=== PATIENT | female | born 1960 ===

== ENCOUNTER 2016-08-23 00:25 | Emergency (ER) | payer MEDICARE, MEDICAID ==
[2016-08-23 00:40] VITALS: BP 134/69; PULSE 61; RESP 17; TEMP 98.5; O2SAT 98
[2016-08-23] MEDS ORDERED: Sodium Chloride 0.9% 1,000 ML IV STA (00:53)
--- NOTE | 2016-08-23 00:58 | ED PDOC ---
HPI: Abdomen Time Seen by Provider: 08/23/16 00:37 Chief Complaint (Nursing): Abdominal Pain Chief Complaint (Provider): abdominal pain History Per: Patient History/Exam Limitations: no limitations Onset/Duration Of Symptoms: Days (1) Current Symptoms Are (Timing): Still Present Location Of Pain/Discomfort: Epigastric Quality Of Discomfort: Burning, "Pain" Associated Symptoms: Nausea, Vomiting (x2) Additional History Per: Patient Additional Complaint(s): 56 y/o female here for eval of abdominal pain x 5 hours. Patient states she didn't feel well since eating a jalepeno pepper earlier today; associated vomiting x 2. Patient states she called her PMD and was told to take Pepto Bismol but she did not have any so she decided to come here. Denies fever, chest pain, shortness of breath, palpitations, changes in bowel movements, recent travel, sick contacts. Past Medical History Reviewed: Historical Data, Nursing Documentation, Vital Signs Vital Signs: Last Vital Signs Temp 98.5 F 08/23/16 00:37 Pulse 61 08/23/16 00:37 Resp 17 08/23/16 00:37 BP 134/69 08/23/16 00:37 Pulse Ox 98 08/23/16 03:36 - Medical History PMH: Anxiety, Arthritis, Bipolar Disorder, Depression, Diabetes, HTN, Hypercholesterolemia, Hyperthyroidism, Hypothyroidism, Schizophrenia Denies: Hepatitis, HIV, Chronic Kidney Disease, Seizures, Sexually Transmitted Disease - Surgical History Surgical History: Cholecystectomy, Hernia Repair (umbilical hernia repair) - Family History Family History: States: Unknown Family Hx - Immunization History Hx Tetanus Toxoid Vaccination: Yes Hx Influenza Vaccination: Yes Hx Pneumococcal Vaccination: Yes - Home Medications Home Medications: Ambulatory Orders Medication Instructions Recorded Benztropine [Cogentin] 1 mg PO BID #60 tab 04/21/16 Haloperidol [Haldol] 5 mg PO BID #60 tab 04/21/16 Levothyroxine [Synthroid] 88 mcg PO DAILY@0630 #30 tab 04/21/16 [place] Carbonate ER Tab [[place] 450 mg PO Q12 #60 tab 04/21/16 Carbonate] Losartan [Cozaar] 50 mg PO DAILY #30 tab 04/21/16 Omeprazole 20 mg PO DAILY #30 04/21/16 Pramipexole [Mirapex] 1 mg PO BID #60 tab 04/21/16 Pregabalin [Lyrica] 75 mg PO BID #30 cap 04/21/16 Rosuvastatin Calcium [Crestor] 10 mg PO DAILY #30 tab 04/21/16 metFORMIN [glucOPHAGE] 500 mg PO BIDWM #60 tab 04/21/16 traZODone [Desyrel] 50 mg PO HS PRN #30 tab 04/21/16 DiphenhydrAMINE [Benadryl] 25 mg PO Q6 #8 cap 06/25/16 Prednisone [Deltasone] 20 mg PO BID #4 tablet 06/25/16 Famotidine [Pepcid] 20 mg PO BID #20 tab 08/23/16 Nitrofurantoin Macrocrystals 100 mg PO BID #13 cap 08/23/16 [Macrobid] Ondansetron ODT [Zofran ODT] 4 mg PO Q8 PRN #10 odt 08/23/16 - Allergies Allergies/Adverse Reactions: Allergies Allergy/AdvReac Type Severity Reaction Status Date / Time tomato Allergy RASH Verified 10/06/15 12:52 - Laboratory Results Result Diagrams: 08/23/16 01:16 08/23/16 01:16 - ECG O2 Sat by Pulse Oximetry: 98 - Progress ED Course And Treament: labs, neneuriIV fluids, IV zofran, IV pepcid, CTuri EXAM: CT Abdomen and Pelvis With Intravenous Contrast CLINICAL HISTORY: 56 years old, female; Pain; Abdominal pain; Generalized; Prior surgery; Surgery date: 6+ months; Surgery type: Gall bladder removed; Additional info: Abd pain, vomiting, elevated lipase TECHNIQUE: Axial computed tomography images of the abdomen and pelvis with intravenous contrast. This CT exam was performed using one or more of the following dose reduction techniques : automated exposure control, adjustment of the mA and/or kV according to patient size, and/ or use of iterative reconstruction technique. Coronal and sagittal reformatted images were created and reviewed. CONTRAST: 90 mL of [id number] administered intravenously. COMPARISON: No relevant prior studies available. FINDINGS: Lower thorax: Minimal atelectasis/scarring. ABDOMEN: Liver: Unremarkable. No mass. Gallbladder and bile ducts: Cholecystectomy. No ductal dilation. Pancreas: No peripancreatic stranding. No peripancreatic collection. Spleen: No splenomegaly. Adrenals: No mass. Kidneys and ureters: Too small to characterize lesion within RIGHT kidney. No hydronephrosis. Stomach and bowel: No definite mural thickening. No obstruction. Appendix: Normal caliber. No inflammation. PELVIS: Bladder: Unremarkable. Reproductive: Unremarkable as visualized. ABDOMEN and PELVIS: Intraperitoneal space: No significant fluid collection. No free air Bones/joints: No acute fracture. Soft tissues: Unremarkable. Vasculature: Patent splenic artery and vein. Mild atherosclerotic disease. No aneurysm. Lymph nodes: Several subcentimeter short axis mesenteric lymph nodes, nonspecific. IMPRESSION: 1. No CT evidence of pancreatitis or complications related to pancreatitis. 2. Incidental/non-acute findings are described above. On re-eval, patient states pain resolved; tolerating PO Patient educatd on findings, discharged with rx Macrobid (dose given in ED), zofran, pepcid. Advised follow up PMD 2-3 days. Return to ED for worsening/concerning symptoms. Disposition - Clinical Impression Clinical Impression: Abdominal pain, UTI (urinary tract infection) - Patient ED Disposition Is Patient to be Admitted: No Counseled Patient/Family Regarding: Studies Performed, Diagnosis, Need For Followup, Rx Given - Disposition Disposition: Routine/Home Disposition Time: 04:00 Condition: IMPROVED Prescriptions: Famotidine [Pepcid] 20 mg PO BID #20 tab Nitrofurantoin Macrocrystals [Macrobid] 100 mg PO BID #13 cap Ondansetron ODT [Zofran ODT] 4 mg PO Q8 PRN #10 odt PRN Reason: Nausea/Vomiting Instructions: Abdominal Pain (ED), Urinary Tract Infection in Women (ED) Print Language: ARABIC
[2016-08-23 01:23] LABS: BASO # 0.1 K/uL (0.0-0.2); BASO % 0.7 % (0.0-2.0); EOS # 0.3 K/uL (0.0-0.7); EOS % 3.3 % (0.0-4.0); LYMPH # 2.3 K/uL (1.0-4.3); LYMPH % 29.1 % (20.0-40.0); MEAN CORPUSCULAR HEMOGLOBIN 31.4 pg (27.0-31.0); MEAN CORPUSCULAR HGB CONC 33.4 g/dL (33.0-37.0); MEAN PLATELET VOLUME 8.5 fl (7.2-11.7); MONO # 0.6 K/uL (0.0-0.8); MONO % 7.1 % (0.0-10.0); NEUT # 4.8 K/uL (1.8-7.0); NEUT % 59.8 % (50.0-75.0); NRBC % 0.1 % (0.0-0.0); RED CELL DISTRIBUTION WIDTH 13.3 % (11.5-14.5)
[2016-08-23 01:37] LABS: ALB/GLOB RATIO 1.5 (1.0-2.1); ALKALINE PHOSPHATASE 98 U/L (38-126); ALT/SGPT 43 U/L (9-52); AST/SGOT 28 U/L (14-36); BILIRUBIN,TOTAL 1.1 mg/dl (0.2-1.3); BLOOD UREA NITROGEN 11 mg/dl (7-17); CALCIUM 9.6 mg/dL (8.4-10.2); CARBON DIOXIDE 25 mmol/L (22-30); CHLORIDE 104 mmol/L (98-107); GFR AFRICAN-AMERICAN > 60; GLUCOSE,RANDOM 194 mg/dL (65-105); LIPASE 425 U/L (23-300); POTASSIUM 4.3 MMOL/L (3.6-5.0); SODIUM 140 mmol/l (132-148); TOTAL PROTEIN 6.8 G/DL (6.3-8.2)
[2016-08-23 01:58] LABS: RBC URINE 4 /hpf (0-3); URINE BILIRUBIN NEGATIVE (NEGATIVE); URINE BLOOD NEGATIVE (NEGATIVE); URINE COLOR YELLOW (YELLOW); URINE GLUCOSE (UA) NEG (Normal); URINE KETONE NEGATIVE (NEGATIVE); URINE LEUKOCYTE ESTERASE MOD Leu/uL (Negative); URINE PROTEIN NEGATIVE (NEGATIVE); WBC URINE 11 /hpf (0-5)
[2016-08-23] MEDS ORDERED: Iohexol 300 50 ML ONE (02:34)
[2016-08-23] MEDS ORDERED: Sodium Chloride 0.9% 50 ML IV ONE (02:35)
--- NOTE | 2016-08-23 03:31 | CT ---
EXAM: CT Abdomen and Pelvis With Intravenous Contrast CLINICAL HISTORY: 56 years old, female; Pain; Abdominal pain; Generalized; Prior surgery; Surgery date: 6+ months; Surgery type: Gall bladder removed; Additional info: Abd pain, vomiting, elevated lipase TECHNIQUE: Axial computed tomography images of the abdomen and pelvis with intravenous contrast. This CT exam was performed using one or more of the following dose reduction techniques: automated exposure control, adjustment of the mA and/or kV according to patient size, and/or use of iterative reconstruction technique. Coronal and sagittal reformatted images were created and reviewed. CONTRAST: 90 mL of [id number] administered intravenously. COMPARISON: No relevant prior studies available. FINDINGS: Lower thorax: Minimal atelectasis/scarring. ABDOMEN: Liver: Unremarkable. No mass. Gallbladder and bile ducts: Cholecystectomy. No ductal dilation. Pancreas: No peripancreatic stranding. No peripancreatic collection. Spleen: No splenomegaly. Adrenals: No mass. Kidneys and ureters: Too small to characterize lesion within RIGHT kidney. No hydronephrosis. Stomach and bowel: No definite mural thickening. No obstruction. Appendix: Normal caliber. No inflammation. PELVIS: Bladder: Unremarkable. Reproductive: Unremarkable as visualized. ABDOMEN and PELVIS: Intraperitoneal space: No significant fluid collection. No free air. Bones/joints: No acute fracture. Soft tissues: Unremarkable. Vasculature: Patent splenic artery and vein. Mild atherosclerotic disease. No aneurysm. Lymph nodes: Several subcentimeter short axis mesenteric lymph nodes, nonspecific. IMPRESSION: 1. No CT evidence of pancreatitis or complications related to pancreatitis. 2. Incidental/non-acute findings are described above.
== END 2016-08-23 04:08 | disposition home or self-care (01) ==
LOC: H.ER 00:25
DX: N39.0 Urinary tract infection, site not specified (principal); R10.9 Unspecified abdominal pain; R11.10 Vomiting, unspecified
CPT/HCPCS: 74177; 80053; 81003; 83690; 85025; 96361; 96374; 96375; 99284; J2405; J7040; Q9967

== ENCOUNTER 2016-10-16 02:42 | Inpatient (IN) | payer MEDICARE, MEDICAID ==
[2016-10-16 02:53] VITALS: O2SAT 98
[2016-10-16] MEDS ORDERED: Sodium Chloride 0.9% 1,000 ML IV STA (03:18)
--- NOTE | 2016-10-16 03:22 | ED PDOC ---
HPI: General Adult Time Seen by Provider: 10/16/16 03:04 Chief Complaint (Nursing): Abdominal Pain Chief Complaint (Provider): abdomen, leg, feet cramps History Per: Patient History/Exam Limitations: no limitations Onset/Duration Of Symptoms: Days, Waxing/Waning Current Symptoms Are (Timing): Still Present Additional History Per: Patient Additional Complaint(s): 56 y/o female presents for eval of intermittent abdominal, leg, and feet cramps x weeks. Patient states she is taking Lyrica for symptoms but they are not helping. Patient states she thinks these symptoms are "affecting my psyche". HPI limited, patient poor historian, going off on tangents but able to be redirected, laughing at self. States she is compliant with psych medications. Denies fever, nausea/vomiting, chest pain, shortness of breath, palpitations, recent travel, suicidal/homicidal ideations. Past Medical History Reviewed: Historical Data, Nursing Documentation, Vital Signs Vital Signs: Last Vital Signs Temp 98.2 F 10/16/16 02:50 Pulse 72 10/16/16 02:50 Resp 16 10/16/16 02:50 BP 154/102 H 10/16/16 02:50 Pulse Ox 98 10/16/16 05:57 - Medical History PMH: Anxiety, Arthritis, Bipolar Disorder, Depression, Diabetes, HTN, Hypercholesterolemia, Hyperthyroidism, Hypothyroidism, Schizophrenia Denies: Hepatitis, HIV, Chronic Kidney Disease, Seizures, Sexually Transmitted Disease - Surgical History Surgical History: Cholecystectomy, Hernia Repair (umbilical hernia repair) - Family History Family History: States: Unknown Family Hx - Social History Current smoker - smoking cessation education provided: No Alcohol: None Drugs: Denies - Immunization History Hx Tetanus Toxoid Vaccination: Yes Hx Influenza Vaccination: Yes Hx Pneumococcal Vaccination: Yes - Home Medications Home Medications: Ambulatory Orders Medication Instructions Recorded Benztropine [Cogentin] 1 mg PO BID #60 tab 04/21/16 Haloperidol [Haldol] 5 mg PO BID #60 tab 04/21/16 Levothyroxine [Synthroid] 88 mcg PO DAILY@0630 #30 tab 04/21/16 [place] Carbonate ER Tab [[place] 450 mg PO Q12 #60 tab 04/21/16 Carbonate] Losartan [Cozaar] 50 mg PO DAILY #30 tab 04/21/16 Omeprazole 20 mg PO DAILY #30 capsule. 04/21/16 Pramipexole [Mirapex] 1 mg PO BID #60 tab 04/21/16 Pregabalin [Lyrica] 75 mg PO BID #30 cap 04/21/16 Rosuvastatin Calcium [Crestor] 10 mg PO DAILY #30 tab 04/21/16 metFORMIN [glucOPHAGE] 500 mg PO BIDWM #60 tab 04/21/16 traZODone [Desyrel] 50 mg PO HS PRN #30 tab 04/21/16 DiphenhydrAMINE [Benadryl] 25 mg PO Q6 #8 cap 06/25/16 Prednisone [Deltasone] 20 mg PO BID #4 tablet 06/25/16 Famotidine [Pepcid] 20 mg PO BID #20 tab 08/23/16 Nitrofurantoin Macrocrystals 100 mg PO BID #13 cap 08/23/16 [Macrobid] Ondansetron ODT [Zofran ODT] 4 mg PO Q8 PRN #10 odt 08/23/16 - Allergies Allergies/Adverse Reactions: Allergies Allergy/AdvReac Type Severity Reaction Status Date / Time tomato Allergy RASH Verified 10/16/16 02:50 Review of Systems ROS Statement: Except As Marked, All Systems Reviewed And Found Negative Gastrointestinal: Positive for: Abdominal Pain Musculoskeletal: Positive for: Leg Pain Psych: Positive for: Psychosis Physical Exam - Reviewed Nursing Documentation Reviewed: Yes Vital Signs Reviewed: Yes - Physical Exam Appears: Positive for: Well, Non-toxic, No Acute Distress Head Exam: Positive for: ATRAUMATIC, NORMAL INSPECTION, NORMOCEPHALIC Skin: Positive for: Normal Color Eye Exam: Positive for: Normal appearance ENT: Positive for: Normal ENT Inspection Cardiovascular/Chest: Positive for: Regular Rate, Rhythm Respiratory: Positive for: Normal Breath Sounds Gastrointestinal/Abdominal: Positive for: Tenderness (epigastric) Back: Positive for: Normal Inspection Extremity: Positive for: Normal ROM. Negative for: Pedal Edema, Calf Tenderness , Swelling Neurologic/Psych: Positive for: Alert, Oriented, Mood/Affect (manic) - Laboratory Results Result Diagrams: 10/16/16 03:36 10/16/16 03:36 - ECG ECG: Positive for: Viewed By Me (reviewed by ED attending) ECG Rhythm: Positive for: Sinus Bradycardia O2 Sat by Pulse Oximetry: 98 Pulse Ox Interpretation: Normal - Radiology X-Ray: Viewed By Mo X-Ray Interpretation: No Acute Disease - Progress ED Course And Treament: labs, urine, IV fluids, IV pepcid, crisis eval Patient evaluated by labor relations worker; to be admitted as per Robert Sepulveda. Medical Decision Making Medical Decision Making: Case discussed with ED attending Dr. Hernandez, who agrees patient medically stable for psych admission Disposition - Clinical Impression Clinical Impression: Abdominal cramps, Leg cramps, Schizophrenia - Disposition Referrals: Delilah Chang MD [Primary Care Provider] - Disposition Time: 05:59 Condition: STABLE
[2016-10-16 03:39] LABS: BASO % 0.4 % (0.0-2.0); EOS # 0.3 K/uL (0.0-0.7); EOS % 2.7 % (0.0-4.0); LYMPH % 30.8 % (20.0-40.0); MEAN CELL VOLUME 94.6 fl (81.0-99.0); MEAN CORPUSCULAR HEMOGLOBIN 32.3 pg (27.0-31.0); MEAN CORPUSCULAR HGB CONC 34.1 g/dL (33.0-37.0); MEAN PLATELET VOLUME 8.2 fl (7.2-11.7); MONO # 0.5 K/uL (0.0-0.8); MONO % 5.3 % (0.0-10.0); NEUT % 60.8 % (50.0-75.0); NRBC % 0.1 % (0.0-0.0); RBC 4.02 Mil/uL (3.80-5.20); RED CELL DISTRIBUTION WIDTH 14.3 % (11.5-14.5); WHITE BLOOD COUNT 9.8 K/uL (4.8-10.8)
[2016-10-16 03:48] LABS: ALB/GLOB RATIO 1.5 (1.0-2.1); ALBUMIN 4.5 g/dL (3.5-5.0); ALT/SGPT 63 U/L (9-52); AST/SGOT 34 U/L (14-36); BLOOD UREA NITROGEN 14 mg/dl (7-17); GFR AFRICAN-AMERICAN > 60; GFR NON-AFRICAN AMERICAN > 60; LIPASE 336 U/L (23-300)
[2016-10-16 05:42] LABS: SQUAMOUS EPITHIAL < 1 /hpf (0-5); URINE BACTERIA RARE (<OCC); URINE BILIRUBIN NEGATIVE (NEGATIVE); URINE BLOOD NEGATIVE (NEGATIVE); URINE CLARITY CLEAR (Clear); URINE COLOR YELLOW (YELLOW); URINE GLUCOSE (UA) NEG (Normal); URINE LEUKOCYTE ESTERASE NEG Leu/uL (Negative); URINE NITRATE NEGATIVE (NEGATIVE); URINE PROTEIN NEGATIVE (NEGATIVE); URINE UROBILINOGEN 0.2-1.0 mg/dL (0.2-1.0)
[2016-10-16 05:56] LABS: BARBITURATES, UR NEGATIVE (NEGATIVE); BENZODIAZEPINES, UR NEGATIVE (NEGATIVE); OPIATES, UR NEGATIVE (NEGATIVE); PHENCYCLIDINE, UR NEGATIVE (NEGATIVE)
[2016-10-16] MEDS ORDERED: Magnesium Hydroxide Susp 30 ml UD PO PRN (08:59)
[2016-10-16] MEDS ORDERED: Alum-Mag Hydrox-Simethicone Susp (30 mL) PO PRN (08:59)
[2016-10-16] MEDS ORDERED: DiphenhydrAMINE 50 mg/ml Inj IM PRN (08:59)
--- NOTE | 2016-10-16 09:49 | CARD ---
APPROVED REPORT EKG Measurement Heart [id number] <Conclusion> Sinus bradycardia Moderate voltage criteria for LVH, may be normal variant T wave abnormality, consider anterior ischemia Abnormal ECG
--- NOTE | 2016-10-16 10:40 | RAD ---
HISTORY: admit COMPARISON: Comparison chest dated 04/19/2016. Comparison also made with prior the CT scan abdomen pelvis 08/23/2016 which imaged both lung bases. FINDINGS: LUNGS: Minimal linear atelectasis/ scarring left lung base PLEURA: No significant pleural effusion identified, no pneumothorax apparent. CARDIOVASCULAR: Normal. OSSEOUS STRUCTURES: No significant abnormalities. VISUALIZED UPPER ABDOMEN: Normal. OTHER FINDINGS: None. IMPRESSION: Minimal linear atelectasis/ scarring left lung base
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
[2016-10-16 20:01] VITALS: RESP 18
[2016-10-17] MEDS: Levothyroxine 88 MCG TAB PO SCH (06:27)
[2016-10-17 08:51] LABS: T4 12.1 ug/dl (5.5-11.0)
--- NOTE | 2016-10-17 11:10 | PCM.PYCHPN ---
Psychiatric Progress Note - Psychiatric Progress Note Patient seen today, length of contact: discussed with team Patient Chief Complaint: i feel more calm Problems Identified/Issues Discussed: pt states she is feeling better. endorses improved sleep. states she may have missed her medications when she was in the community. she is without aggression or agitation. Medication Change: No Medical Record Reviewed: Yes Mental Status Examination - Cognitive Function Orientation: Person, Place, Situation, Time Memory: Intact Attention: WNL Concentration: WNL Association: WNL Fund of Knowledge: [facility] Decription of patient's judgement and insights: fair - Mood Mood: Neutral - Affect Affect: Broad - Speech Speech: Appropriate - Formal Thought Process Formal Thought Process: Loosening of associations Psychotic Thoughts and Behaviors: improved - Suicidal Ideation Suicidal Ideation: No - Homicidal Ideation Homicidal Ideation: No Goal/Treatment Plan - Goal/Treatment Plan Need for Continued Stay: Remain at risks for inpatient hospitalization Progress Toward Problem(s) and Goals/Treatment Plan: schizoaffective disorder lithium level low- may have been non-adherent- will recheck in 3 days continue current medications disposition planning Estimated Date of D/C: 10/20/16
[2016-10-17 18:30] VITALS: TEMP 97.7
[2016-10-18] MEDS: Levothyroxine 88 MCG TAB PO SCH (06:08)
[2016-10-18 08:51] VITALS: BP 157/84; PULSE 58
--- NOTE | 2016-10-18 13:11 | PCM.PYCHDC ---
Mental Status Examination - Mental Status Examination Orientation: Person, Place, Situation, Time Memory: Intact Mood: Neutral Affect: Broad Speech: Appropriate Attention: WNL Concentration: WNL Association: WNL Fund of Knowledge: WNL Formal Thought Process: Delusions, Loosening of associations, Flight of ideas Description of patient's judgement and insight: fair Psychotic Thoughts and Behaviors: denies a/v hallucinations. pt with some loosening of associations Suicidal Ideation: No Current Homicidal Ideation?: No Plan: pt denies any suicidal or homicidal thoughts/plans of intent Discharge Summary - Discharge Note Reason for Hospitalization: lois, non-adherence with treatment Psychiatric History (includes Medical, Family, Personal Hx): history of schizoaffective disorder Laboratory Data: Abnormal Lab Results 10/17/16 10/17/16 08:15 08:15 Hemoglobin A1c 6.5 RPR Nonreactive t4 is elevated, dr casillas following Consultations:: List each consultation separately and include: 1. Reason for request. 2. Findings. 3. Follow-up Consultations: seen by dr. casillas Summary of Hospital Course include:: 1. Description of specific treatment plan utilized for patients during their course of treatmen. 2. Summarize the time- course for resolution of acute symptoms and/or regressed behaviors. 3. Describe issues identified and worked on during hospitalization. 4. Describe medication utilized. 5. Describe medical problems identified and treated. 6. Reassessment of suicide risk Summary of Hospital Course: pt reported no sleep for 72 hours. apparently adherent to meds, but no lithium level checked in ER. she is presenting as delusional, manic and with disorganized thoughts. pt is pacing the halls, stating she is feeling too energetic. she discusses how her delusions tell her that this proposal manager writer is a necktie stitcher, so she is worried to say too much. she is agreeable to start her usual medications. per chart pt has not been sleeping and pt's son was also concerned with her recent behavior. hospital course admitted to [facility] and oriented to the unit. placed on routine safety protocols. seen by her medical doctor. started back on her home medications which she tolerated. her symptoms improved. she was denying any suicidal or homicidal thoughts at the time of discharge. she was agreeing to return to her adult day program and other providers - Final Diagnosis (DSM 5) Condition upon Discharge: STABLE DSM 5: schizoaffective disorder Disposition: HOME/ ROUTINE Follow-up Treatment Plan: follow up with aftercare as directed take medications as prescribed do not use alcohol, tobacco or other illicit substances call 911 if any suicidal or homicidal thoughts Prescriptions/Medication Reconciliation: Atorvastatin [Lipitor] 20 mg PO DAILY #30 tab Benztropine [Cogentin] 1 mg PO BID #60 tab Haloperidol [Haldol] 5 mg PO BID #60 tab Levothyroxine [Synthroid] 88 mcg PO DAILY@0630 #30 tab [place] Carbonate [[place] Carbonate 300MG] 300 mg PO TID #45 cap Losartan [Cozaar] 50 mg PO DAILY #30 tab metFORMIN [glucOPHAGE] 500 mg PO BID #60 tab traZODone [Desyrel] 50 mg PO HS PRN #30 tab PRN Reason: Insomnia - Smoking Cessation Smoking Cessation Medication prescribed: No - Antipsychotic Medications Pt discharged on 2 or more routine antipsychotic medications: No
--- NOTE | 2016-10-30 12:08 | CON ---
THE PT LABS WERE REVIEWED. THEY WERE DATED 08/03/2016. HER BLOOD GLUCOSE 125. BUN 12. CREATININE 0.65. ALT 47, WHICH WAS SLIGHTLY ELEVATED ABOVE THE NORMAL RANGE OF 32 Iu/L. LDL 105 mg/dL. TRIGLYCERIDES 153 mg/dL. HCL 36 mg/dL. Hb A1c ON 08/03/16 WAS 6.5, WHICH WAS ON TARGET. TSH 1.80 uIU/mL. VITAMIN D 25 HYDROXY 14.9, WHICH WAS LOW. THE PT HAD NORMAL URINE MICROALBUMIN OF 18.9 ug/mL. CC: THE PT DOES COMPLAIN OF OCCASIONAL NUMBNESS AND TINGLING OF HER FEET. SHE HAS BEEN STARTED ON LYRICA 75 mg TWICE DAILY. PMHX: HYPOTHYROIDISM, PROTEINURIA, DIABETIC NEUROPATHY, GASTRITIS, OSTEOARTHRITIS, BIPOLAR DISORDER ALLERGIES: NO KNOWN DRUG ALLERGIES MEDICATIONS: LEVEMIR 10 UNITS SUBACUTE QAM, LOSARTAN 15 mg DAILY, LEVOXYL 88 MICROGRAMS DAILY. OMEPRAZOLE 20 MG DAILY HOURS BEFORE BREAKFAST, CRESTOR 10 MG DAILY, LYRICA 75 MG TWICE DAILY, MIRAPEX 1 MG TWICE DAILY OB HX:G1 F1 L1 SOCIAL HX: PT DOES NOT SMOKE CIGARETTES OR CONSUME ETOH. FAMILY HX: FATHER WITH HX OF DIABETES. MOTHER SECONDARY TO COLON CA. PT HAS 4 BROTHERS AND 1 SISTER WHO ARE HEALTHY. ROS: UNREMARKABLE EXCEPT MENTIONED ABOVE PEX: 56 YEAR OLD COOPERATIVE FEMALE VITAL SIGNS- BP 118/76, HR 72 BPM, TEMP: 98.6, RR: 16 RESP/MIN SKIN: WARM, DRY HEENT: ATRAUMATIC AND NORMOCEPHALIC, ANICTERIC SCLERA, PUPILS EQUAL ROUND AND REACTIVE TO LIGHT AND ACCOMMODATION, NECK SUPPLE, NO JVD, NO LYMPHADENOPATHY LUNGS: CLEAR TO AUSCULTATION HEART: RRR NORMAL S1S2, NO MURMUR ABD: POSITIVE BS, SOFT, NONTENDER EXTREMITIES: NO CYANOSIS, CLUBBING OR EDEMA IMPRESSIONS: DIABETES WITH NEUROPATHY HTN HYPERCHOLESTEROLEMIA ELEVATED LIVER FUNCTION STUDIES HYPERTHYROIDISM GASTRITIS BIPOLAR DISORDER CBC AND COMP METABOLIC PANEL WELL UA HAVE BEEN ORDERED. THE PT WILL CONTINUE ON METFORMIN ER 500 MG TWICE DAILY. THE PT WILL CONTINUE ON LEVOTHYROXINE 88 MICROGRAMS DAILY FOR MANAGEMENT OF HYPOTHYROIDISM. FINGER STICKS QAM PRIOR TO BREAKFAST HAS BEEN ORDERED. THE PT WILL BE ON A 1600 CALORIE ADA DIET. MTDD
== END 2016-10-18 14:08 | disposition home or self-care (01) | DRG 885 ==
LOC: H.ER 02:42 → H.ERHOLD 05:58 → H.PSYCH 08:52
PROVIDERS: ADMIT Psychiatry & Neurology Psychiatry; ATTEND Nurse Practitioner Psychiatric/Mental Health
PROC: GZ56ZZZ Individual Psychotherapy, Supportive (ICD-10-PCS; principal; 2016-10-16)
DX: F25.9 Schizoaffective disorder, unspecified (principal); E11.9 Type 2 diabetes mellitus without complications; I10 Essential (primary) hypertension; E03.9 Hypothyroidism, unspecified; Z91.018 Allergy to other foods; E78.00 Pure hypercholesterolemia, unspecified; Z91.19 Patient's noncompliance with other medical treatment and regimen

== ENCOUNTER 2016-10-22 11:20 | Emergency (ER) | payer MEDICARE, MEDICAID ==
[2016-10-22 11:26] VITALS: BMI 24.8
--- NOTE | 2016-10-22 12:13 | ED PDOC ---
HPI: Psych/Substance Abuse Time Seen by Provider: 10/22/16 11:31 Chief Complaint (Nursing): Psychiatric Evaluation Chief Complaint (Provider): Denies complaint - History of bipolar, acting manic History Per: Patient History/Exam Limitations: no limitations Onset/Duration Of Symptoms: Days Additional Complaint(s): Pt denies complaint. PT was avting manic according to EMS and neighbors and a neightor called 911. Pt acting bizarre in ER discussing anatomy of the body. Past Medical History Reviewed: Historical Data, Nursing Documentation, Vital Signs Vital Signs: Last Vital Signs Temp 98.6 F 10/22/16 11:23 Pulse 95 H 10/22/16 11:23 Resp 20 10/22/16 11:23 BP 165/91 H 10/22/16 11:23 Pulse Ox 96 10/22/16 11:23 - Medical History PMH: Bipolar Disorder, Diabetes, HTN - Surgical History Surgical History: No Surg Hx - Family History Family History: States: No Known Family Hx - Living Arrangements Living Arrangements: With Family (Son) - Social History Alcohol: None Drugs: Denies - Allergies Allergies/Adverse Reactions: Allergies Allergy/AdvReac Type Severity Reaction Status Date / Time No Known Allergies Allergy Verified 10/22/16 11:25 Review of Systems ROS Statement: Except As Marked, All Systems Reviewed And Found Negative Constitutional: Negative for: Fever, Chills Cardiovascular: Negative for: Chest Pain Respiratory: Negative for: Shortness of Breath Psych: Positive for: Other Physical Exam - Reviewed Nursing Documentation Reviewed: Yes Vital Signs Reviewed: Yes - Physical Exam Appears: Positive for: Well, Non-toxic, No Acute Distress Head Exam: Positive for: ATRAUMATIC, NORMAL INSPECTION, NORMOCEPHALIC Skin: Positive for: Normal Color, Warm, DRY Eye Exam: Positive for: Normal appearance ENT: Positive for: Normal ENT Inspection Neck: Positive for: Normal, Painless ROM Cardiovascular/Chest: Positive for: Regular Rate, Rhythm Respiratory: Positive for: CNT, Normal Breath Sounds Gastrointestinal/Abdominal: Positive for: Normal Exam, Bowel Sounds, Soft Back: Positive for: Normal Inspection Extremity: Positive for: Normal ROM Neurologic/Psych: Positive for: Alert, Oriented - Laboratory Results Result Diagrams: 10/22/16 11:50 10/22/16 11:50 - ECG O2 Sat by Pulse Oximetry: 96 Medical Decision Making Medical Decision Making: PT medically stable for admission to psychiatric unit. Disposition - Clinical Impression Clinical Impression: Bipolar 1 disorder - Patient ED Disposition Is Patient to be Admitted: Yes Counseled Patient/Family Regarding: Need For Followup - Disposition Disposition: Discharged to Psych Hospital Disposition Time: 20:19 Condition: STABLE
[2016-10-22 12:48] LABS: HEMOGLOBIN 14.3 g/dL (12.0-16.0); MEAN CELL VOLUME 94.6 fl (81.0-99.0); MEAN CORPUSCULAR HGB CONC 33.8 g/dL (33.0-37.0); RBC 4.48 Mil/uL (3.80-5.20); RED CELL DISTRIBUTION WIDTH 14.6 % (11.5-14.5); WHITE BLOOD COUNT 9.8 K/uL (4.8-10.8)
[2016-10-22 12:50] LABS: SQUAMOUS EPITHIAL < 1 /hpf (0-5); URINE BACTERIA RARE (<OCC); URINE BILIRUBIN NEGATIVE (NEGATIVE); URINE BLOOD NEGATIVE (NEGATIVE); URINE CALCIUM OXALATE CRYSTALS FEW /hpf (<OCC); URINE CLARITY SLIGHTY-CLOUDY (Clear); URINE COLOR YELLOW (YELLOW); URINE GLUCOSE (UA) NEG (Normal); URINE LEUKOCYTE ESTERASE LARGE Leu/uL (Negative); URINE NITRATE NEGATIVE (NEGATIVE); URINE PROTEIN 30 mg/dL (NEGATIVE)
[2016-10-22 12:57] LABS: ALB/GLOB RATIO 1.5 (1.0-2.1); ALBUMIN 5.1 g/dL (3.5-5.0); ALT/SGPT 66 U/L (9-52); AST/SGOT 46 U/L (14-36); BLOOD UREA NITROGEN 18 mg/dl (7-17); CALCIUM 10.3 mg/dL (8.4-10.2); GFR AFRICAN-AMERICAN > 60; GFR NON-AFRICAN AMERICAN > 60
[2016-10-22 13:06] LABS: BARBITURATES, UR NEGATIVE (NEGATIVE); BENZODIAZEPINES, UR NEGATIVE (NEGATIVE); OPIATES, UR NEGATIVE (NEGATIVE); PHENCYCLIDINE, UR NEGATIVE (NEGATIVE)
--- NOTE | 2016-10-22 14:57 | RAD ---
HISTORY: admission COMPARISON: No prior study available comparison FINDINGS: LUNGS: No active pulmonary disease. PLEURA: No significant pleural effusion identified, no pneumothorax apparent. CARDIOVASCULAR: Normal. OSSEOUS STRUCTURES: Mild multilevel degenerative spondylosis of the thoracic spine VISUALIZED UPPER ABDOMEN: Normal. OTHER FINDINGS: None. IMPRESSION: No acute infiltrates.
--- NOTE | 2016-10-22 18:20 | US ---
HISTORY: abnormal LFT COMPARISON: None. TECHNIQUE: Sonographic evaluation of the abdomen. Examination is limited due to patient's inability to breath hold. FINDINGS: LIVER: Measures approximately 15 cm. Liver demonstrates smooth contour however increased echotexture suggesting fatty infiltration. Other infiltrative hepatocellular disease process not excluded. No mass. No intrahepatic bile duct dilatation. GALLBLADDER: Gallbladder is not visualized on this study. Clinical correlation with history recommended. . COMMON BILE DUCT: Measures 5.8 mm mm. No stones. No dilatation. PANCREAS: Pancreas is not visualized due to body habitus and bowel gas. RIGHT KIDNEY: Measures 10.9 x 4.5 x 6.2cm. Normal echogenicity. No calculus, mass, or hydronephrosis. LEFT KIDNEY: Measures 10.7 x 4.7 x 4.3cm. Normal echogenicity. No calculus, mass, or hydronephrosis. SPLEEN: Spleen exhibits normal size measuring approximately 0.6 cm. No evidence of splenic mass collection or calcification. AORTA: No aneurysmal dilatation. IVC: Unremarkable. OTHER FINDINGS: None. IMPRESSION: The liver exhibits increased echotexture likely representing fatty infiltration however other infiltrative hepatic cellular disease process not excluded. Clinical correlation recommended. The gallbladder is not visualized. Correlation with surgical history recommended. Pancreas is also not visualized due to body habitus and bowel gas as well as inability for patient to breath hold
[2016-10-22 19:42] VITALS: BP 157/79; PULSE 57; RESP 18; TEMP 98.2
[2016-10-22 20:20] VITALS: O2SAT 96
--- NOTE | 2016-11-24 17:57 | CARD ---
APPROVED REPORT EKG Measurement Heart [id number] <Conclusion> Normal sinus rhythm Minimal voltage criteria for LVH, may be normal variant Cannot rule out Anterior infarct, age undetermined T wave abnormality, consider lateral ischemia Abnormal ECG
== END 2016-10-22 21:48 | disposition short-term general hospital (02) ==
LOC: EDBD 11:20 → H.ER 11:20 → MERGE 11:20 → H.ER 21:48
DX: F31.9 Bipolar disorder, unspecified (principal); Z00.8 Encounter for other general examination
CPT/HCPCS: 71010; 76700; 80053; 80178; 81003; 84484; 85027; 93005; 99282; G0480

== ENCOUNTER 2016-11-26 13:59 | Emergency (ER) | payer MEDICARE, MEDICAID ==
[2016-11-26 14:04] VITALS: BP 124/97; PULSE 72; RESP 18; TEMP 98; O2SAT 98
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
== END 2016-11-26 17:00 | disposition home or self-care (01) ==
LOC: H.ER 13:59
DX: F31.9 Bipolar disorder, unspecified (principal)

== ENCOUNTER 2016-11-28 20:03 | Inpatient (IN) | payer MEDICARE, MEDICAID ==
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
[2016-11-28 22:17] LABS: BASO % 0.4 % (0.0-2.0); EOS # 0.3 K/uL (0.0-0.7); EOS % 2.6 % (0.0-4.0); HEMATOCRIT 37.9 % (34.0-47.0); LYMPH # 2.3 K/uL (1.0-4.3); LYMPH % 22.6 % (20.0-40.0); MEAN CORPUSCULAR HEMOGLOBIN 32.4 pg (27.0-31.0); MEAN CORPUSCULAR HGB CONC 34.5 g/dL (33.0-37.0); MONO # 0.6 K/uL (0.0-0.8); MONO % 5.8 % (0.0-10.0); NEUT % 68.6 % (50.0-75.0); NRBC % 0.2 % (0.0-0.0); RED CELL DISTRIBUTION WIDTH 13.6 % (11.5-14.5); WHITE BLOOD COUNT 10.1 K/uL (4.8-10.8)
[2016-11-28 22:25] LABS: RBC URINE 1 /hpf (0-3); URINE BILIRUBIN NEGATIVE (NEGATIVE); URINE BLOOD NEGATIVE (NEGATIVE); URINE COLOR YELLOW (YELLOW); URINE GLUCOSE (UA) NEG (Normal); URINE KETONE NEGATIVE (NEGATIVE); URINE LEUKOCYTE ESTERASE SMALL Leu/uL (Negative); URINE PROTEIN NEGATIVE (NEGATIVE); URINE UROBILINOGEN 0.2-1.0 mg/dL (0.2-1.0); WBC URINE 6 /hpf (0-5)
[2016-11-28 22:27] LABS: ALB/GLOB RATIO 1.4 (1.0-2.1); ALCOHOL SERUM < 10 mg/dl (0-10); ALKALINE PHOSPHATASE 78 U/L (38-126); ALT/SGPT 69 U/L (9-52); AST/SGOT 48 U/L (14-36); BILIRUBIN,TOTAL 1.4 mg/dl (0.2-1.3); BLOOD UREA NITROGEN 10 mg/dl (7-17); CALCIUM 9.6 mg/dL (8.4-10.2); CARBON DIOXIDE 23 mmol/L (22-30); CHLORIDE 104 mmol/L (98-107); GFR AFRICAN-AMERICAN > 60; GLUCOSE,RANDOM 159 mg/dL (65-105); SODIUM 137 mmol/l (132-148); TOTAL PROTEIN 7.1 G/DL (6.3-8.2)
[2016-11-28] MEDS ORDERED: DiphenhydrAMINE 50 mg/ml Inj IM PRN (23:57)
--- NOTE | 2016-11-29 00:10 | PCM.BM ---
<Paddy Sewell - Last Filed: 11/29/16 00:08> Treatment Plan Problems - Problems identified on initial assessmt medication non adherance Date Initiated: 11/29/16 Time Initiated: 00:09 Assessment reference: NA Status: Active Treatment assets and liabiliti Patient Assests: cooperative, self-reliant, ADL independent, negotiates basic needs Patient Liabilities: poor support system, relationship conflicts, medical problems, imparied memory - Milieu Protocol Maintain good personal hygiene: daily Encourage regular showers, daily Remind patient to perform daily oral care, daily Assist patient to perform ADL's Maintain personal safety: every shift Educate patient to report safety concerns to staff, every shift Monitor environment for contraband/sharps Medication safety: Monitor for expected outcome, potential side effects: every shift, Assess barriers to learning: every shift, Assess readiness for medication education: every shift Family Contact Family involvement: Family/SO is involved Family contact: Patient agrees to contact Discharge/Continuing Care - Education Needs Education Needs: Patient Medication, Patient Coping Skills, Patient Community resources, Patient Activities of Daily Living, Patient Health Practices/Safety, Patient Personal Hygiene/Grooming - Discharge Discharge Criteria: Tolerates medication w/o severe side effects, Free of Suicidal thoughts, Free of agitation, Normal sleep pattern <Shelley Dawn - Last Filed: 11/29/16 10:14> Treatment assets and liabiliti Patient Assests: adapts well, cooperative, self-reliant, ADL independent, physically healthy, negotiates basic needs Patient Liabilities: poor support system, relationship conflicts, imparied memory Family Contact Family involvement: Family/SO is involved Family contact: Patient agrees to contact Family contact name: Kristopher Cooley(son) Family contacted how many times per week?: 1 Family contact comment: Patient identifies adult son, Kristopher, as primary social/ family support. Patient son has been involved in patients treatment in the past. Complaint Specialist to provide clinical updates regarding patients progress on 3NP and aftercare. - Outside Agency [facility] Care involvment: Following patient during stay Agency contact name: [facility]. ( Dr. Delaney) Agency contact number: [phone] - Goals for Treatment Patient goals for treatment: Patient to atten 3-4 groups/weekly to identify at least 2 contributing factors to symptoms of lois, develop appropriate coping skills and improve insight. Patient will be educated on importance of compliance with aftercare to improve functioning/ensure saftey in the community and reduce risks of future hospitalizations. Discharge/Continuing Care - Education Needs Education Needs: Family Medication, Family Aftercare Safety Plan, Patient Medication, Patient Coping Skills, Patient Community resources, Patient Aftercare Safety Plan - Discharge Discharge Criteria: Tolerates medication w/o severe side effects, Free of Suicidal thoughts, Free of agitation, Normal sleep pattern, Ability to care for self <Zaki Madden - Last Filed: 12/01/16 10:19>
[2016-11-29] MEDS: Levothyroxine 88 MCG TAB PO SCH (07:59)
[2016-11-29 08:40] LABS: T4 13.6 ug/dl (5.5-11.0)
[2016-11-29 08:53] LABS: THYROID STIMULATING HORMONE 3.33 mIU/ML (0.46-4.68)
--- NOTE | 2016-11-29 10:30 | RAD ---
HISTORY: clearance COMPARISON: 10/16/2016 FINDINGS: LUNGS: The lungs are clear. PLEURA: No significant pleural effusion identified, no pneumothorax apparent. CARDIOVASCULAR: The heart is normal in size. Persistent opacity in the right paratracheal region likely represents a prominent superior vena cava shadow. OSSEOUS STRUCTURES: No significant abnormalities. VISUALIZED UPPER ABDOMEN: Normal. OTHER FINDINGS: None. IMPRESSION: No active pulmonary disease.
--- NOTE | 2016-11-29 11:30 | CARD ---
APPROVED REPORT EKG Measurement Heart [id number] <Conclusion> Normal sinus rhythm Nonspecific T wave abnormality Abnormal ECG
--- NOTE | 2016-11-29 11:48 | PCM.PSYCH ---
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 pt is disorganized in terms of thoughts and appearance and is apparently not sleeping. no lithium level was obtained in ER, but it is suspected that the patient is not adherent to her medications. she is unable to give coherent reporting of events leading to the admission and thoughts become derailed. she focuses on her son leaving the home and she continues to try and convince this creative services writer that he is a wire photo operator news and not a doctor. Current Medications: Active Medications Generic Name Dose Route Start Last Admin Trade Name Freq PRN Reason Stop Dose Admin Acetaminophen 650 mg 11/28/16 23:57 Tylenol 325mg Tab PO Q4 PRN T>101.0;pain 1-7;headache Al Hydrox/Mg Hydrox/Simethicone 30 ml 11/28/16 23:57 Maalox Plus 30 Ml PO Q4 PRN Dyspepsia Benztropine Mesylate 1 mg 11/29/16 09:00 11/29/16 09:42 Cogentin PO 1 mg BID OMAR Administration Diphenhydramine HCl 50 mg 11/28/16 23:57 Benadryl IM Q6 PRN Extrapyramidal S/S Unable PO Diphenhydramine HCl 50 mg 11/28/16 23:57 Benadryl PO Q6 PRN Extrapyramidal Symptoms Diphenhydramine HCl 50 mg 11/29/16 00:01 Benadryl PO HS PRN Sleep Haloperidol 5 mg 11/28/16 23:57 Haldol PO Q4 PRN Agitation Haloperidol 5 mg 11/29/16 09:00 11/29/16 09:43 Haldol PO 5 mg BID OMAR Administration Haloperidol Lactate 5 mg 11/28/16 23:57 Haldol IM Q4 PRN Agitation, Unable to Take PO Levothyroxine Sodium 88 mcg 11/29/16 07:48 11/29/16 07:59 Synthroid PO 88 mcg DAILY@0630 OMAR Administration [place] Carbonate 300 mg 11/29/16 09:00 11/29/16 10:55 [place] Carbonate 300mg PO 300 mg TID OMAR Administration Lorazepam 2 mg 11/28/16 23:57 Ativan IM Q4 PRN Anxiety/Agitation,Unable PO Lorazepam 2 mg 11/28/16 23:57 11/29/16 01:34 Ativan PO 2 mg Q4 PRN Administration Anxiety/Agitation Trazodone HCl 50 mg 11/29/16 08:35 Desyrel PO HS PRN Insomnia lithium/haldol and trazodone Past Psychiatric History - Past Psychiatric History Previous Treatment History: Inpatient History of Abuse: denies History of ETOH/Drug Use: denies History of Family Illness: son with mental health issues Pertinent Medical Hx (Current Medical&Sleep Prob, Allergies): Allergies Allergy/AdvReac Type Severity Reaction Status Date / Time tomato Allergy RASH Verified 10/22/16 22:40 Atorvastatin [Lipitor] 20 mg PO DAILY #30 tab 10/18/16 Benztropine [Cogentin] 1 mg PO BID #60 tab 10/18/16 Haloperidol [Haldol] 5 mg PO BID #60 tab 10/18/16 Levothyroxine [Synthroid] 88 mcg PO DAILY@0630 #30 tab 10/18/16 [place] Carbonate [[place] Carbon[place] 300MG] 300 mg PO TID #45 cap 10/18/16 Losartan [Cozaar] 50 mg PO DAILY #30 tab 10/18/16 Pregabalin [Lyrica] 75 mg PO BID #0 cap 10/18/16 metFORMIN [glucOPHAGE] 500 mg PO BID #60 tab 10/18/16 traZODone [Desyrel] 50 mg PO HS PRN #30 tab 10/18/16 hypothryoidism, hypercholesterolemia, htn Review of Systems - Psychiatric Psychiatric: As Per HPI Mental Status Examination - Personal Presentation Personal Presentation: Looks stated age - Affect Affect: Broad - Motor Activity Motor Activity: Other (restless) - Reliability in Providing Information Reliability in Providing Information: Poor, due to alteration in thoughts, Poor , due to altered mood - Speech Speech: Disorganized, Tangential - Mood Mood: Anxious, Euphoric Additional comments: labile mood - Formal Thought Process Formal Thought Process: Delusions, Loosening of associations, Flight of ideas, Circumstantial, Perservation - Hallucinations/Delusions Delusions: Granduer - Obsessions/Compulsions Obsessions: No Compulsions: No - Cognitive Functions Orientation: Person, Place, Situation, Time Sensorium: Alert Attention/Concentration: Attentive Abstract Thinking: Vinson Estimate of Intelligence: Average Judgement: Intact, as evidence by: Insight regarding need for hospitalization Memory: Recent intact, as evidence by: Ability to recall events of the day, Remote intact, as evidenced by: Abilit to recall sig. life events - Risk Risk: Suicidal (denies any si currently.), Diminished functioning - Strength & Assets Inventory Strength & Assets Inventory: Life experience - Limitations Limitations: Living alone (conflicts with son) DSM 5 DX - DSM 5 DSM 5 Diagnosis: schizoaffective disorder, bipolar type - Recommended/Plan of Treatment Treatment Recommendations and Plan of Treatment: admit to 3np for safety and observation gather collateral information provide supportive therapy adjust medications- restart home meds, check lithium level and t/c starting haldol dec hospitalist consult disposition planning Projected ELOS: 7-10 day Prognosis: fair
--- NOTE | 2016-11-29 13:52 | CP.PCM.CON ---
History of Present Illness - History of Present Illness History of Present Illness: Reason for Consult: per hospital protocol HPI 56 year old female, PMH hyperlipidemia, hypothyroid, hypertension, diabetes mellitus non insulin dependent admitted for schizoaffective disorder, bipolar type. Patient is extremely manic, unable to obtain and history at this time ROS: per HPI, 12 systems reviewed and negative PMH: unable to obtain PSH: unable to obtain FH: unable to obtain SH: denies tobacco, ETOH, IVDU Meds: as below Allergies: NKDA Surrogate Decision Maker: unable to obtain Vitals: reviewed and currently stable Exam: GEN: WDWN, alert, cooperative HEENT: NCAT, PERRL, EOMI NECK: supple, no JVD, no lymphadenopathy CARDIAC: +S1S2 RRR LUNG: CTAB No WRR ABD: SOFT NT ND BSX4 NO MASSES NO HSM EXT: +pedal pulses, equal strength NEURO: AAOx3 SKIN warm, dry PSYCH normal mood, normal affect Labs: 11/28/16 22:00 11/28/16 22:00 Active Medications: 11/28/16 23:57 Acetaminophen [Tylenol 325mg tab] 650 mg PO Q4 PRN Aluminum Hydroxide/Magnesium [Maalox Plus 30 ml] 30 ml PO Q4 PRN DiphenhydrAMINE [Benadryl] 50 mg IM Q6 PRN DiphenhydrAMINE [Benadryl] 50 mg PO Q6 PRN Haloperidol Lactate [Haldol] 5 mg IM Q4 PRN Haloperidol [Haldol] 5 mg PO Q4 PRN LORazepam [Ativan] 2 mg IM Q4 PRN LORazepam [Ativan] 2 mg PO Q4 PRN 11/29/16 00:01 DiphenhydrAMINE [Benadryl] 50 mg PO HS PRN 11/29/16 07:48 Levothyroxine [Synthroid] 88 mcg PO DAILY@0630 11/29/16 08:35 traZODone [Desyrel] 50 mg PO HS PRN 11/29/16 09:00 Benztropine [Cogentin] 1 mg PO BID Haloperidol [Haldol] 5 mg PO BID [place]ah Carbonate [T[place]amah Carbonate 300MG] 300 mg PO TID 11/29/16 17:00 Pregabalin [Lyrica] 75 mg PO BID metFORMIN [glucOPHAGE] 500 mg PO BID 11/30/16 06:30 Levothyroxine [Synthroid] 88 mcg PO DAILY@0630 11/30/16 09:00 Atorvastatin [Lipitor] 20 mg PO DAILY Losartan [Cozaar] 50 mg PO DAILY Assessment and Plan: 56 year old female, PMH hyperlipidemia, hypothyroid, hypertension, diabetes mellitus non insulin dependent admitted for schizoaffective disorder, bipolar type. Patient is extremely manic, unable to obtain and history at this time HYPERTENSION continue cozaar HYPOTHYROID continue synthroid HYPERLIPIDEMIA continue lipitor DIABETES MELLITUS continue metformin, accuchecks SCHIZOAFFECTIVE DISORDER management per psych Past Patient History - Infectious Disease Hx of Infectious Diseases: None - Past Social History Smoking Status: Never Smoked - CARDIAC Hx Hypercholesterolemia: Yes Hx Hypertension: Yes - PULMONARY Hx Tuberculosis: No - NEUROLOGICAL Hx Seizures: No - HEENT Hx HEENT Problems: No - RENAL Hx Chronic Kidney Disease: No - ENDOCRINE/METABOLIC Hx Hyperthyroidism: Yes Hx Hypothyroidism: (presently active) - HEMATOLOGICAL/ONCOLOGICAL Hx Human Immunodeficiency Virus (HIV): No - INTEGUMENTARY Hx Dermatological Problems: No - MUSCULOSKELETAL/RHEUMATOLOGICAL Hx Arthritis: Yes - GASTROINTESTINAL Hx Gastrointestinal Disorders: Yes Hx Gastroesophageal Reflux: Yes - GENITOURINARY/GYNECOLOGICAL Hx Sexually Transmitted Disorders: No - PSYCHIATRIC Hx Substance Use: No - SURGICAL HISTORY Hx Cholecystectomy: Yes - ANESTHESIA Hx Anesthesia: Yes Hx Anesthesia Reactions: No Hx Malignant Hyperthermia: No Meds Allergies/Adverse Reactions: Allergies Allergy/AdvReac Type Severity Reaction Status Date / Time tomato Allergy RASH Verified 10/22/16 22:40 - Medications Medications: Current Medications Acetaminophen (Tylenol 325mg Tab) 650 mg PO Q4 PRN PRN Reason: T>101.0;pain 1-7;headache Al Hydrox/Mg Hydrox/Simethicone (Maalox Plus 30 Ml) 30 ml PO Q4 PRN PRN Reason: Dyspepsia Benztropine Mesylate (Cogentin) 1 mg PO BID [facility] Last Admin: 11/29/16 09:42 Dose: 1 mg Diphenhydramine HCl (Benadryl) 50 mg IM Q6 PRN PRN Reason: Extrapyramidal S/S Unable PO Diphenhydramine HCl (Benadryl) 50 mg PO Q6 PRN PRN Reason: Extrapyramidal Symptoms Diphenhydramine HCl (Benadryl) 50 mg PO HS PRN PRN Reason: Sleep Haloperidol (Haldol) 5 mg PO Q4 PRN PRN Reason: Agitation Haloperidol (Haldol) 5 mg PO BID [facility] Last Admin: 11/29/16 09:43 Dose: 5 mg Haloperidol Lactate (Haldol) 5 mg IM Q4 PRN PRN Reason: Agitation, Unable to Take PO Levothyroxine Sodium (Synthroid) 88 mcg PO DAILY@0630 [facility] Last Admin: 11/29/16 07:59 Dose: 88 mcg Tekamah Carbonate (Tekamah Carbonate 300mg) 300 mg PO TID [facility] Last Admin: 11/29/16 10:55 Dose: 300 mg Lorazepam (Ativan) 2 mg IM Q4 PRN PRN Reason: Anxiety/Agitation,Unable PO Lorazepam (Ativan) 2 mg PO Q4 PRN PRN Reason: Anxiety/Agitation Last Admin: 11/29/16 01:34 Dose: 2 mg Trazodone HCl (Desyrel) 50 mg PO HS PRN PRN Reason: Insomnia Results - Vital Signs Recent Vital Signs: Last Vital Signs Temp 97.7 F 11/29/16 09:00 Pulse 67 11/29/16 09:00 Resp 18 11/29/16 09:00 BP 133/93 H 11/29/16 09:00 Pulse Ox 100 11/28/16 23:00 - Labs Result Diagrams: 11/28/16 22:00 11/28/16 22:00 Labs: Laboratory Results - last 24 hr 11/29/16 11/29/16 07:30 07:30 Hemoglobin A1c 6.8 H Triglycerides 126 Cholesterol 116 LDL Cholesterol Direct 60 HDL Cholesterol 35 Thyroxine (T4) 13.6 H Total T3 1.03 L TSH 3rd Generation 3.33
[2016-11-30] MEDS: Levothyroxine 88 MCG TAB PO SCH (06:09)
[2016-11-30] MEDS ORDERED: Levothyroxine 88 MCG TAB PO SCH (06:30)
--- NOTE | 2016-11-30 09:39 | PCM.PYCHPN ---
Psychiatric Progress Note - Psychiatric Progress Note Patient seen today, length of contact: discussed with team Patient Chief Complaint: no depakote please Problems Identified/Issues Discussed: pt with rapid speech. is intrusive. poor sleep. grandiose. disorganized thoughts. she is agreeable to continue treatment here. disrupts groups. Medication Change: Yes Medical Record Reviewed: Yes Mental Status Examination - Cognitive Function Orientation: Person, Place, Situation, Time Memory: Intact Attention: Poor Concentration: Poor Association: Loose Fund of Knowledge: WNL Decription of patient's judgement and insights: superficial insight - Mood Mood: Anxious, Euphoric - Affect Affect: Broad - Speech Speech: Loud, Pressured - Formal Thought Process Formal Thought Process: Delusions, Loosening of associations, Flight of ideas, Circumstantial, Perservation - Suicidal Ideation Suicidal Ideation: No - Homicidal Ideation Homicidal Ideation: No Goal/Treatment Plan - Goal/Treatment Plan Need for Continued Stay: Remain at risks for inpatient hospitalization, Severe functional impairment Progress Toward Problem(s) and Goals/Treatment Plan: schizoaffective disorder, bipolar type manic continue lithium increase haldol standing ativan all to address lois/psychosis encourage participation in groups disposition planning Estimated Date of D/C: 12/08/16
[2016-12-01] MEDS: Levothyroxine 88 MCG TAB PO SCH (06:02)
--- NOTE | 2016-12-01 10:02 | PCM.PYCHPN ---
Psychiatric Progress Note - Psychiatric Progress Note Patient seen today, length of contact: discussed with team Patient Chief Complaint: yelling in tunisian/turkish at this senior writer Problems Identified/Issues Discussed: pt fighting sleep, loud, intrusive, irritable. threatening staff last night. did take medications with prompting, including depakote today. DSM 5 Symptoms Update: flight of ideas, disorganized thoughts, irritable/threatening Medication Change: Yes Medical Record Reviewed: Yes Mental Status Examination - Cognitive Function Orientation: Person, Place, Situation, Time Memory: Intact Attention: Poor Concentration: Poor Association: Loose Fund of Knowledge: WNL Decription of patient's judgement and insights: superficial insight - Mood Mood: Anxious, Euphoric - Affect Affect: Broad - Speech Speech: Loud, Pressured - Formal Thought Process Formal Thought Process: Delusions, Loosening of associations, Flight of ideas, Circumstantial, Perservation Psychotic Thoughts and Behaviors: grossly disorganized thoughts/behaviors. - Suicidal Ideation Suicidal Ideation: No - Homicidal Ideation Homicidal Ideation: No Goal/Treatment Plan - Goal/Treatment Plan Need for Continued Stay: Remain at risks for inpatient hospitalization, Severe functional impairment Progress Toward Problem(s) and Goals/Treatment Plan: schizoaffective disorder, bipolar type manic continue lithium continue haldol start depakote standing ativan all to address lois/psychosis encourage participation in groups disposition planning- may need to screen for involuntary hospitalization Estimated Date of D/C: 12/08/16
[2016-12-01] MEDS: Divalproex 500 mg DR(BID formulation) PO SCH ×2 (13:08→17:13)
[2016-12-02] MEDS: Levothyroxine 88 MCG TAB PO SCH (06:28)
[2016-12-02] MEDS: Divalproex 500 mg DR(BID formulation) PO SCH ×2 (09:08→09:12)
--- NOTE | 2016-12-02 09:56 | PCM.PYCHPN ---
Psychiatric Progress Note - Psychiatric Progress Note Patient seen today, length of contact: discussed with team Patient Chief Complaint: pt has remained very paranoid with manic mood and continues to refuse depakote because she is on lithium and pt has been screened and accepted at [facility] .pt is not sleeping and becoming more agitated . Medication Change: Yes Medical Record Reviewed: Yes Mental Status Examination - Cognitive Function Orientation: Person, Place, Situation, Time Memory: Intact Attention: Poor Concentration: Poor Association: Loose Fund of Knowledge: WNL - Mood Mood: Anxious, Euphoric - Affect Affect: Broad - Speech Speech: Loud, Pressured - Formal Thought Process Formal Thought Process: Delusions, Loosening of associations, Flight of ideas, Circumstantial, Perservation - Suicidal Ideation Suicidal Ideation: No - Homicidal Ideation Homicidal Ideation: No Goal/Treatment Plan - Goal/Treatment Plan Need for Continued Stay: Remain at risks for inpatient hospitalization, Severe functional impairment Progress Toward Problem(s) and Goals/Treatment Plan: will contninue to titrate lithium which she is taking and encourage compliance .will increase trazodone. will transfer pt to [facility] when bed is available Estimated Date of D/C: 12/08/16
[2016-12-03] MEDS: Levothyroxine 88 MCG TAB PO SCH (06:17)
[2016-12-03] MEDS: Divalproex 500 mg DR(BID formulation) PO SCH ×2 (09:12→17:44)
--- NOTE | 2016-12-03 11:56 | PCM.PYCHPN ---
Psychiatric Progress Note - Psychiatric Progress Note Patient seen today, length of contact: discussed with team Patient Chief Complaint: pt has remained very paranoid with manic mood and continues to refuse depakote because she is on lithium and pt has been screened and accepted at [facility] .pt is not sleeping and becoming more agitated . Medication Change: Yes Medical Record Reviewed: Yes Mental Status Examination - Cognitive Function Orientation: Person, Place, Situation, Time Memory: Intact Attention: Poor Concentration: Poor Association: Loose Fund of Knowledge: WNL - Mood Mood: Anxious, Euphoric - Affect Affect: Broad - Speech Speech: Loud, Pressured - Formal Thought Process Formal Thought Process: Delusions, Loosening of associations, Flight of ideas, Circumstantial, Perservation - Suicidal Ideation Suicidal Ideation: No - Homicidal Ideation Homicidal Ideation: No Goal/Treatment Plan - Goal/Treatment Plan Need for Continued Stay: Remain at risks for inpatient hospitalization, Severe functional impairment Progress Toward Problem(s) and Goals/Treatment Plan: will contninue to titrate lithium which she is taking and encourage compliance .will increase trazodone. will transfer pt to [facility] when bed is available Estimated Date of D/C: 12/08/16
[2016-12-04] MEDS: Levothyroxine 88 MCG TAB PO SCH (07:17)
[2016-12-04] MEDS: Divalproex 500 mg DR(BID formulation) PO SCH ×2 (09:09→18:21)
--- NOTE | 2016-12-04 09:25 | PCM.PYCHPN ---
Psychiatric Progress Note - Psychiatric Progress Note Patient seen today, length of contact: discussed with team Patient Chief Complaint: pt counting in azeri Problems Identified/Issues Discussed: pt continues to pace and disrupt the unit with loud speech and intrusive behaviors. she is refusing depakote. she has been screened and is accepted at [facility] [place]. Medication Change: Yes Medical Record Reviewed: Yes Mental Status Examination - Cognitive Function Orientation: Person, Place, Situation, Time Memory: Intact Attention: Poor Concentration: Poor Association: Loose Fund of Knowledge: WNL Decription of patient's judgement and insights: poor - Mood Mood: Anxious, Euphoric - Affect Affect: Broad - Speech Speech: Loud, Pressured - Formal Thought Process Formal Thought Process: Delusions, Loosening of associations, Flight of ideas, Circumstantial, Perservation - Suicidal Ideation Suicidal Ideation: No - Homicidal Ideation Homicidal Ideation: No Goal/Treatment Plan - Goal/Treatment Plan Need for Continued Stay: Remain at risks for inpatient hospitalization, Severe functional impairment Progress Toward Problem(s) and Goals/Treatment Plan: schizoaffective disorder, bipolar type manic continue lithium- check lithium level continue haldol [facility] to address lois/psychosis encourage participation in groups disposition planning- awaiting transfer to [facility] Estimated Date of D/C: 12/08/16
[2016-12-05] MEDS: Levothyroxine 88 MCG TAB PO SCH (06:16)
[2016-12-05] MEDS: Divalproex 500 mg DR(BID formulation) PO SCH ×2 (08:45→16:38)
--- NOTE | 2016-12-05 11:23 | PCM.PYCHPN ---
Psychiatric Progress Note - Psychiatric Progress Note Patient seen today, length of contact: discussed with team Patient Chief Complaint: no c/o today Problems Identified/Issues Discussed: pt less intrusive and more redirectable today. continues to have flight of ideas and is elated. refusing to take depakote. no c/o side effects. Medication Change: No ( ) Medical Record Reviewed: Yes Mental Status Examination - Cognitive Function Orientation: Person, Place, Situation, Time Memory: Intact Attention: Poor Concentration: Poor Association: Loose Fund of Knowledge: WNL Decription of patient's judgement and insights: poor - Mood Mood: Anxious, Euphoric - Affect Affect: Broad - Speech Speech: Loud, Pressured - Formal Thought Process Formal Thought Process: Delusions, Loosening of associations, Flight of ideas, Circumstantial, Perservation - Suicidal Ideation Suicidal Ideation: No - Homicidal Ideation Homicidal Ideation: No Goal/Treatment Plan - Goal/Treatment Plan Need for Continued Stay: Remain at risks for inpatient hospitalization, Severe functional impairment Progress Toward Problem(s) and Goals/Treatment Plan: schizoaffective disorder, bipolar type manic continue lithium- level is 0.6 - will increase dose continue haldol start depakote continue standing ativan all to address lois/psychosis encourage participation in groups disposition planning- awaiting transfer to [facility] [place] Estimated Date of D/C: 12/08/16
[2016-12-06] MEDS: Levothyroxine 88 MCG TAB PO SCH (06:26)
[2016-12-06] MEDS: Divalproex 500 mg DR(BID formulation) PO SCH ×2 (09:05→17:02)
--- NOTE | 2016-12-06 09:55 | PCM.PYCHPN ---
Psychiatric Progress Note - Psychiatric Progress Note Patient seen today, length of contact: discussed with team Patient Chief Complaint: pt refusing meds Problems Identified/Issues Discussed: pt refusing increase in meds, refusing depakote. she follows this lyric writer around the unit speaking rapidly in icelandic and laughing and talking to self. pt with improved sleep. Medication Change: No ( ) Medical Record Reviewed: Yes Mental Status Examination - Cognitive Function Orientation: Person, Place, Situation, Time Memory: Intact Attention: Poor Concentration: Poor Association: Loose Fund of Knowledge: WNL Decription of patient's judgement and insights: poor - Mood Mood: Anxious, Euphoric - Affect Affect: Broad - Speech Speech: Loud, Pressured - Formal Thought Process Formal Thought Process: Delusions, Loosening of associations, Flight of ideas, Circumstantial, Perservation - Suicidal Ideation Suicidal Ideation: No - Homicidal Ideation Homicidal Ideation: No Goal/Treatment Plan - Goal/Treatment Plan Need for Continued Stay: Remain at risks for inpatient hospitalization, Severe functional impairment Progress Toward Problem(s) and Goals/Treatment Plan: schizoaffective disorder, bipolar type manic will make lithium 300mg bid and 600mg hs continue haldol continue to try and have pt take depakote continue standing ativan - although pt is refusing all to address lois/psychosis encourage participation in groups disposition planning- awaiting transfer to [facility] [place] Estimated Date of D/C: 12/08/16
[2016-12-06] MEDS: Alum-Mag Hydrox-Simethicone Susp (30 mL) PO PRN (23:24)
[2016-12-07] MEDS: Levothyroxine 88 MCG TAB PO SCH (08:14)
[2016-12-07] MEDS: Divalproex 500 mg DR(BID formulation) PO SCH (09:02)
--- NOTE | 2016-12-07 09:56 | PCM.PYCHPN ---
Psychiatric Progress Note - Psychiatric Progress Note Patient seen today, length of contact: discussed with team Patient Chief Complaint: i need to check my bus pass Problems Identified/Issues Discussed: pt took increase in lithium last night. she is continuing to refuse depakote. she is intrusive, loud and with disorganized thoughts. she is awaiting transfer to [facility] [place] [place]. Medication Change: Yes (dc depakote) Medical Record Reviewed: Yes Mental Status Examination - Cognitive Function Orientation: Person, Place, Situation, Time Memory: Intact Attention: Poor Concentration: Poor Association: Loose Fund of Knowledge: WNL Decription of patient's judgement and insights: poor - Mood Mood: Anxious, Euphoric - Affect Affect: Broad - Speech Speech: Loud, Pressured - Formal Thought Process Formal Thought Process: Delusions, Loosening of associations, Flight of ideas, Circumstantial, Perservation - Suicidal Ideation Suicidal Ideation: No - Homicidal Ideation Homicidal Ideation: No Goal/Treatment Plan - Goal/Treatment Plan Need for Continued Stay: Remain at risks for inpatient hospitalization, Severe functional impairment Progress Toward Problem(s) and Goals/Treatment Plan: schizoaffective disorder, bipolar type manic continue lithium 300mg bid and 600mg hs continue haldol dc depakote as pt is refusing continue standing ativan encourage participation in groups disposition planning- awaiting transfer to [facility] [place] Estimated Date of D/C: 12/08/16
[2016-12-08] MEDS: Alum-Mag Hydrox-Simethicone Susp (30 mL) PO PRN (02:20)
[2016-12-08 06:26] VITALS: O2SAT 100
[2016-12-08] MEDS: Levothyroxine 88 MCG TAB PO SCH (06:38)
[2016-12-08 08:27] VITALS: BP 156/81; PULSE 62; RESP 18; TEMP 98.5
--- NOTE | 2016-12-08 10:25 | PCM.BM ---
Treatment Plan Problems - Problems identified on initial assessmt medication non adherance Date Initiated: 11/29/16 Time Initiated: 00:09 Assessment reference: NA Status: Active Treatment assets and liabiliti Patient Assests: adapts well, cooperative, self-reliant, ADL independent, physically healthy, negotiates basic needs Patient Liabilities: poor support system, relationship conflicts, imparied memory - Milieu Protocol Maintain good personal hygiene: daily Encourage regular showers, daily Remind patient to perform daily oral care, daily Assist patient to perform ADL's Maintain personal safety: every shift Educate patient to report safety concerns to staff, every shift Monitor environment for contraband/sharps Medication safety: Monitor for expected outcome, potential side effects: every shift, Assess barriers to learning: every shift, Assess readiness for medication education: every shift Milieu Narrative: schizoaffective disorder, bipolar type manic continue lithium 300mg bid and 600mg hs continue haldol dc depakote as pt is refusing continue standing ativan encourage participation in groups disposition planning- [place] [facility] [place] Contact Family involvement: Family/SO is involved Family contact: Patient agrees to contact Family contact name: Kristopher Cooley(son) Family contacted how many times per week?: 1 Family contact comment: Patient identifies adult son, Kristopher, as primary social/ family support. Patient son has been involved in patients treatment in the past. Manufacturing Laborer to provide clinical updates regarding patients progress on 3NP and aftercare. - Outside Agency [facility] Care involvment: Following patient during stay Agency contact name: [facility]. ( Dr. Delaney) Agency contact number: [phone] - Goals for Treatment Patient goals for treatment: Patient to atten 3-4 groups/weekly to identify at least 2 contributing factors to symptoms of lois, develop appropriate coping skills and improve insight. Patient will be educated on importance of compliance with aftercare to improve functioning/ensure saftey in the community and reduce risks of future hospitalizations. Discharge/Continuing Care - Education Needs Education Needs: Family Medication, Family Aftercare Safety Plan, Patient Medication, Patient Coping Skills, Patient Community resources, Patient Activities of Daily Living, Patient Health Practices/Safety, Patient Personal Hygiene/Grooming, Patient Aftercare Safety Plan - Discharge Discharge Criteria: Tolerates medication w/o severe side effects, Free of Suicidal thoughts, Free of agitation, Normal sleep pattern, Ability to care for self - Treatment Team Participation Patient/Family/SO Statement: schizoaffective disorder, bipolar type manic continue lithium 300mg bid and 600mg hs continue haldol dc depakote as pt is refusing continue standing ativan encourage participation in groups disposition planning- [place] [facility] [place] Treatment Plan Review Patient participation: Yes Family/SO/Caregiver participation: Yes Additional Comments: Pt awaiting bed to be transferred to [facility] [place] for involuntary eval. - Problem medication non adherance Date Initiated: 12/08/16 Time Initiated: 10:25 Progress toward outcomes: unchanged
--- NOTE | 2016-12-08 10:55 | PCM.PYCHPN ---
Psychiatric Progress Note - Psychiatric Progress Note Patient seen today, length of contact: in treatment team Patient Chief Complaint: you aren't treating my "pancreatit" Problems Identified/Issues Discussed: pt with no c/o gi distress. she is bizarre and disorganized and is refusing to take any higher dose of lithium. she refuses depakote. she won't allow medication changes. she is pacing and intrusive at times. Medication Change: Yes (return lithium to low dose as she will only take it that way) Medical Record Reviewed: Yes Mental Status Examination - Cognitive Function Orientation: Person, Place, Situation, Time Memory: Intact Attention: Poor Concentration: Poor Association: Loose Fund of Knowledge: WNL Decription of patient's judgement and insights: poor - Mood Mood: Anxious, Euphoric - Affect Affect: Broad - Speech Speech: Loud, Pressured - Formal Thought Process Formal Thought Process: Delusions, Loosening of associations, Flight of ideas, Circumstantial, Perservation - Suicidal Ideation Suicidal Ideation: No - Homicidal Ideation Homicidal Ideation: No Goal/Treatment Plan - Goal/Treatment Plan Need for Continued Stay: Remain at risks for inpatient hospitalization, Severe functional impairment Progress Toward Problem(s) and Goals/Treatment Plan: schizoaffective disorder, bipolar type manic return lithium to 300mg tid continue haldol continue standing ativan encourage participation in groups disposition planning- awaiting transfer to [facility] [place] Estimated Date of D/C: 12/08/16
--- NOTE | 2016-12-08 11:56 | PCM.PYCHDC ---
Mental Status Examination - Mental Status Examination Orientation: Person, Place, Situation, Time Memory: Intact Mood: Anxious Affect: Other (labile) Speech: Loud, Pressured Attention: Poor Concentration: Poor Association: Loose Fund of Knowledge: WNL Formal Thought Process: Delusions, Paranoia, Loosening of associations Description of patient's judgement and insight: poor Psychotic Thoughts and Behaviors: grossly disorganized thoughts/behaviors. Suicidal Ideation: No Current Homicidal Ideation?: No Discharge Summary - Discharge Note Reason for Hospitalization: disruptive/intrusive behaviors, non-adherence with treatment Psychiatric History (includes Medical, Family, Personal Hx): multiple previous hospitalizations Laboratory Data: Abnormal Lab Results 12/06/16 12/07/16 12/07/16 21:20 12:11 17:06 POC Glucose (mg/dL) 195 H 180 H 176 H 12/07/16 12/08/16 12/08/16 20:57 06:42 11:21 POC Glucose (mg/dL) 160 H 136 H 183 H Consultations:: List each consultation separately and include: 1. Reason for request. 2. Findings. 3. Follow-up Consultations: seen by the hospitalist Summary of Hospital Course include:: 1. Description of specific treatment plan utilized for patients during their course of treatmen. 2. Summarize the time- course for resolution of acute symptoms and/or regressed behaviors. 3. Describe issues identified and worked on during hospitalization. 4. Describe medication utilized. 5. Describe medical problems identified and treated. 6. Reassessment of suicide risk Summary of Hospital Course: 56 yo female with history of schizoaffective disorder, has been hospitalized in october with lois and disorganized thoughts and again has bee presenting to the ER in manic state and having conflicts with her son who apparently now is moving out. pt is disorganized in terms of thoughts and appearance and is apparently not sleeping. no lithium level was obtained in ER, but it is suspected that the patient is not adherent to her medications. she is unable to give coherent reporting of events leading to the admission and thoughts become derailed. she focuses on her son leaving the home and she continues to try and convince this process description writer that he is a leaflet or newspaper deliverer and not a doctor. pt was admitted to [facility] and oriented to the unit. was restarted on home meds. lithium level was 0.6 and her dose was increased as she was presenting as manic. she refused increased dose. she refused to take another mood stabilizer. she was loud/intrusive and demanding to leave the hospital. she was screened and accepted at [facility] and transfered when a bed was available. - Final Diagnosis (DSM 5) Condition upon Discharge: STABLE DSM 5: schizoaffective disorder, bipolar type Disposition: DISCH TO PSYCH HOSP PLAN READ Follow-up Treatment Plan: follow up with treatment at [facility] [place] - Smoking Cessation Smoking Cessation Medication prescribed: No - Antipsychotic Medications Pt discharged on 2 or more routine antipsychotic medications: No
== END 2016-12-08 12:32 | DRG 885 ==
LOC: H.ER 20:03 → H.ERHOLD 22:53 → H.PSYCH 23:17
PROVIDERS: ADMIT Psychiatry & Neurology Psychiatry; ATTEND Psychiatry & Neurology Psychiatry
PROC: GZHZZZZ Group Psychotherapy (ICD-10-PCS; principal; 2016-11-28)
PROC: GZ56ZZZ Individual Psychotherapy, Supportive (ICD-10-PCS; 2016-11-28)
DX: F25.0 Schizoaffective disorder, bipolar type (principal); E11.9 Type 2 diabetes mellitus without complications; I10 Essential (primary) hypertension; N39.0 Urinary tract infection, site not specified; E03.9 Hypothyroidism, unspecified; E78.00 Pure hypercholesterolemia, unspecified; E78.5 Hyperlipidemia, unspecified; Z91.14 Patient's other noncompliance with medication regimen; Z91.19 Patient's noncompliance with other medical treatment and regimen; Z91.018 Allergy to other foods

== ENCOUNTER 2017-01-03 03:09 | Emergency (ER) | payer MEDICARE, MEDICAID ==
--- NOTE | 2017-01-03 03:27 | ED PDOC ---
HPI: Psych/Substance Abuse Time Seen by Provider: 01/03/17 03:12 Chief Complaint (Nursing): Psychiatric Evaluation Chief Complaint (Provider): Psychiatric Evaluation ED Caveat: Acuity of Condition History/Exam Limitations: clinical condition Additional Complaint(s): Patient is a 56 y/o Tajik female brought to the ED by EMS, and has a history of schizoaffective disorder. According to EMS personnel, patient called 911 with vague complaints and upon arrival to the ED does not provide specific complaint. She appears preoccupied and does not respond to questions appropriately. Patient denies homicidal and suicidal ideation, as well as hallucinations. PCP: ANANYA Past Medical History Vital Signs: Last Vital Signs Temp 98.5 F 01/03/17 03:15 Pulse 52 L 01/03/17 03:15 Resp 16 01/03/17 03:15 BP 172/96 H 01/03/17 03:15 Pulse Ox 99 01/03/17 03:15 - Medical History PMH: Anxiety, Arthritis, Bipolar Disorder, Depression, HTN, Hypercholesterolemia , Hyperthyroidism, Schizophrenia Denies: Diabetes, Hepatitis, HIV, Chronic Kidney Disease, Seizures, Sexually Transmitted Disease Comment Only: Hypothyroidism (presently active) Other PMH: Schizoaffective Disorder - Surgical History Surgical History: Cholecystectomy, Hernia Repair (umbilical hernia repair) - Family History Family History: States: Unknown Family Hx - Immunization History Hx Tetanus Toxoid Vaccination: Yes Hx Influenza Vaccination: Yes Hx Pneumococcal Vaccination: Yes - Home Medications Home Medications: Ambulatory Orders Medication Instructions Recorded Atorvastatin [Lipitor] 20 mg PO DAILY #30 tab 10/18/16 Benztropine [Cogentin] 1 mg PO BID #60 tab 10/18/16 Haloperidol [Haldol] 5 mg PO BID #60 tab 10/18/16 Levothyroxine [Synthroid] 88 mcg PO DAILY@0630 #30 tab 10/18/16 [place] Carbonate [[place] 300 mg PO TID #45 cap 10/18/16 Carbonate 300MG] Losartan [Cozaar] 50 mg PO DAILY #30 tab 10/18/16 Pregabalin [Lyrica] 75 mg PO BID #0 cap 10/18/16 metFORMIN [glucOPHAGE] 500 mg PO BID #60 tab 10/18/16 traZODone [Desyrel] 50 mg PO HS PRN #30 tab 10/18/16 - Allergies Allergies/Adverse Reactions: Allergies Allergy/AdvReac Type Severity Reaction Status Date / Time tomato Allergy RASH Verified 01/03/17 03:15 Review of Systems Review Of Systems: ROS cannot be obtained secondary to pt's inabilty to answer questions. Physical Exam - Reviewed Nursing Documentation Reviewed: Yes Vital Signs Reviewed: Yes - Physical Exam Appears: Positive for: No Acute Distress Head Exam: Positive for: ATRAUMATIC, NORMOCEPHALIC Skin: Positive for: Normal Color, Warm, Dry Eye Exam: Positive for: Normal appearance. Negative for: Scleral icterus ENT: Positive for: Normal ENT Inspection Neck: Positive for: Normal Cardiovascular/Chest: Positive for: Regular Rate, Rhythm. Negative for: Murmur Respiratory: Positive for: Normal Breath Sounds. Negative for: Accessory Muscle Use Gastrointestinal/Abdominal: Positive for: Normal Exam, Soft. Negative for: Tenderness Neurologic/Psych: Positive for: Alert, Mood/Affect (inappropriate affect) Comments: Patient observed to respond to internal stimuli Patient appears internally preoccupied. - ECG O2 Sat by Pulse Oximetry: 99 (RA) Medical Decision Making Medical Decision Making: Time: 03:20 Initial Impression: 56 y/o female brought in for crisis evaluation, in setting of known schizoaffective disorder Initial Plan: --Crisis Eval 03:44 Patient was evaluated by crisis and found to be at baseline mental and functional status. Patient deemed stable for discharge home. Diagnosis: Schizoaffective disorder Scribe Attestation: Documented by Tahmina Patel, acting as a scribe for Jeronimo Manning MD Provider Scribe Attestation: All medical record entries made by the Scribe were at my direction and personally dictated by me. I have reviewed the chart and agree that the record accurately reflects my personal performance of the history, physical exam, medical decision making, and the department course for this patient. I have also personally directed, reviewed, and agree with the discharge instructions and disposition. Disposition - Clinical Impression Clinical Impression: Schizoaffective disorder - Patient ED Disposition Is Patient to be Admitted: No - Disposition Disposition: Routine/Home Disposition Time: 03:44 Condition: STABLE Instructions: Schizoaffective Disorder (ED) Forms: [facility] (Pashto)
[2017-01-03 03:56] VITALS: RESP 16; TEMP 98.5; O2SAT 99
[2017-01-03 04:00] VITALS: BP 157/83; PULSE 62
== END 2017-01-03 03:57 | disposition home or self-care (01) ==
LOC: H.ER 03:09
DX: F25.1 Schizoaffective disorder, depressive type (principal); E03.9 Hypothyroidism, unspecified; E05.90 Thyrotoxicosis, unspecified without thyrotoxic crisis or storm; E78.00 Pure hypercholesterolemia, unspecified; F31.9 Bipolar disorder, unspecified; F41.9 Anxiety disorder, unspecified; I10 Essential (primary) hypertension; Z79.84 Long term (current) use of oral hypoglycemic drugs

== ENCOUNTER 2017-01-15 23:04 | Emergency (ER) | payer MEDICARE, MEDICAID ==
[2017-01-15 23:16] VITALS: BP 127/79; PULSE 60; RESP 18; TEMP 97; O2SAT 100
--- NOTE | 2017-01-16 00:35 | ED PDOC ---
Lower Extremity Pain/Injury Time Seen by Provider: 01/15/17 23:37 Chief Complaint (Nursing): Lower Extremity Problem/Injury Chief Complaint (Provider): leg cramps History Per: Patient History/Exam Limitations: no limitations Onset/Duration Of Symptoms: Days (1 year), Waxing/Waning Additional History Per: Patient Additional Complaint(s): 56 y/o female presents for eval of intermittent bilateral leg pain/cramps x 1 year. Patient states symptoms start in feet and travel up legs. States she has been prescribed lyrica and mirapex by PMD for symptoms, has appointment in 2 days for physical therapy but presents tonight because she feels bad bothering her son with her pain when it comes. Denies chest pain, shortness of breath, palpitations, leg swelling, recent travel. Past Medical History Reviewed: Historical Data, Nursing Documentation, Vital Signs Vital Signs: Last Vital Signs Temp 97 F L 01/15/17 23:05 Pulse 60 01/15/17 23:05 Resp 18 01/15/17 23:05 BP 127/79 01/15/17 23:05 Pulse Ox 100 01/15/17 23:05 - Medical History PMH: Anxiety, Arthritis, Bipolar Disorder, Depression, HTN, Hypercholesterolemia , Hyperthyroidism, Schizophrenia Denies: Diabetes, Hepatitis, HIV, Chronic Kidney Disease, Seizures, Sexually Transmitted Disease Comment Only: Hypothyroidism (presently active) - Surgical History Surgical History: Cholecystectomy, Hernia Repair (umbilical hernia repair) - Family History Family History: States: Unknown Family Hx - Immunization History Hx Tetanus Toxoid Vaccination: Yes Hx Influenza Vaccination: Yes Hx Pneumococcal Vaccination: Yes - Home Medications Home Medications: Ambulatory Orders Medication Instructions Recorded Atorvastatin [Lipitor] 20 mg PO DAILY #30 tab 10/18/16 Benztropine [Cogentin] 1 mg PO BID #60 tab 10/18/16 Haloperidol [Haldol] 5 mg PO BID #60 tab 10/18/16 Levothyroxine [Synthroid] 88 mcg PO DAILY@0630 #30 tab 10/18/16 [place] Carbonate [[place] 300 mg PO TID #45 cap 10/18/16 Carbonate 300MG] Losartan [Cozaar] 50 mg PO DAILY #30 tab 10/18/16 Pregabalin [Lyrica] 75 mg PO BID #0 cap 10/18/16 metFORMIN [glucOPHAGE] 500 mg PO BID #60 tab 10/18/16 traZODone [Desyrel] 50 mg PO HS PRN #30 tab 10/18/16 - Allergies Allergies/Adverse Reactions: Allergies Allergy/AdvReac Type Severity Reaction Status Date / Time tomato Allergy RASH Verified 01/03/17 03:15 Review of Systems ROS Statement: Except As Marked, All Systems Reviewed And Found Negative Musculoskeletal: Positive for: Leg Pain Physical Exam - Reviewed Nursing Documentation Reviewed: Yes Vital Signs Reviewed: Yes - Physical Exam Appears: Positive for: Well, Non-toxic, No Acute Distress (sleeping) Head Exam: Positive for: ATRAUMATIC, NORMAL INSPECTION, NORMOCEPHALIC Skin: Positive for: Normal Color Cardiovascular/Chest: Positive for: Regular Rate, Rhythm Respiratory: Positive for: Normal Breath Sounds Gastrointestinal/Abdominal: Positive for: Normal Exam Back: Positive for: Normal Inspection Extremity: Positive for: Normal ROM. Negative for: Calf Tenderness Neurologic/Psych: Positive for: Alert, Oriented - Laboratory Results Result Diagrams: 01/16/17 01:00 01/16/17 01:00 - ECG O2 Sat by Pulse Oximetry: 100 - Progress ED Course And Treament: labs, accucheck, tylenol PO Patient educated on findings, discharged with instructions to continue current medications and follow up at physical therapy as scheduled on Sun. Return to ED for worsening/concerning symptoms. Disposition - Clinical Impression Clinical Impression: Leg cramps - Patient ED Disposition Is Patient to be Admitted: No Counseled Patient/Family Regarding: Studies Performed, Diagnosis, Need For Followup - Disposition Referrals: Delilah Chang MD [Primary Care Provider] - Disposition: Routine/Home Disposition Time: 02:03 Condition: IMPROVED Instructions: Leg Cramps (ED) Print Language: SLOVENIAN
[2017-01-16 01:08] LABS: BASO % 0.5 % (0.0-2.0); EOS # 0.3 K/uL (0.0-0.7); EOS % 3.4 % (0.0-4.0); HEMATOCRIT 40.6 % (34.0-47.0); LYMPH # 2.2 K/uL (1.0-4.3); LYMPH % 24.6 % (20.0-40.0); MEAN CELL VOLUME 93.2 fl (81.0-99.0); MEAN CORPUSCULAR HEMOGLOBIN 30.6 pg (27.0-31.0); MEAN CORPUSCULAR HGB CONC 32.8 g/dL (33.0-37.0); MEAN PLATELET VOLUME 8.4 fl (7.2-11.7); MONO # 0.5 K/uL (0.0-0.8); MONO % 5.3 % (0.0-10.0); NEUT # 5.9 K/uL (1.8-7.0); NEUT % 66.2 % (50.0-75.0); RED CELL DISTRIBUTION WIDTH 13.3 % (11.5-14.5)
[2017-01-16 01:14] LABS: BLOOD UREA NITROGEN 11 mg/dl (7-17); CALCIUM 9.8 mg/dL (8.4-10.2); CARBON DIOXIDE 25 mmol/L (22-30); CHLORIDE 102 mmol/L (98-107); GFR AFRICAN-AMERICAN > 60; GLUCOSE,RANDOM 202 mg/dL (65-105); POTASSIUM 4.1 MMOL/L (3.6-5.0); SODIUM 140 mmol/l (132-148)
== END 2017-01-16 02:10 | disposition home or self-care (01) ==
LOC: H.ER 23:04
DX: R25.2 Cramp and spasm (principal)

== ENCOUNTER 2017-01-19 20:02 | Emergency (ER) | payer MEDICARE, MEDICAID ==
[2017-01-19 20:15] VITALS: RESP 18; TEMP 98; O2SAT 98
[2017-01-19 22:09] VITALS: PULSE 65
[2017-01-19 23:34] VITALS: BP 140/87
== END 2017-01-20 00:26 | disposition home or self-care (01) ==
LOC: H.ER 20:02
DX: R51 Headache (principal); I10 Essential (primary) hypertension; Z76.0 Encounter for issue of repeat prescription

== ENCOUNTER 2017-03-05 20:26 | Emergency (ER) | payer MEDICARE, MEDICAID ==
[2017-03-05 20:38] VITALS: BP 143/90; PULSE 78; RESP 17; TEMP 97.6; O2SAT 97
--- NOTE | 2017-03-05 21:59 | ED PDOC ---
HPI: Psych/Substance Abuse Time Seen by Provider: 03/05/17 21:58 Chief Complaint (Nursing): Psychiatric Evaluation Chief Complaint (Provider): insomnia x 4 days History Per: Patient (56 y/o schizophrenic here for inability to sleep x 4 days. States she is due for IM haldol tomorrow at [facility] but feels she cannot wait for medication. Denies any SI/HI . States she is compliant with her medications.) Past Medical History Reviewed: Historical Data, Nursing Documentation, Vital Signs Vital Signs: Last Vital Signs Temp 97.6 F 03/05/17 20:34 Pulse 78 03/05/17 20:34 Resp 17 03/05/17 20:34 BP 143/90 03/05/17 20:34 Pulse Ox 97 03/05/17 20:34 - Medical History PMH: Anxiety, Arthritis, Bipolar Disorder, Depression, HTN, Hypercholesterolemia , Hyperthyroidism, Hypothyroidism, Schizophrenia Denies: Chronic Kidney Disease - Surgical History Surgical History: Cholecystectomy, Hernia Repair (umbilical hernia repair) - Family History Family History: States: No Known Family Hx - Immunization History Hx Tetanus Toxoid Vaccination: Yes Hx Influenza Vaccination: Yes Hx Pneumococcal Vaccination: Yes - Home Medications Home Medications: Ambulatory Orders Medication Instructions Recorded Atorvastatin [Lipitor] 20 mg PO DAILY #30 tab 10/18/16 Benztropine [Cogentin] 1 mg PO BID #60 tab 10/18/16 Haloperidol [Haldol] 5 mg PO BID #60 tab 10/18/16 Levothyroxine [Synthroid] 88 mcg PO DAILY@0630 #30 tab 10/18/16 [place] Carbonate [[place] 300 mg PO TID #45 cap 10/18/16 Carbonate 300MG] Losartan [Cozaar] 50 mg PO DAILY #30 tab 10/18/16 Pregabalin [Lyrica] 75 mg PO BID #0 cap 10/18/16 metFORMIN [glucOPHAGE] 500 mg PO BID #60 tab 10/18/16 traZODone [Desyrel] 50 mg PO HS PRN #30 tab 10/18/16 Losartan [Cozaar] 50 mg PO DAILY #30 tab 01/19/17 Ibuprofen [Motrin] 600 mg PO Q6 PRN #15 tab 02/17/17 Cephalexin [Keflex] 500 mg PO QID #20 capsule 03/05/17 - Allergies Allergies/Adverse Reactions: Allergies Allergy/AdvReac Type Severity Reaction Status Date / Time tomato Allergy RASH Verified 03/05/17 20:38 Review of Systems ROS Statement: Except As Marked, All Systems Reviewed And Found Negative Physical Exam - Reviewed Nursing Documentation Reviewed: Yes Vital Signs Reviewed: Yes - Physical Exam Appears: Positive for: Well, Non-toxic, No Acute Distress Head Exam: Positive for: ATRAUMATIC, NORMAL INSPECTION, NORMOCEPHALIC Skin: Positive for: Normal Color, Warm, DRY Eye Exam: Positive for: EOMI, Normal appearance, PERRL ENT: Positive for: Normal ENT Inspection Neck: Positive for: Normal, Painless ROM Cardiovascular/Chest: Positive for: Regular Rate, Rhythm Respiratory: Positive for: CNT, Normal Breath Sounds Gastrointestinal/Abdominal: Positive for: Normal Exam, Bowel Sounds, Soft Back: Positive for: Normal Inspection Extremity: Positive for: Normal ROM Neurologic/Psych: Positive for: Alert, Oriented - Laboratory Results Result Diagrams: 03/05/17 22:11 03/05/17 22:11 - ECG O2 Sat by Pulse Oximetry: 97 - Progress ED Course And Treament: d/w Crisis. Known to them as non compliant schizophrenic. ativan 0.5 mg x [address] Sanchez Dx schizophrenia, uti Keflex 500 mg x 1 dose. Disposition - Clinical Impression Clinical Impression: UTI (urinary tract infection), Schizophrenia - Patient ED Disposition Is Patient to be Admitted: No - Disposition Disposition: Routine/Home Disposition Time: 23:28 Condition: FAIR Prescriptions: Cephalexin [Keflex] 500 mg PO QID #20 capsule Instructions: Schizophrenia (ED), Urinary Tract Infection in Women (DC) Forms: [employer] (Kyrgyz)
[2017-03-05 22:16] LABS: BASO % 0.3 % (0.0-2.0); EOS # 0.3 K/uL (0.0-0.7); EOS % 2.4 % (0.0-4.0); HEMATOCRIT 41.2 % (34.0-47.0); LYMPH # 2.8 K/uL (1.0-4.3); LYMPH % 26.4 % (20.0-40.0); MEAN CELL VOLUME 90.6 fl (81.0-99.0); MEAN CORPUSCULAR HEMOGLOBIN 29.6 pg (27.0-31.0); MEAN CORPUSCULAR HGB CONC 32.6 g/dL (33.0-37.0); MEAN PLATELET VOLUME 7.8 fl (7.2-11.7); MONO # 0.5 K/uL (0.0-0.8); MONO % 4.6 % (0.0-10.0); NEUT # 7.1 K/uL (1.8-7.0); NEUT % 66.3 % (50.0-75.0); NRBC % 0.1 % (0.0-0.0); RED CELL DISTRIBUTION WIDTH 13.4 % (11.5-14.5); WHITE BLOOD COUNT 10.7 K/uL (4.8-10.8)
[2017-03-05 22:37] LABS: ALCOHOL SERUM < 10 mg/dl (0-10); BLOOD UREA NITROGEN 14 mg/dl (7-17); CALCIUM 9.6 mg/dL (8.4-10.2); CARBON DIOXIDE 22 mmol/L (22-30); CHLORIDE 104 mmol/L (98-107); GFR AFRICAN-AMERICAN > 60; GLUCOSE,RANDOM 202 mg/dL (65-105); POTASSIUM 4.1 MMOL/L (3.6-5.0); SODIUM 138 mmol/l (132-148)
[2017-03-05 22:57] LABS: RBC URINE 12 /hpf (0-3); URINE BACTERIA RARE (<OCC); URINE BILIRUBIN NEGATIVE (NEGATIVE); URINE BLOOD SMALL (NEGATIVE); URINE COLOR YELLOW (YELLOW); URINE GLUCOSE (UA) NEG (Normal); URINE KETONE NEGATIVE (NEGATIVE); URINE LEUKOCYTE ESTERASE LARGE Leu/uL (Negative); URINE PROTEIN NEGATIVE (NEGATIVE); URINE UROBILINOGEN 0.2-1.0 mg/dL (0.2-1.0); WBC URINE 47 /hpf (0-5)
[2017-03-05 23:09] LABS: THYROID STIMULATING HORMONE 3.28 mIU/ML (0.46-4.68)
== END 2017-03-06 00:26 | disposition home or self-care (01) ==
LOC: H.ER 20:26
DX: G47.00 Insomnia, unspecified (principal); F20.9 Schizophrenia, unspecified; N39.0 Urinary tract infection, site not specified; E03.9 Hypothyroidism, unspecified; E05.90 Thyrotoxicosis, unspecified without thyrotoxic crisis or storm; E78.00 Pure hypercholesterolemia, unspecified; F31.9 Bipolar disorder, unspecified; F41.9 Anxiety disorder, unspecified; I10 Essential (primary) hypertension; Z79.84 Long term (current) use of oral hypoglycemic drugs
CPT/HCPCS: 80048; 81003; 82948; 84443; 85025; 87086; 99283; G0480

== ENCOUNTER 2017-03-18 18:55 | Emergency (ER) | payer MEDICAID, MEDICARE ==
[2017-03-18 19:01] VITALS: BP 135/74; PULSE 74; RESP 16; TEMP 98.1; O2SAT 99
--- NOTE | 2017-03-18 19:32 | ED PDOC ---
HPI: Psych/Substance Abuse Time Seen by Provider: 03/18/17 19:32 Chief Complaint (Nursing): Psychiatric Evaluation Chief Complaint (Provider): crisis eval Additional Complaint(s): 56-year-old female presents for crisis evaluation. Patient was discharged today from crisis inpatient psychiatric unit and she states she cannot go home because she is unable to sleep when she goes home. Patient states that she feels short of breath every time she tries to fall asleep. She is acutely anxious and paranoid upon arrival. Past Medical History Reviewed: Historical Data, Nursing Documentation, Vital Signs Vital Signs: Last Vital Signs Temp 98.1 F 03/18/17 18:59 Pulse 74 03/18/17 18:59 Resp 16 03/18/17 18:59 BP 135/74 03/18/17 18:59 Pulse Ox 99 03/18/17 18:59 - Medical History PMH: Anxiety, Arthritis, Bipolar Disorder, Depression, Diabetes, HTN, Hypercholesterolemia, Hypothyroidism, Schizophrenia - Surgical History Surgical History: Cholecystectomy, Hernia Repair (umbilical hernia repair) - Family History Family History: States: No Known Family Hx - Living Arrangements Living Arrangements: With Family - Social History Current smoker - smoking cessation education provided: No Alcohol: None Drugs: Denies - Home Medications Home Medications: Ambulatory Orders Medication Instructions Recorded Haloperidol [Haldol] 5 mg PO BID #60 tab 10/18/16 Levothyroxine [Synthroid] 88 mcg PO DAILY@0630 #30 tab 10/18/16 [place] Carbonate [[place] 300 mg PO TID #45 cap 10/18/16 Carbonate 300MG] traZODone [Desyrel] 50 mg PO HS PRN #30 tab 10/18/16 Losartan [Cozaar] 50 mg PO DAILY #30 tab 01/19/17 Benztropine [Cogentin] 1 mg PO BID #60 tab 03/18/17 Haloperidol [Haldol] 10 mg PO BID #60 tab 03/18/17 Levothyroxine [Synthroid] 88 mcg PO DAILY@0630 #30 tab 03/18/17 [place] Carbonate [[place] 300 mg PO DAILY #30 cap 03/18/17 Carbonate 300MG] [place] Carbonate [[place] 600 mg PO QPM #30 cap 03/18/17 Carbonate 300MG] hydrOXYzine HCl [Atarax] 25 mg PO TID #90 tab 03/18/17 metFORMIN [glucOPHAGE] 500 mg PO BID #60 tab 03/18/17 traZODone [Desyrel] 100 mg PO HS PRN #30 tab 03/18/17 - Allergies Allergies/Adverse Reactions: Allergies Allergy/AdvReac Type Severity Reaction Status Date / Time tomato Allergy RASH Verified 03/18/17 18:57 Review of Systems ROS Statement: Except As Marked, All Systems Reviewed And Found Negative Cardiovascular: Negative for: Chest Pain Psych: Positive for: Anxiety Physical Exam - Reviewed Nursing Documentation Reviewed: Yes Vital Signs Reviewed: Yes - Physical Exam Appears: Positive for: Well, Non-toxic, No Acute Distress Skin: Negative for: Rash Eye Exam: Positive for: Normal appearance Cardiovascular/Chest: Positive for: Regular Rate, Rhythm Respiratory: Positive for: Normal Breath Sounds. Negative for: Accessory Muscle Use, Wheezing, Respiratory Distress Neurologic/Psych: Positive for: Alert, Other (anxious, does not answers questions appropriately) - ECG O2 Sat by Pulse Oximetry: 99 Pulse Ox Interpretation: Normal Medical Decision Making Medical Decision Makin56 year old EDP Plan: Labs CXR EKG Crisis consult Disposition - Clinical Impression Clinical Impression: Anxiety - Patient ED Disposition Is Patient to be Admitted: Transfer of Care - Disposition Disposition: Transfer of Care Disposition Time: 20:00 Condition: FAIR Forms: [employer] (Ukrainian) Patient Signed Over To: Zana Nicole Handoff Comments: Signed out pending diagnostic testing results, crisis eval and final disposition
[2017-03-18 21:26] LABS: BASO % 0.2 % (0.0-2.0); EOS # 0.4 K/uL (0.0-0.7); EOS % 3.3 % (0.0-4.0); HEMATOCRIT 36.3 % (34.0-47.0); LYMPH # 2.7 K/uL (1.0-4.3); LYMPH % 24.5 % (20.0-40.0); MEAN CELL VOLUME 91.2 fl (81.0-99.0); MEAN CORPUSCULAR HEMOGLOBIN 30.2 pg (27.0-31.0); MEAN CORPUSCULAR HGB CONC 33.1 g/dL (33.0-37.0); MEAN PLATELET VOLUME 7.3 fl (7.2-11.7); MONO # 0.6 K/uL (0.0-0.8); MONO % 5.5 % (0.0-10.0); NEUT # 7.3 K/uL (1.8-7.0); NEUT % 66.5 % (50.0-75.0); NRBC % 0.1 % (0.0-0.0); RED CELL DISTRIBUTION WIDTH 13.9 % (11.5-14.5)
--- NOTE | 2017-03-18 21:26 | ED PDOC ---
- ECG O2 Sat by Pulse Oximetry: 99 - Progress ED Course And Treament: seen by crisis. diagnosis schizoaffective disorder discussed with Dr. Lewis. Disposition - Clinical Impression Clinical Impression: Anxiety, Schizo affective schizophrenia - POA Present On Arrival: None - Disposition Disposition: Routine/Home Disposition Time: 21:26 Condition: FAIR Instructions: Schizoaffective Disorder (ED) Forms: [employer] (Indonesian)
[2017-03-18 21:36] LABS: ALB/GLOB RATIO 1.2 (1.0-2.1); ALCOHOL SERUM < 10 mg/dl (0-10); ALKALINE PHOSPHATASE 112 U/L (38-126); ALT/SGPT 42 U/L (9-52); AST/SGOT 39 U/L (14-36); BILIRUBIN,TOTAL 0.5 mg/dl (0.2-1.3); BLOOD UREA NITROGEN 15 mg/dl (7-17); CALCIUM 9.3 mg/dL (8.4-10.2); CARBON DIOXIDE 24 mmol/L (22-30); CHLORIDE 103 mmol/L (98-107); GFR AFRICAN-AMERICAN > 60; GLUCOSE,RANDOM 210 mg/dL (65-105); SODIUM 139 mmol/l (132-148); TOTAL PROTEIN 7.5 G/DL (6.3-8.2)
[2017-03-18 22:08] LABS: RBC URINE 1 /hpf (0-3); URINE BACTERIA RARE (<OCC); URINE BILIRUBIN NEGATIVE (NEGATIVE); URINE BLOOD NEGATIVE (NEGATIVE); URINE COLOR YELLOW (YELLOW); URINE GLUCOSE (UA) NEG (Normal); URINE KETONE NEGATIVE (NEGATIVE); URINE LEUKOCYTE ESTERASE MOD Leu/uL (Negative); URINE PROTEIN NEGATIVE (NEGATIVE); URINE UROBILINOGEN 0.2-1.0 mg/dL (0.2-1.0); WBC URINE 7 /hpf (0-5)
--- NOTE | 2017-03-19 11:52 | RAD ---
HISTORY: Shortness of breath. Portable study 20:17. COMPARISON: 11/28/2016. FINDINGS: LUNGS: No active pulmonary disease. PLEURA: No significant pleural effusion identified, no pneumothorax apparent. CARDIOVASCULAR: No radiographic findings to suggest acute or significant cardiovascular disease. OSSEOUS STRUCTURES: No significant abnormalities. VISUALIZED UPPER ABDOMEN: Normal. OTHER FINDINGS: None. IMPRESSION: No active disease. No significant interval change compared to the prior examination(s).
--- NOTE | 2017-03-19 13:47 | CARD ---
APPROVED REPORT EKG Measurement Heart [id number] <Conclusion> Normal sinus rhythm Normal ECG
== END 2017-03-18 21:50 | disposition home or self-care (01) ==
LOC: H.ER 18:55
DX: F25.9 Schizoaffective disorder, unspecified (principal); F41.9 Anxiety disorder, unspecified; F31.9 Bipolar disorder, unspecified; E03.9 Hypothyroidism, unspecified; E11.9 Type 2 diabetes mellitus without complications; E78.00 Pure hypercholesterolemia, unspecified; I10 Essential (primary) hypertension; Z79.84 Long term (current) use of oral hypoglycemic drugs
CPT/HCPCS: 71010; 80053; 81003; 85025; 93005; 99282; G0480

== ENCOUNTER 2017-04-10 21:18 | Emergency (ER) | payer MEDICAID, MEDICARE ==
[2017-04-10 21:35] VITALS: BP 136/83; PULSE 58; RESP 18; TEMP 97.9; O2SAT 99
--- NOTE | 2017-04-10 21:46 | ED PDOC ---
HPI: Back Time Seen by Provider: 04/10/17 21:36 Chief Complaint (Nursing): Back Pain Chief Complaint (Provider): Back Pain History Per: Patient History/Exam Limitations: no limitations Current Symptoms Are (Timing): Still Present Additional Complaint(s): 56 y/o female with a past medical history of thyroid disease and diabetes who presents to the emergency department with a complaint of a lower back pain and right hand pain status post fall while working prior to arrival. States she was working in [employer] when she did not see a damaged product on the floor when she slipped and fell on the floor. Denies head injury or loss of consciousness. PMD: Dr. Delilah Chang MD Past Medical History Reviewed: Historical Data, Nursing Documentation, Vital Signs Vital Signs: Last Vital Signs Temp 97.9 F 04/10/17 21:32 Pulse 58 L 04/10/17 21:32 Resp 18 04/10/17 21:32 BP 136/83 04/10/17 21:32 Pulse Ox 99 04/10/17 21:32 - Medical History PMH: Anxiety, Arthritis, Bipolar Disorder, Depression, Diabetes, HTN, Hypercholesterolemia, Hyperthyroidism, Hypothyroidism, Schizophrenia Denies: Hepatitis, HIV, Chronic Kidney Disease, Seizures, Sexually Transmitted Disease - Surgical History Surgical History: Cholecystectomy, Hernia Repair (umbilical hernia repair) - Family History Family History: States: Unknown Family Hx - Immunization History Hx Tetanus Toxoid Vaccination: Yes Hx Influenza Vaccination: Yes Hx Pneumococcal Vaccination: Yes - Home Medications Home Medications: Ambulatory Orders Medication Instructions Recorded Haloperidol [Haldol] 5 mg PO BID #60 tab 10/18/16 Levothyroxine [Synthroid] 88 mcg PO DAILY@0630 #30 tab 10/18/16 [place] Carbonate [[place] 300 mg PO TID #45 cap 10/18/16 Carbonate 300MG] traZODone [Desyrel] 50 mg PO HS PRN #30 tab 10/18/16 Losartan [Cozaar] 50 mg PO DAILY #30 tab 01/19/17 Benztropine [Cogentin] 1 mg PO BID #60 tab 03/18/17 Haloperidol [Haldol] 10 mg PO BID #60 tab 03/18/17 Levothyroxine [Synthroid] 88 mcg PO DAILY@0630 #30 tab 03/18/17 [place] Carbonate [[place] 300 mg PO DAILY #30 cap 03/18/17 Carbonate 300MG] [place] Carbonate [[place] 600 mg PO QPM #30 cap 03/18/17 Carbonate 300MG] hydrOXYzine HCl [Atarax] 25 mg PO TID #90 tab 03/18/17 metFORMIN [glucOPHAGE] 500 mg PO BID #60 tab 03/18/17 traZODone [Desyrel] 100 mg PO HS PRN #30 tab 03/18/17 - Allergies Allergies/Adverse Reactions: Allergies Allergy/AdvReac Type Severity Reaction Status Date / Time tomato Allergy RASH Verified 03/18/17 18:57 Review of Systems ROS Statement: Except As Marked, All Systems Reviewed And Found Negative (As per HPI, otherwise negative) Constitutional: Negative for: Other (head injury or loss of consciousness ) Musculoskeletal: Positive for: Back Pain (Lower region), Hand Pain (Right) Physical Exam - Reviewed Nursing Documentation Reviewed: Yes Vital Signs Reviewed: Yes - Physical Exam Appears: Positive for: Non-toxic, No Acute Distress Head Exam: Positive for: ATRAUMATIC, NORMAL INSPECTION, NORMOCEPHALIC Skin: Positive for: Normal Color, Warm, Dry Back: Positive for: Other (Sacral tenderness). Negative for: Normal Inspection Extremity: Positive for: Normal ROM, Tenderness (Tenderness to the right webbed space between the 1st and 2nd digits ) - ECG O2 Sat by Pulse Oximetry: 99 (RA) Pulse Ox Interpretation: Normal Medical Decision Making Medical Decision Making: Time: 2139 Initial impression: Lower back pain status post fall Initial plan: --Tylenol 650 mg PO --Right hand x-ray --Sacrum x-ray XRs NAD as read by TRACY Scribe Attestation: Documented by Manju Joseph, acting as a scribe for Janell Magana PA-C Provider Scribe Attestation: All medical record entries made by the Scribe were at my direction and personally dictated by me. I have reviewed the chart and agree that the record accurately reflects my personal performance of the history, physical exam, medical decision making, and the department course for this patient. I have also personally directed, reviewed, and agree with the discharge instructions and disposition. Disposition - Clinical Impression Clinical Impression: Sacral contusion - Patient ED Disposition Is Patient to be Admitted: No - Disposition Disposition: Routine/Home Disposition Time: 22:59 Condition: STABLE Instructions: Contusion in Adults (ED) Forms: [facility] (Northern Irish)
--- NOTE | 2017-04-11 08:29 | RAD ---
PROCEDURE: Right Hand Radiographs. HISTORY: pain s/p fall COMPARISON: None. FINDINGS: BONES: Fifth distal interphalangeal joint flexion deformity with osseous hypertrophy noted. No acute fracture line is noted. However trabecular microfracture here not excluded-prior trauma here not excluded. At minimum advanced osteoarthrosis here present. JOINTS: Fifth DIP joint osseous hypertrophy SOFT TISSUES: Normal. OTHER FINDINGS: None. IMPRESSION: Fifth distal interphalangeal joint flexion deformity with osseous hypertrophy. Advanced osteoarthrosis here suggested. Prior remote trauma with resultant deformity not excluded. . Acute on chronic pathology not excluded. No gross cortical fracture lines appreciated. Trabecular microfractures not excluded
--- NOTE | 2017-04-11 08:41 | RAD ---
PROCEDURE: Radiographs of the Sacrum and Coccyx HISTORY: pain s/p fall COMPARISON: None available. TECHNIQUE: Frontal and lateral views of the sacrum and coccyx FINDINGS: BONES: Evaluation of the inferior sacrum limited due to the overlying bowel gas and relative osteopenia per frontal view no fracture appreciated on lateral view here. The angulation at the sacrococcygeal junction is within normal limits. Mild-moderate osseous hypertrophy changes at and bordering the pubic symphyseal joint noted. Inferior to the ischial tuberosity osseous hypertrophy changes also suggested. SACROILIAC JOINTS: Minimal iliac sided left inferior sacroiliac sclerosis. OTHER FINDINGS: Bilateral hemipelvic phleboliths right side greater than left. Distended bladder suggested IMPRESSION: No acute fractures appreciated. Osseous hypertrophic changes inferior pelvic ring as above
== END 2017-04-10 22:56 | disposition home or self-care (01) ==
LOC: H.ER 21:18
DX: S30.0XXA Contusion of lower back and pelvis, initial encounter (principal); M79.641 Pain in right hand; W19.XXXA Unspecified fall, initial encounter; Y99.0 Civilian activity done for income or pay; E03.9 Hypothyroidism, unspecified; E05.90 Thyrotoxicosis, unspecified without thyrotoxic crisis or storm; E11.9 Type 2 diabetes mellitus without complications; E78.00 Pure hypercholesterolemia, unspecified; F20.9 Schizophrenia, unspecified; F31.9 Bipolar disorder, unspecified; F41.9 Anxiety disorder, unspecified; I10 Essential (primary) hypertension; Z79.84 Long term (current) use of oral hypoglycemic drugs

== ENCOUNTER 2017-04-11 17:21 | Emergency (ER) | payer MEDICAID, MEDICARE ==
--- NOTE | 2017-04-11 17:40 | ED PDOC ---
HPI: Psych/Substance Abuse Time Seen by Provider: 04/11/17 17:36 Chief Complaint (Nursing): Psychiatric Evaluation Chief Complaint (Provider): Anxious History Per: Patient History/Exam Limitations: no limitations Suicide/Self Injury Attempted (Context): None Modifying Factor(s): None Severity: None Associated Symptoms: Anxiety Additional Complaint(s): 56 year old female who has a past medical history of bipolar disorder, anxiety and schizophrenia presents to the ED to be evaluated. The patient states that she has an appointment with her doctor tomorrow to get an injection but does not want to wait until then. She reports that she presently feels anxious and would like to be given her medication now. Patient offers no other medical complaints. 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,NO Past Medical History Reviewed: Historical Data, Nursing Documentation, Vital Signs - Medical History PMH: Anxiety, Arthritis, Bipolar Disorder, Depression, Diabetes, HTN, Hypercholesterolemia, Hyperthyroidism, Hypothyroidism, Schizophrenia Denies: Hepatitis, HIV, Chronic Kidney Disease, Seizures, Sexually Transmitted Disease - Surgical History Surgical History: Cholecystectomy, Hernia Repair (umbilical hernia repair) - Family History Family History: States: Unknown Family Hx - Social History Current smoker - smoking cessation education provided: No Ex-Smoker (has not smoked in the last 12 months): No Alcohol: None Drugs: Denies - Immunization History Hx Tetanus Toxoid Vaccination: Yes Hx Influenza Vaccination: Yes Hx Pneumococcal Vaccination: Yes - Home Medications Home Medications: Ambulatory Orders Medication Instructions Recorded Haloperidol [Haldol] 5 mg PO BID #60 tab 10/18/16 Levothyroxine [Synthroid] 88 mcg PO DAILY@0630 #30 tab 10/18/16 [place] Carbonate [[place] 300 mg PO TID #45 cap 10/18/16 Carbonate 300MG] traZODone [Desyrel] 50 mg PO HS PRN #30 tab 10/18/16 Losartan [Cozaar] 50 mg PO DAILY #30 tab 01/19/17 Benztropine [Cogentin] 1 mg PO BID #60 tab 03/18/17 Haloperidol [Haldol] 10 mg PO BID #60 tab 03/18/17 Levothyroxine [Synthroid] 88 mcg PO DAILY@0630 #30 tab 03/18/17 [place] Carbonate [[place] 300 mg PO DAILY #30 cap 03/18/17 Carbonate 300MG] [place] Carbonate [[place] 600 mg PO QPM #30 cap 03/18/17 Carbonate 300MG] hydrOXYzine HCl [Atarax] 25 mg PO TID #90 tab 03/18/17 metFORMIN [glucOPHAGE] 500 mg PO BID #60 tab 03/18/17 traZODone [Desyrel] 100 mg PO HS PRN #30 tab 03/18/17 - Allergies Allergies/Adverse Reactions: Allergies Allergy/AdvReac Type Severity Reaction Status Date / Time tomato Allergy RASH Verified 04/11/17 17:25 Review of Systems Constitutional: Negative for: Fever, Chills Gastrointestinal: Negative for: Abdominal Pain Physical Exam - Reviewed Nursing Documentation Reviewed: Yes Vital Signs Reviewed: Yes - Physical Exam Appears: Positive for: Non-toxic, No Acute Distress Head Exam: Positive for: ATRAUMATIC, NORMAL INSPECTION, NORMOCEPHALIC Skin: Positive for: Normal Color, Warm, Dry. Negative for: Rash Eye Exam: Positive for: Normal appearance, EOMI, PERRL. Negative for: Nystagmus ENT: Positive for: Normal ENT Inspection. Negative for: Nasal Congestion, Tonsillar Exudate Neck: Positive for: Normal, Painless ROM, Supple Cardiovascular/Chest: Positive for: Regular Rate, Rhythm. Negative for: Tachycardia Respiratory: Positive for: Normal Breath Sounds. Negative for: Wheezing, Respiratory Distress Gastrointestinal/Abdominal: Positive for: Normal Exam, Bowel Sounds, Soft. Negative for: Guarding Back: Positive for: Normal Inspection. Negative for: L CVA Tenderness, R CVA Tenderness Extremity: Positive for: Normal ROM. Negative for: Tenderness, Deformity, Swelling Neurologic/Psych: Positive for: Alert, Oriented - Progress ED Course And Treament: seen by crisis d/c home as per Dr. Morrison. diagnosis schizoaffective disorder Patient to f/u outpatient tomorrow for medication Medical Decision Making Medical Decision Makin Initial Impression 56 y/o female presenting for medication Initial Plan: * Accucheck * Reevaluation Documented by Viky Khalil acting as a scribe for Zana Nicole PA-C. All medical record entries made by the Scribe were at my direction and personally dictated by me. I have reviewed the chart and agree that the record accurately reflects my personal performance of the history, physical exam, medical decision making, and the department course for this patient. I have also personally directed, reviewed, and agree with the discharge instructions and disposition. Disposition - Clinical Impression Clinical Impression: Schizoaffective disorder - Patient ED Disposition Is Patient to be Admitted: No - Disposition Disposition: Routine/Home Disposition Time: 21:00 Condition: FAIR Instructions: Schizoaffective Disorder (ED) Forms: [employer] (Hebrew)
== END 2017-04-11 21:30 | disposition home or self-care (01) ==
LOC: H.ER 17:21
DX: F25.9 Schizoaffective disorder, unspecified (principal); E11.9 Type 2 diabetes mellitus without complications; Z79.84 Long term (current) use of oral hypoglycemic drugs

== ENCOUNTER 2017-04-22 17:46 | Emergency (ER) | payer MEDICAID, MEDICARE ==
[2017-04-22 17:57] VITALS: PULSE 75; RESP 16; TEMP 98.8; O2SAT 98
--- NOTE | 2017-04-22 18:20 | ED PDOC ---
HPI: Psych/Substance Abuse Chief Complaint (Nursing): Psychiatric Evaluation Chief Complaint (Provider): Psychiatric Evaluation History Per: Patient Current Symptoms Are (Timing): Still Present Additional Complaint(s): 56 y/o female with past medical history of schizophrenia presents to the ED for psychiatric evaluation. Patient states that she hasn't slept properly since 4 nights but has been compliant with medications. Denies suicidal ideation or any further medical complaints. PMD: Delilah Chang MD Past Medical History Reviewed: Historical Data, Nursing Documentation, Vital Signs Vital Signs: Last Vital Signs Temp 98.8 F 04/22/17 17:50 Pulse 75 04/22/17 17:50 Resp 16 04/22/17 17:50 BP Pulse Ox 98 04/22/17 17:50 - Medical History PMH: Anxiety, Arthritis, Bipolar Disorder, Depression, Diabetes, HTN, Hypercholesterolemia, Hyperthyroidism, Hypothyroidism, Schizophrenia Denies: Hepatitis, HIV, Chronic Kidney Disease, Seizures, Sexually Transmitted Disease - Surgical History Surgical History: Cholecystectomy, Hernia Repair (umbilical hernia repair) - Family History Family History: States: Unknown Family Hx - Social History Current smoker - smoking cessation education provided: No Alcohol: None Drugs: Denies - Immunization History Hx Tetanus Toxoid Vaccination: Yes Hx Influenza Vaccination: Yes Hx Pneumococcal Vaccination: Yes - Home Medications Home Medications: Ambulatory Orders Medication Instructions Recorded Haloperidol [Haldol] 5 mg PO BID #60 tab 10/18/16 Levothyroxine [Synthroid] 88 mcg PO DAILY@0630 #30 tab 10/18/16 [place] Carbonate [[place] 300 mg PO TID #45 cap 10/18/16 Carbonate 300MG] traZODone [Desyrel] 50 mg PO HS PRN #30 tab 10/18/16 Losartan [Cozaar] 50 mg PO DAILY #30 tab 01/19/17 Benztropine [Cogentin] 1 mg PO BID #60 tab 03/18/17 Haloperidol [Haldol] 10 mg PO BID #60 tab 03/18/17 Levothyroxine [Synthroid] 88 mcg PO DAILY@0630 #30 tab 03/18/17 [place] Carbonate [[place] 300 mg PO DAILY #30 cap 03/18/17 Carbonate 300MG] [place] Carbonate [[place] 600 mg PO QPM #30 cap 03/18/17 Carbonate 300MG] hydrOXYzine HCl [Atarax] 25 mg PO TID #90 tab 03/18/17 metFORMIN [glucOPHAGE] 500 mg PO BID #60 tab 03/18/17 traZODone [Desyrel] 100 mg PO HS PRN #30 tab 03/18/17 - Allergies Allergies/Adverse Reactions: Allergies Allergy/AdvReac Type Severity Reaction Status Date / Time tomato Allergy RASH Verified 04/22/17 17:50 Review of Systems ROS Statement: Except As Marked, All Systems Reviewed And Found Negative (As per HPI, otherwise negative) Psych: Positive for: Other (Psychiatric evaluation). Negative for: Suicidal ideation Physical Exam - Reviewed Nursing Documentation Reviewed: Yes Vital Signs Reviewed: Yes - Physical Exam Appears: Positive for: Well, Non-toxic Head Exam: Positive for: ATRAUMATIC, NORMAL INSPECTION, NORMOCEPHALIC Skin: Positive for: Normal Color, Warm, Dry Eye Exam: Positive for: Normal appearance ENT: Positive for: Normal ENT Inspection Neck: Positive for: Normal, Supple Cardiovascular/Chest: Positive for: Regular Rate, Rhythm. Negative for: Murmur Respiratory: Positive for: Normal Breath Sounds. Negative for: Accessory Muscle Use, Respiratory Distress Gastrointestinal/Abdominal: Positive for: Normal Exam Back: Positive for: Normal Inspection Extremity: Positive for: Normal ROM. Negative for: Deformity Neurologic/Psych: Positive for: Alert, Oriented (tangantially oriented ( Patient is responding in japanese to Upper Sorbian questions)) - ECG O2 Sat by Pulse Oximetry: 98 (RA) Pulse Ox Interpretation: Normal - Progress ED Course And Treament: SEEN BY CRISIS CLEARED FOR D/C HOME BY DR. SCHWARZ. DIAGNOSIS SCHIZOPHRENIA Medical Decision Making Medical Decision Making: Time: 18:23 Crisis spoke to the patient and found out patient has not picked up medications because of snow. Scribe Attestation: Documented by Sydnie Nicole acting as a scribe for PA. ISABELLA Acosta Scribe Attestation: All medical record entries made by the Scribe were at my direction and personally dictated by me. I have reviewed the chart and agree that the record accurately reflects my personal performance of the history, physical exam, medical decision making, and the department course for this patient. I have also personally directed, reviewed, and agree with the discharge instructions and disposition. Disposition - Clinical Impression Clinical Impression: Schizophrenia - Patient ED Disposition Is Patient to be Admitted: No - Disposition Disposition: Routine/Home Disposition Time: 18:31 Condition: FAIR Instructions: Schizophrenia (ED) Forms: [facility] (Upper Sorbian) Print Language: MALAYSIAN
== END 2017-04-22 18:46 | disposition home or self-care (01) ==
LOC: H.ER 17:46
DX: F20.9 Schizophrenia, unspecified (principal); E03.9 Hypothyroidism, unspecified; E05.90 Thyrotoxicosis, unspecified without thyrotoxic crisis or storm; E11.9 Type 2 diabetes mellitus without complications; E78.00 Pure hypercholesterolemia, unspecified; F31.9 Bipolar disorder, unspecified; F41.9 Anxiety disorder, unspecified; I10 Essential (primary) hypertension; Z79.84 Long term (current) use of oral hypoglycemic drugs

== ENCOUNTER 2017-04-23 11:09 | Emergency (ER) | payer MEDICARE ==
[2017-04-23 11:24] VITALS: RESP 18; TEMP 97
[2017-04-23 12:30] VITALS: BP 167/69; O2SAT 99
--- NOTE | 2017-04-23 12:47 | ED PDOC ---
HPI: General Adult Time Seen by Provider: 04/23/17 11:29 Chief Complaint (Nursing): Psychiatric Evaluation History Per: Patient, EMS Additional Complaint(s): As per EMS bystanders saw pt. was crying and they brought pt. to ED as she was sad as she is going to be evicted from her home. 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 Pt. offers no complaints in ED. Requesting "blistex lip balm" and food. Denies chest pain, SOB, palpitations, fever, SI/HI, hallucinations. Past Medical History Reviewed: Historical Data, Nursing Documentation, Vital Signs Vital Signs: Last Vital Signs Temp 97 F L 04/23/17 11:20 Pulse 76 04/23/17 12:49 Resp 18 04/23/17 12:30 BP 167/69 H 04/23/17 12:30 Pulse Ox 99 04/23/17 12:49 - Medical History PMH: Anxiety, Arthritis, Bipolar Disorder, Depression, Diabetes, HTN, Hypercholesterolemia, Hyperthyroidism, Hypothyroidism, Schizophrenia Denies: Hepatitis, HIV, Chronic Kidney Disease, Seizures, Sexually Transmitted Disease - Surgical History Surgical History: Cholecystectomy, Hernia Repair (umbilical hernia repair) - Family History Family History: States: No Known Family Hx - Immunization History Hx Tetanus Toxoid Vaccination: Yes Hx Influenza Vaccination: Yes Hx Pneumococcal Vaccination: Yes - Home Medications Home Medications: Ambulatory Orders Medication Instructions Recorded Haloperidol [Haldol] 5 mg PO BID #60 tab 10/18/16 Levothyroxine [Synthroid] 88 mcg PO DAILY@0630 #30 tab 10/18/16 [place] Carbonate [[place] 300 mg PO TID #45 cap 10/18/16 Carbonate 300MG] traZODone [Desyrel] 50 mg PO HS PRN #30 tab 10/18/16 Losartan [Cozaar] 50 mg PO DAILY #30 tab 01/19/17 Benztropine [Cogentin] 1 mg PO BID #60 tab 03/18/17 Haloperidol [Haldol] 10 mg PO BID #60 tab 03/18/17 Levothyroxine [Synthroid] 88 mcg PO DAILY@0630 #30 tab 03/18/17 [place] Carbonate [[place] 300 mg PO DAILY #30 cap 03/18/17 Carbonate 300MG] [place] Carbonate [[place] 600 mg PO QPM #30 cap 03/18/17 Carbonate 300MG] hydrOXYzine HCl [Atarax] 25 mg PO TID #90 tab 03/18/17 metFORMIN [glucOPHAGE] 500 mg PO BID #60 tab 03/18/17 traZODone [Desyrel] 100 mg PO HS PRN #30 tab 03/18/17 - Allergies Allergies/Adverse Reactions: Allergies Allergy/AdvReac Type Severity Reaction Status Date / Time tomato Allergy RASH Verified 04/23/17 11:14 Review of Systems ROS Statement: Except As Marked, All Systems Reviewed And Found Negative Physical Exam - Reviewed Nursing Documentation Reviewed: Yes Vital Signs Reviewed: Yes - Physical Exam Appears: Positive for: Well, Non-toxic, No Acute Distress Head Exam: Positive for: ATRAUMATIC, NORMAL INSPECTION, NORMOCEPHALIC Skin: Positive for: Normal Color, Warm. Negative for: Rash Eye Exam: Positive for: EOMI, Normal appearance, PERRL ENT: Positive for: Normal ENT Inspection Neck: Positive for: Normal, Painless ROM Cardiovascular/Chest: Positive for: Regular Rate, Rhythm Respiratory: Positive for: CNT, Normal Breath Sounds Gastrointestinal/Abdominal: Positive for: Normal Exam, Bowel Sounds, Soft. Negative for: Tenderness Back: Positive for: Normal Inspection Extremity: Positive for: Normal ROM Neurologic/Psych: Positive for: Alert, Oriented, Mood/Affect (calm, cooperative) . Negative for: Aphasia, Facial Droop - ECG ECG: Positive for: Interpreted By Me ECG Rhythm: Positive for: Sinus Rhythm. Negative for: ST/T Changes Rate: 76 O2 Sat by Pulse Oximetry: 99 - Progress ED Course And Treament: Repeat BP: 167/69 Disposition - Clinical Impression Clinical Impression: Anxiety - Patient ED Disposition Is Patient to be Admitted: No - Disposition Disposition: Routine/Home Disposition Time: 12:30 Condition: STABLE Instructions: Anxiety (ED) Forms: [facility] (Occitan) Print Language: MARSHALLESE
[2017-04-23 12:49] VITALS: PULSE 76
[2017-04-23 19:44] LABS: BASO # 0.1 K/uL (0.0-0.2); BASO % 1.3 % (0.0-2.0); EOS # 0.1 K/uL (0.0-0.7); EOS % 1.7 % (0.0-4.0); HEMOGLOBIN 14.3 g/dL (12.0-16.0); MEAN CELL VOLUME 94.9 fl (81.0-99.0); MEAN CORPUSCULAR HGB CONC 32.7 g/dL (33.0-37.0); MEAN PLATELET VOLUME 7.3 fl (7.2-11.7); MONO # 0.5 K/uL (0.0-0.8); MONO % 9.3 % (0.0-10.0); NEUT # 2.3 K/uL (1.8-7.0); NEUT % 46.7 % (50.0-75.0); NRBC % 0.3 % (0.0-0.0); RBC 4.6 Mil/uL (3.80-5.20); RED CELL DISTRIBUTION WIDTH 14.1 % (11.5-14.5); WHITE BLOOD COUNT 4.9 K/uL (4.8-10.8)
[2017-04-23 20:10] LABS: ALB/GLOB RATIO 1.2 (1.0-2.1); ALBUMIN 4.4 g/dL (3.5-5.0); ALT/SGPT 86 U/L (9-52); AST/SGOT 136 U/L (14-36); BLOOD UREA NITROGEN 11 mg/dl (7-17); CALCIUM 9.2 mg/dL (8.4-10.2); GFR AFRICAN-AMERICAN > 60; GFR NON-AFRICAN AMERICAN > 60
--- NOTE | 2017-04-24 08:32 | CARD ---
APPROVED REPORT EKG Measurement Heart [id number] NM [id number] <Conclusion> Normal sinus rhythm Minimal voltage criteria for LVH, may be normal variant Borderline ECG
== END 2017-04-23 13:43 | disposition home or self-care (01) ==
LOC: H.ER 11:09
DX: F41.9 Anxiety disorder, unspecified (principal); E11.9 Type 2 diabetes mellitus without complications; Z86.59 Personal history of other mental and behavioral disorders; I10 Essential (primary) hypertension; E05.90 Thyrotoxicosis, unspecified without thyrotoxic crisis or storm; Z79.84 Long term (current) use of oral hypoglycemic drugs; E78.00 Pure hypercholesterolemia, unspecified
CPT/HCPCS: 80053; 84484; 85025; 93005; 99282; G0480

== ENCOUNTER 2017-06-12 00:29 | Emergency (ER) | payer MEDICAID, MEDICARE ==
[2017-06-12 00:57] VITALS: BP 171/94; PULSE 76; RESP 17; TEMP 98.7; O2SAT 100
--- NOTE | 2017-06-12 07:50 | ED PDOC ---
HPI: General Adult Time Seen by Provider: 06/12/17 00:59 Chief Complaint (Nursing): Psychiatric Evaluation History Per: Patient History/Exam Limitations: no limitations Onset/Duration Of Symptoms: Mins Additional Complaint(s): well known to ER, pt c/o of L knee pain after falling while taking out garbage. ems noticed her to have bizarre behavior, but upon arrival to ed, patient is at baseline. states she tripped while trying to lift up garbage. no head injury. no si/hi. Past Medical History Reviewed: Historical Data, Nursing Documentation, Vital Signs Vital Signs: Last Vital Signs Temp 98.7 F 06/12/17 00:54 Pulse 76 06/12/17 00:54 Resp 17 06/12/17 00:54 BP 171/94 H 06/12/17 00:54 Pulse Ox 100 06/12/17 00:54 - Medical History PMH: Anxiety, Arthritis, Bipolar Disorder, Depression, Diabetes, HTN, Hypercholesterolemia, Hyperthyroidism, Hypothyroidism, Schizophrenia Denies: Hepatitis, HIV, Chronic Kidney Disease, Seizures, Sexually Transmitted Disease - Surgical History Surgical History: Cholecystectomy, Hernia Repair (umbilical hernia repair) - Family History Family History: States: Unknown Family Hx - Immunization History Hx Tetanus Toxoid Vaccination: Yes Hx Influenza Vaccination: Yes Hx Pneumococcal Vaccination: Yes - Home Medications Home Medications: Ambulatory Orders Medication Instructions Recorded Haloperidol [Haldol] 5 mg PO BID #60 tab 10/18/16 Levothyroxine [Synthroid] 88 mcg PO DAILY@0630 #30 tab 10/18/16 [place] Carbonate [[place] 300 mg PO TID #45 cap 10/18/16 Carbonate 300MG] traZODone [Desyrel] 50 mg PO HS PRN #30 tab 10/18/16 Losartan [Cozaar] 50 mg PO DAILY #30 tab 01/19/17 Benztropine [Cogentin] 1 mg PO BID #60 tab 03/18/17 Haloperidol [Haldol] 10 mg PO BID #60 tab 03/18/17 Levothyroxine [Synthroid] 88 mcg PO DAILY@0630 #30 tab 03/18/17 [place] Carbonate [[place] 300 mg PO DAILY #30 cap 03/18/17 Carbonate 300MG] [place] Carbonate [[place] 600 mg PO QPM #30 cap 03/18/17 Carbonate 300MG] hydrOXYzine HCl [Atarax] 25 mg PO TID #90 tab 03/18/17 metFORMIN [glucOPHAGE] 500 mg PO BID #60 tab 03/18/17 traZODone [Desyrel] 100 mg PO HS PRN #30 tab 03/18/17 - Allergies Allergies/Adverse Reactions: Allergies Allergy/AdvReac Type Severity Reaction Status Date / Time tomato Allergy RASH Verified 06/12/17 00:57 Review of Systems ROS Statement: Except As Marked, All Systems Reviewed And Found Negative Musculoskeletal: Positive for: Other (Knee pain) Physical Exam - Reviewed Nursing Documentation Reviewed: Yes Vital Signs Reviewed: Yes - Physical Exam Appears: Positive for: Well, Non-toxic, No Acute Distress Head Exam: Positive for: ATRAUMATIC, NORMAL INSPECTION, NORMOCEPHALIC Skin: Positive for: Normal Color, Warm, DRY Eye Exam: Positive for: EOMI, Normal appearance, PERRL ENT: Positive for: Normal ENT Inspection Neck: Positive for: Normal, Painless ROM Cardiovascular/Chest: Positive for: Regular Rate, Rhythm Respiratory: Positive for: CNT, Normal Breath Sounds Gastrointestinal/Abdominal: Positive for: Normal Exam, Bowel Sounds, Soft Back: Positive for: Normal Inspection Extremity: Positive for: Normal ROM, Tenderness (mild tenderness to anterior L knee, abrasions, FROM, distal NV intact, 2+ Distal pulses), Capillary Refill. Negative for: Calf Tenderness, Deformity, Swelling Neurologic/Psych: Positive for: Alert, Oriented - ECG O2 Sat by Pulse Oximetry: 100 Medical Decision Making Medical Decision Making: Pt. w/ contusion Xray neg Advised to f/u as outpatient Return precautions discussed Disposition - Clinical Impression Clinical Impression: Knee contusion - Disposition Referrals: Delilah Chang MD [Staff Provider] - Disposition: Routine/Home Disposition Time: 02:00 Condition: STABLE Instructions: Contusion (DC) Forms: [employer] (Wallisian) Print Language: AZERI
--- NOTE | 2017-06-12 09:31 | RAD ---
PROCEDURE: Left Knee Radiographs. HISTORY: Pain. COMPARISON: Knee radiographs dated 10/01/2015. FINDINGS: BONES: No acute fracture. JOINTS: Unremarkable. JOINT EFFUSION: None. OTHER FINDINGS: None. IMPRESSION: No demonstrated fracture or dislocation.
== END 2017-06-12 03:30 | disposition home or self-care (01) ==
LOC: H.ER 00:29
DX: S80.02XA Contusion of left knee, initial encounter (principal); Z00.8 Encounter for other general examination; Z86.59 Personal history of other mental and behavioral disorders; E11.9 Type 2 diabetes mellitus without complications; I10 Essential (primary) hypertension; Z79.84 Long term (current) use of oral hypoglycemic drugs; E03.9 Hypothyroidism, unspecified

== ENCOUNTER 2017-06-14 01:01 | Emergency (ER) | payer MEDICARE, MEDICAID ==
--- NOTE | 2017-06-14 01:58 | ED PDOC ---
Lower Extremity Pain/Injury Time Seen by Provider: 06/14/17 01:25 Chief Complaint (Nursing): Lower Extremity Problem/Injury Chief Complaint (Provider): toe pain History Per: Patient History/Exam Limitations: no limitations Onset/Duration Of Symptoms: Days (3) Current Symptoms Are (Timing): Still Present Additional Complaint(s): 57 y/o female presents for evaluation of bilateral great toe pain x 3 days. Patient states she tripped while taking out the garbage. Pain worse with movement. Denies fever, numbness/weakness of extremities, limitation of movement. Past Medical History Reviewed: Historical Data, Nursing Documentation, Vital Signs Vital Signs: Last Vital Signs Temp 98 F 06/14/17 01:23 Pulse 59 L 06/14/17 01:23 Resp 18 06/14/17 01:23 BP 177/84 H 06/14/17 01:23 Pulse Ox 99 06/14/17 01:23 - Medical History PMH: Anxiety, Arthritis, Bipolar Disorder, Depression, Diabetes, HTN, Hypercholesterolemia, Hyperthyroidism, Hypothyroidism, Schizophrenia Denies: Hepatitis, HIV, Chronic Kidney Disease, Seizures, Sexually Transmitted Disease - Surgical History Surgical History: Cholecystectomy, Hernia Repair (umbilical hernia repair) - Family History Family History: States: Unknown Family Hx - Immunization History Hx Tetanus Toxoid Vaccination: Yes Hx Influenza Vaccination: Yes Hx Pneumococcal Vaccination: Yes - Home Medications Home Medications: Ambulatory Orders Medication Instructions Recorded Haloperidol [Haldol] 5 mg PO BID #60 tab 10/18/16 Levothyroxine [Synthroid] 88 mcg PO DAILY@0630 #30 tab 10/18/16 [place] Carbonate [[place] 300 mg PO TID #45 cap 10/18/16 Carbonate 300MG] traZODone [Desyrel] 50 mg PO HS PRN #30 tab 10/18/16 Losartan [Cozaar] 50 mg PO DAILY #30 tab 01/19/17 Benztropine [Cogentin] 1 mg PO BID #60 tab 03/18/17 Haloperidol [Haldol] 10 mg PO BID #60 tab 03/18/17 Levothyroxine [Synthroid] 88 mcg PO DAILY@0630 #30 tab 03/18/17 [place] Carbonate [[place] 300 mg PO DAILY #30 cap 03/18/17 Carbonate 300MG] [place] Carbonate [[place] 600 mg PO QPM #30 cap 03/18/17 Carbonate 300MG] hydrOXYzine HCl [Atarax] 25 mg PO TID #90 tab 03/18/17 metFORMIN [glucOPHAGE] 500 mg PO BID #60 tab 03/18/17 traZODone [Desyrel] 100 mg PO HS PRN #30 tab 03/18/17 - Allergies Allergies/Adverse Reactions: Allergies Allergy/AdvReac Type Severity Reaction Status Date / Time tomato Allergy RASH Verified 06/12/17 00:57 Review of Systems ROS Statement: Except As Marked, All Systems Reviewed And Found Negative Musculoskeletal: Positive for: Foot Pain (bilateral great toe) Physical Exam - Reviewed Nursing Documentation Reviewed: Yes Vital Signs Reviewed: Yes - Physical Exam Appears: Positive for: Well, Non-toxic, No Acute Distress Pulses-Dorsalis Pedis (L): 2+ Pulses-Dorsalis Pedis (R): 2+ Pulses-Post. Tibialis (L): 2+ Pulses-Post. Tibialis (R): 2+ Extremity: Positive for: Normal ROM, Swelling (swelling/ecchymosis left great toe with tender to palpate; nail intact. Right great toe tender to palpate DIP ; no swelling, ecchymosis. FROM. Distal NV, motor intact) Neurologic/Psych: Positive for: Alert, Oriented. Negative for: Motor/Sensory Deficits - ECG O2 Sat by Pulse Oximetry: 99 - Other Rad bilateral foot xray X-Ray: Viewed By Mt X-Ray Interpretation: no acute findings - Progress ED Course And Treament: xray, tylenol Patient educated on findings, discharged with instructions to follow up podiatry. Advised RICE. Tylenol PRN pain. Return precautions given. Disposition - Clinical Impression Clinical Impression: Toe contusion - Patient ED Disposition Is Patient to be Admitted: No Counseled Patient/Family Regarding: Diagnosis, Need For Followup - Disposition Referrals: Delilah Chang MD [Primary Care Provider] - Podiatry Clinic [Outside] Disposition: Routine/Home Disposition Time: 02:47 Condition: STABLE Instructions: Toe Injury (DC), Contusion (DC) Print Language: SETSWANA
[2017-06-14 03:06] VITALS: BP 129/74; RESP 16; TEMP 98.2
[2017-06-14 03:09] VITALS: O2SAT 99
[2017-06-14 05:13] VITALS: PULSE 67
--- NOTE | 2017-06-14 11:45 | RAD ---
PROCEDURE: Bilateral Feet Radiographs. HISTORY: fall, bilateral great toe pain COMPARISON: None. FINDINGS: Diffuse osteopenia suggests osteoporosis. No acute displaced fracture identified. No destructive bone lesion appreciate. Bilateral hallux valgus deformities are identified. Joint space narrowing with cortical sclerosis is appreciate throughout the interphalangeal joints diffusely as well as the 1st metatarsophalangeal joints bilaterally. Lesser similar changes are seen throughout the remainder of the forefeet, midfeet and the hind feet joint spaces. OTHER FINDINGS: None. IMPRESSION: Bilateral hallux valgus deformities. Degenerative osteoarthritis bilaterally, relatively diffuse. No acute fracture, subluxation or dislocation. Diffuse osteopenia suggests osteoporosis.
== END 2017-06-14 05:14 | disposition home or self-care (01) ==
LOC: H.ER 01:01
DX: S90.112A Contusion of left great toe without damage to nail, initial encounter (principal); S90.111A Contusion of right great toe without damage to nail, initial encounter; W22.8XXA Striking against or struck by other objects, initial encounter; Y92.89 Other specified places as the place of occurrence of the external cause; E11.9 Type 2 diabetes mellitus without complications; Z79.84 Long term (current) use of oral hypoglycemic drugs

== ENCOUNTER 2017-06-19 16:39 | Emergency (ER) | payer MEDICARE, MEDICAID ==
[2017-06-19 16:44] VITALS: BP 140/80; PULSE 73; RESP 19; TEMP 98.4; O2SAT 98
--- NOTE | 2017-06-19 17:01 | ED PDOC ---
Lower Extremity Pain/Injury Time Seen by Provider: 06/19/17 16:48 Chief Complaint (Nursing): Lower Extremity Problem/Injury Chief Complaint (Provider): Left knee abrasion History Per: Patient History/Exam Limitations: no limitations Onset/Duration Of Symptoms: Days (3) Additional Complaint(s): 57 y/o female presents to ER for evaluation of left knee abrasion, sustained after she fell 4 days ago. Patient is able to ambulate without pain. She has no other complaints. Tetanus is up to date. Past Medical History Reviewed: Historical Data, Nursing Documentation, Vital Signs Vital Signs: Last Vital Signs Temp 98.4 F 06/19/17 16:42 Pulse 73 06/19/17 16:42 Resp 19 06/19/17 16:42 BP 140/80 06/19/17 16:42 Pulse Ox 98 06/19/17 16:42 - Medical History PMH: Anxiety, Arthritis, Bipolar Disorder, Depression, Diabetes, HTN, Hypercholesterolemia, Hypothyroidism, Schizophrenia - Surgical History Surgical History: Cholecystectomy, Hernia Repair (umbilical hernia repair) - Family History Family History: States: No Known Family Hx - Living Arrangements Living Arrangements: With Family - Social History Current smoker - smoking cessation education provided: No Alcohol: None Drugs: Denies - Immunization History Hx Tetanus Toxoid Vaccination: Yes - Home Medications Home Medications: Ambulatory Orders Medication Instructions Recorded Haloperidol [Haldol] 5 mg PO BID #60 tab 10/18/16 Levothyroxine [Synthroid] 88 mcg PO DAILY@0630 #30 tab 10/18/16 [place] Carbonate [[place] 300 mg PO TID #45 cap 10/18/16 Carbonate 300MG] traZODone [Desyrel] 50 mg PO HS PRN #30 tab 10/18/16 Losartan [Cozaar] 50 mg PO DAILY #30 tab 01/19/17 Benztropine [Cogentin] 1 mg PO BID #60 tab 03/18/17 Haloperidol [Haldol] 10 mg PO BID #60 tab 03/18/17 Levothyroxine [Synthroid] 88 mcg PO DAILY@0630 #30 tab 03/18/17 [place] Carbonate [[place] 300 mg PO DAILY #30 cap 03/18/17 Carbonate 300MG] [place] Carbonate [[place] 600 mg PO QPM #30 cap 03/18/17 Carbonate 300MG] hydrOXYzine HCl [Atarax] 25 mg PO TID #90 tab 03/18/17 metFORMIN [glucOPHAGE] 500 mg PO BID #60 tab 03/18/17 traZODone [Desyrel] 100 mg PO HS PRN #30 tab 03/18/17 - Allergies Allergies/Adverse Reactions: Allergies Allergy/AdvReac Type Severity Reaction Status Date / Time tomato Allergy RASH Verified 06/12/17 00:57 Wells Criteria for PE - Wells Criteria for Pulmonary Embolism Clinical Signs and Symptoms of DVT: No P.E is #1 Diagnosis, or Equally Likely: No Heart Rate >100: No Immobilization at least 3 days;Surgery previous 4 weeks: No Previous, objectively diagnosed PE or DVT: No Hemoptysis: No Malignancy w/treatment within 6 months, or palliative: No Total Score: 0 Review of Systems ROS Statement: Except As Marked, All Systems Reviewed And Found Negative Skin: Positive for: Other (abrasion to left knee) Physical Exam - Reviewed Nursing Documentation Reviewed: Yes Vital Signs Reviewed: Yes - Physical Exam Appears: Positive for: Non-toxic, No Acute Distress Head Exam: Positive for: ATRAUMATIC, NORMAL INSPECTION, NORMOCEPHALIC Skin: Positive for: Normal Color Extremity: Positive for: Normal ROM (normal ROM of left knee), Other (abrasion noted to patellar region of left knee, no active bleeding, N/V intact, no infection noted) Neurologic/Psych: Positive for: Alert, Oriented, Gait (steady) - ECG O2 Sat by Pulse Oximetry: 98 (RA) Pulse Ox Interpretation: Normal Medical Decision Making Medical Decision Making: Impression: Left knee abrasion, ambulatory with steady gait Plan: -- Patient declined XR's or pain medication and is requesting bacitracin and bandage to be placed on her knee, which was completed by RN. Advised clinic follow up prn. Scribe Attestation: Documented by Adilia Man acting as a scribe for TONI Fish Provider Attestation: All medical record entries made by the Scribe were at my direction and personally dictated by me. I have reviewed the chart and agree that the record accurately reflects my personal performance of the history, physical exam, medical decision making, and the department course for this patient. I have also personally directed, reviewed, and agree with the discharge instructions and disposition. Disposition - Clinical Impression Clinical Impression: Knee abrasion Counseled Patient/Family Regarding: Diagnosis, Need For Followup - Disposition Referrals: [facility] [Outside] Disposition: Routine/Home Disposition Time: 17:03 Condition: STABLE Additional Instructions: Follow up with clinic. Instructions: Skin Abrasions Forms: [employer] (Singaporean)
[2017-06-19] MEDS ORDERED: Bacitracin 500 Units/gm Oint Foilpak UD ONE (17:02)
== END 2017-06-19 18:04 | disposition home or self-care (01) ==
LOC: H.ER 16:39
DX: S80.212A Abrasion, left knee, initial encounter (principal); W19.XXXA Unspecified fall, initial encounter; Y92.89 Other specified places as the place of occurrence of the external cause; E03.9 Hypothyroidism, unspecified; E11.9 Type 2 diabetes mellitus without complications; E78.00 Pure hypercholesterolemia, unspecified; F20.9 Schizophrenia, unspecified; F31.9 Bipolar disorder, unspecified; F41.9 Anxiety disorder, unspecified; I10 Essential (primary) hypertension; Z79.84 Long term (current) use of oral hypoglycemic drugs

== ENCOUNTER 2017-08-01 12:09 | Inpatient (IN) | payer MEDICARE, MEDICAID ==
--- NOTE | 2017-08-01 13:47 | ED PDOC ---
HPI: Psych/Substance Abuse Time Seen by Provider: 08/01/17 12:31 Chief Complaint (Nursing): Anxiety Chief Complaint (Provider): Anxiety History Per: Patient History/Exam Limitations: no limitations Onset/Duration Of Symptoms: Hrs (today) Current Symptoms Are (Timing): Still Present Suicide/Self Injury Attempted (Context): None Associated Symptoms: denies: Suicidal Thoughts, Suicidal Plan Involuntary Hold By: None Additional Complaint(s): Tish Cooley is a 57 year old female, with a past medical history of HTN, diabetes, bipolar disorder, depression and schizophrenia , who was brought to the emergency department via EMS after feeling very "jurado" today. Patient states today is her mother's birthday, she tried to go to work but was unable due to moodiness. Patient reports she did take her cogentin, lithium and diabetic medications today. Patient also reports she does have hallucinations, she sees "Venkat Mouse" but it has been going on for several months and she currently doesn't have any hallucinations. She denies any suicidal or homicidal ideation. No further medical complaints. PMD: None provided. Past Medical History Reviewed: Historical Data, Nursing Documentation, Vital Signs Vital Signs: Last Vital Signs Temp 98.2 F 08/01/17 12:23 Pulse 79 08/01/17 12:23 Resp 16 08/01/17 12:23 BP 161/91 H 08/01/17 12:23 Pulse Ox 100 08/01/17 12:23 - Medical History PMH: Anxiety, Arthritis, Bipolar Disorder, Depression, Diabetes, HTN, Hypercholesterolemia, Hyperthyroidism, Hypothyroidism, Schizophrenia Denies: Hepatitis, HIV, Chronic Kidney Disease, Seizures, Sexually Transmitted Disease - Surgical History Surgical History: Cholecystectomy, Hernia Repair (umbilical hernia repair) - Family History Family History: States: Unknown Family Hx - Immunization History Hx Tetanus Toxoid Vaccination: Yes Hx Influenza Vaccination: Yes Hx Pneumococcal Vaccination: Yes - Home Medications Home Medications: Ambulatory Orders Medication Instructions Recorded Benztropine [Cogentin] 1 mg PO Q12 08/01/17 Haldol Decanoate 1 vial IM Q30D 08/01/17 Levothyroxine [Synthroid] 88 mcg PO DAILY 08/01/17 [place] Carbonate [[place] 300 mg PO Q8 08/01/17 Carbonate 300MG] Losartan [Cozaar] 50 mg PO DAILY 04/18/18 metFORMIN [glucOPHAGE] 500 mg PO BID 08/01/17 - Allergies Allergies/Adverse Reactions: Allergies Allergy/AdvReac Type Severity Reaction Status Date / Time tomato Allergy RASH Verified 08/01/17 12:22 Review of Systems ROS Statement: Except As Marked, All Systems Reviewed And Found Negative Psych: Positive for: Anxiety ("jurado" ). Negative for: Suicidal ideation (or homicidal ideation), Other (hallucinations) Physical Exam - Reviewed Nursing Documentation Reviewed: Yes Vital Signs Reviewed: Yes - Physical Exam Appears: Positive for: Well, Non-toxic, No Acute Distress Head Exam: Positive for: ATRAUMATIC, NORMAL INSPECTION, NORMOCEPHALIC Skin: Positive for: Normal Color, Warm, Dry Eye Exam: Positive for: Normal appearance, EOMI, PERRL Neck: Positive for: Painless ROM, Supple Cardiovascular/Chest: Positive for: Regular Rate, Rhythm. Negative for: Murmur Respiratory: Positive for: Normal Breath Sounds. Negative for: Respiratory Distress Gastrointestinal/Abdominal: Positive for: Normal Exam, Soft. Negative for: Tenderness Extremity: Positive for: Normal ROM (upper and lower extremities). Negative for : Deformity, Swelling Neurologic/Psych: Positive for: Alert, Oriented, Mood/Affect (labile but easily distractable and is at times cheerful and happy). Negative for: Motor/Sensory Deficits - Laboratory Results Result Diagrams: 08/01/17 15:32 08/01/17 15:32 - ECG ECG: Positive for: Interpreted By Me ECG Rhythm: Positive for: Sinus Bradycardia. Negative for: ST/T Changes Rate: 57 O2 Sat by Pulse Oximetry: 100 (RA) Pulse Ox Interpretation: Normal Medical Decision Making Medical Decision Making: Initial Impression: Psychiatric evaluation Initial Plan: --EKG --Alcohol serum --CMP --Drug screen, urine --Crisis evaluation as ordered --CBC w/ differential --Chest portable [RAD] --1:1 Observation --Urinalysis --Reevaluation 13:35 -Patient was evaluated by Mirna, overhead worker, who spoke with Dr. Landaverde and requested patient to be admitted. 14:54 CXR FINDINGS: LUNGS: The lungs are clear. PLEURA: No significant pleural effusion identified, no pneumothorax apparent. CARDIOVASCULAR: Normal. OSSEOUS STRUCTURES: No significant abnormalities. VISUALIZED UPPER ABDOMEN: Normal. OTHER FINDINGS: None. IMPRESSION: No active pulmonary disease. ~ Scribe Attestation: Documented by Дмитрий Dominguez, acting as a scribe for Michael Alvarez PA-C. Provider Scribe Attestation: All medical record entries made by the Scribe were at my direction and personally dictated by me. I have reviewed the chart and agree that the record accurately reflects my personal performance of the history, physical exam, medical decision making, and the department course for this patient. I have also personally directed, reviewed, and agree with the discharge instructions and disposition. Disposition - Clinical Impression Clinical Impression: Paranoid schizophrenia - Patient ED Disposition Is Patient to be Admitted: Yes - Disposition Disposition Time: 18:00 Condition: STABLE
--- NOTE | 2017-08-01 14:56 | RAD ---
HISTORY: clearance COMPARISON: 03/18/2017. FINDINGS: LUNGS: The lungs are clear. PLEURA: No significant pleural effusion identified, no pneumothorax apparent. CARDIOVASCULAR: Normal. OSSEOUS STRUCTURES: No significant abnormalities. VISUALIZED UPPER ABDOMEN: Normal. OTHER FINDINGS: None. IMPRESSION: No active pulmonary disease.
[2017-08-01 15:38] LABS: BASO % 0.4 % (0.0-2.0); EOS # 0.2 K/uL (0.0-0.7); EOS % 2.4 % (0.0-4.0); HEMOGLOBIN 13.5 g/dL (12.0-16.0); LYMPH # 2.5 K/uL (1.0-4.3); LYMPH % 24.9 % (20.0-40.0); MEAN CELL VOLUME 93.5 fl (81.0-99.0); MEAN CORPUSCULAR HEMOGLOBIN 31.4 pg (27.0-31.0); MEAN CORPUSCULAR HGB CONC 33.6 g/dL (33.0-37.0); MEAN PLATELET VOLUME 7.2 fl (7.2-11.7); MONO # 0.4 K/uL (0.0-0.8); MONO % 4.1 % (0.0-10.0); NEUT # 6.8 K/uL (1.8-7.0); NEUT % 68.2 % (50.0-75.0); RBC 4.3 Mil/uL (3.80-5.20); RED CELL DISTRIBUTION WIDTH 14.8 % (11.5-14.5)
[2017-08-01 15:50] LABS: ALB/GLOB RATIO 1.1 (1.0-2.1); ALBUMIN 4.4 g/dL (3.5-5.0); ALT/SGPT 47 U/L (9-52); AST/SGOT 28 U/L (14-36); BLOOD UREA NITROGEN 14 mg/dl (7-17); CALCIUM 10.1 mg/dL (8.4-10.2); GFR AFRICAN-AMERICAN > 60; GFR NON-AFRICAN AMERICAN > 60
[2017-08-01 17:10] LABS: URINE BACTERIA RARE (<OCC); URINE BILIRUBIN NEGATIVE (NEGATIVE); URINE BLOOD NEGATIVE (NEGATIVE); URINE CLARITY CLEAR (Clear); URINE COLOR COLORLESS (YELLOW); URINE GLUCOSE (UA) NEG (Normal); URINE LEUKOCYTE ESTERASE NEG Leu/uL (Negative); URINE PROTEIN NEGATIVE (NEGATIVE); URINE UROBILINOGEN 0.2-1.0 mg/dL (0.2-1.0)
[2017-08-01 17:25] LABS: BARBITURATES, UR NEGATIVE (NEGATIVE); BENZODIAZEPINES, UR NEGATIVE (NEGATIVE); OPIATES, UR NEGATIVE (NEGATIVE); PHENCYCLIDINE, UR NEGATIVE (NEGATIVE)
[2017-08-01 21:21] VITALS: O2SAT 100
[2017-08-01] MEDS ORDERED: Magnesium Hydroxide Susp 30 ml UD PO PRN (21:23)
[2017-08-01] MEDS ORDERED: DiphenhydrAMINE 50 mg/ml Inj IM PRN (21:23)
[2017-08-01] MEDS ORDERED: Alum-Mag Hydrox-Simethicone Susp (30 mL) PO PRN (21:23)
[2017-08-01 22:22] VITALS: RESP 18
--- NOTE | 2017-08-01 22:44 | PCM.BM ---
<Marquez Fry P - Last Filed: 08/01/17 22:43> Treatment Plan Problems - Problems identified on initial assessmt Hopelessness/Helplessness Date Initiated: 08/01/17 (n) Assessment reference: NA Status: Active Altered Sleep Patterns Date Initiated: 08/01/17 Time Initiated: 22:44 Assessment reference: NA Status: Active Treatment assets and liabiliti Patient Assests: cooperative, self-reliant, ADL independent, negotiates basic needs Patient Liabilities: financial problems, medical problems, language/speech - Milieu Protocol Maintain good personal hygiene: daily Encourage regular showers, daily Remind patient to perform daily oral care, daily Assist patient to perform ADL's Conduct patient checks and document Observation sheet: Q15 minutes Maintain personal safety: every shift Educate patient to report safety concerns to staff, every shift Monitor environment for contraband/sharps Medication safety: Monitor for expected outcome, potential side effects: every shift, Assess barriers to learning: every shift, Assess readiness for medication education: every shift <Shelley Dawn - Last Filed: 08/02/17 15:12> Treatment assets and liabiliti Patient Assests: adapts well, cooperative, resourceful, self-reliant, ADL independent, physically healthy, good support system (limited supports but has loving/supportive relationship with son), cognitively intact Patient Liabilities: financial problems, medical problems, language/speech ( primary bermudian speaking), other (limited insight/hx of noncompliance) Family Contact Family involvement: Family/SO is involved Family contact: Patient agrees to contact, Family has been contacted by patient , Telephone contact initiated by staff Family contact name: Kristopher(son) ([phone]) Family contacted how many times per week?: 2 Family contact comment: Office Engineer placed call to patients son (Kristopher [phone]) to discuss precursors to pts hospitalization and colllect further collateral. Office Engineer left brief message on unidentified voicemail and is awating response. - Outside Agency Agency 1 Care involvment: Following patient during stay, Information-sharing Agency contact name: [facility] Agency contact number: ([phone]) - Goals for Treatment Patient goals for treatment: Patient to continue stabilization on 3NP through medication management and group/supportive therapy. Patient to be encouraged to attend groups regularly to promote self-awareness, compliance and improve insight, organization of thoughts, coping skills and self-esteem. Patient to be provided with referral for appropriate level of aftercare to reduce risk of future hospitalizations and ensure safety in the community. Discharge/Continuing Care - Education Needs Education Needs: Family Medication, Family Coping Skills, Family Community resources, Family Aftercare Safety Plan, Patient Medication, Patient Coping Skills, Patient Community resources, Patient Aftercare Safety Plan - Discharge Discharge Criteria: Tolerates medication w/o severe side effects, Free of Suicidal thoughts, Normal sleep pattern, Ability to care for self, Reduction of target symptoms Discharge to:: Home, With Family, Other ([facility]) <Zaki Madden - Last Filed: 08/03/17 13:58> Discharge/Continuing Care - Additional Comments 08/03/17 13:58 Pt is requesting to leave on Sunday. Dr. Landaverde expressed that she would draw a [employer] level on Sunday and reevaluate pt on Sunday for discharge rediness. - Treatment Team Participation Discussed with Family/SO: No Was Patient/Family/SO present at Treatment Team Meeting: Yes <Davion Landaverde - Last Filed: 08/06/17 12:37> - Diagnosis (1) Depression Status: Acute Interventions: 08/06/17 12:36 psychotherapy , pharmacotherapy
[2017-08-02] MEDS: Levothyroxine 88 MCG TAB PO SCH (07:05)
--- NOTE | 2017-08-02 08:49 | CARD ---
APPROVED REPORT EKG Measurement Heart [id number] <Conclusion> Sinus bradycardia Otherwise normal ECG
[2017-08-02 09:36] LABS: T4 10.4 ug/dl (5.5-11.0)
--- NOTE | 2017-08-02 11:00 | PCM.PSYCH ---
Initial Psychiatric Evaluation - Initial Psychiatric Evaluation Type of Admission: Voluntary Legal Status: Capacity Chief Complaint (in patient's own words): I am very sad and depressed, life is so hard on me now Patient's Reaction to Hospitalization: pt requested help History of Present Illness and Precipitating Events: pt is 56 ys old female, previous diagnosis of schizoaffective disorder, pt compliant with medications , reported for past few weeks feeling increasingly depressed related that to the anniversary of of her mother and brother, pt also is having severe financial difficulties with possible eviction from her home pt reported low energy, anhedonia , inability to function, poor appetite with about 10lb weight loss the past month, poor concentration on day of evaluation pt started having suicidal ideations, came to ER seeking help On the unit pt presenting with labile affect, irritable, tearful angry and depressed,pt reporting passive suicidal ideations, stating this is not a way to live , denied any active plan or intent on the unit, pressured speech, and tangential thought process denied command hallucinations denied homicidal ideations, urine toxicology is negative Current Medications: Active Medications Generic Name Dose Route Start Last Admin Trade Name Freq PRN Reason Stop Dose Admin Acetaminophen 650 mg 08/01/17 21:23 Tylenol 325mg Tab PO Q4 PRN pain level 4-7 Al Hydrox/Mg Hydrox/Simethicone 30 ml 08/01/17 21:23 Maalox Plus 30 Ml PO Q4 PRN Dyspepsia Diphenhydramine HCl 50 mg 08/01/17 21:23 Benadryl IM Q6 PRN Extrapyramidal S/S Unable PO Diphenhydramine HCl 50 mg 08/01/17 21:23 Benadryl PO Q6 PRN Extrapyramidal Symptoms Diphenhydramine HCl 50 mg 08/01/17 21:26 08/01/17 23:04 Benadryl PO 50 mg HS PRN Administration Sleep Haloperidol 5 mg 08/01/17 21:23 Haldol PO Q4 PRN Agitation Haloperidol Lactate 5 mg 08/01/17 21:23 Haldol IM Q4 PRN Agitation, Unable to Take PO Levothyroxine Sodium 88 mcg 08/02/17 06:30 08/02/17 07:05 Synthroid PO 88 mcg DAILY@0630 OMAR Administration [place] Carbonate 300 mg 08/02/17 09:00 [place] Carbonate 300mg PO TID OMAR Lorazepam 2 mg 08/01/17 21:23 Ativan IM Q4 PRN Anxiety/Agitation,Unable PO Lorazepam 2 mg 08/01/17 21:23 08/01/17 23:04 Ativan PO 2 mg Q4 PRN Administration Anxiety/Agitation Losartan Potassium 50 mg 08/02/17 09:00 08/02/17 09:43 Cozaar PO 50 mg DAILY OMAR Administration Magnesium Hydroxide 30 ml 08/01/17 21:23 Milk Of Magnesia PO HS PRN Constipation Metformin HCl 500 mg 08/02/17 09:00 08/02/17 09:43 Glucophage PO 500 mg BID OMAR Administration Quetiapine Fumarate 50 mg 08/02/17 22:00 Seroquel PO HS OMAR Quetiapine Fumarate 25 mg 08/02/17 17:00 Seroquel PO BID OMAR Past Psychiatric History - Past Psychiatric History Explanation of prior treatment: pt has intensive psychiatric history with multiple inpatient hospitalizations, currently linked to [facility] Pertinent Medical Hx (Current Medical&Sleep Prob, Allergies): Allergies Allergy/AdvReac Type Severity Reaction Status Date / Time tomato Allergy RASH Verified 08/01/17 12:22 Benztropine [Cogentin] 1 mg PO Q12 08/01/17 Haldol Decanoate 1 vial IM Q30D 08/01/17 Levothyroxine [Synthroid] 88 mcg PO DAILY 08/01/17 [place] Carbonate [[place] Carbon[place] 300MG] 300 mg PO Q8 08/01/17 Losartan [Cozaar] 50 mg PO DAILY 08/01/17 metFORMIN [glucOPHAGE] 500 mg PO BID 08/01/17 Mental Status Examination - Personal Presentation Personal Presentation: Looks stated age, Looks older than stated age - Affect Affect: Constricted - Motor Activity Motor Activity: Psychomotor Agitation - Reliability in Providing Information Reliability in Providing Information: Poor, due to alteration in thoughts, Poor , due to altered mood - Speech Speech: Tangential Additional comments: LOUD, PRESSURED - Mood Mood: Depressed, Anxious - Formal Thought Process Formal Thought Process: Paranoia, Loosening of associations, Circumstantial - Hallucinations/Delusions Delusions: Granduer, Persecution - Obsessions/Compulsions Obsessions: No Compulsions: No - Cognitive Functions Orientation: Person, Place Sensorium: Alert Attention/Concentration: Easily distracted Abstract Thinking: [place] Judgement: Imparied, as evidence by: Poor judgement, Imparied, as evidence by: Lack of insight into illness - Risk Risk: Diminished functioning - Strength & Assets Inventory Strength & Assets Inventory: Employment history - Limitations Additional comments: FINANCIAL DIFFICULTIES DSM 5 DX - DSM 5 DSM 5 Diagnosis: SCHIZOAFFECTIVE DISORDER BIPOLAR - Recommended/Plan of Treatment Treatment Recommendations and Plan of Treatment: LITHIUM 300MGTID START SEROQUEL 25MG BID AND 50MG QHS CBT GROUP AND SUPPORTIVE THERAPY
--- NOTE | 2017-08-02 16:10 | CP.PCM.CON ---
History of Present Illness - History of Present Illness History of Present Illness: 56 yo female with history of DM2, HTN, Hypothyroidism and Schizoaffective DO admitted in psyche unit because of worsening depression Review of Systems - Review of Systems All systems: reviewed and no additional remarkable complaints except (aside from those mentioned above, 12 point system review were negative by me) Past Patient History - Infectious Disease Hx of Infectious Diseases: None - Tetanus Immunizations Tetanus Immunization: Unknown - Past Social History Smoking Status: Never Smoked Alcohol: None Drugs: Denies - CARDIAC Hx Hypercholesterolemia: Yes Hx Hypertension: Yes - PULMONARY Hx Respiratory Disorders: No Hx Tuberculosis: No - NEUROLOGICAL Hx Neurological Disorder: No Hx Seizures: No - HEENT Hx HEENT Problems: No - RENAL Hx Chronic Kidney Disease: No - ENDOCRINE/METABOLIC Hx Endocrine Disorders: Yes Hx Diabetes Mellitus Type 2: Yes Hx Hypothyroidism: Yes - HEMATOLOGICAL/ONCOLOGICAL Hx Blood Disorders: No Hx Human Immunodeficiency Virus (HIV): No - INTEGUMENTARY Hx Dermatological Problems: No - MUSCULOSKELETAL/RHEUMATOLOGICAL Hx Musculoskeletal Disorders: Yes Hx Arthritis: Yes - GASTROINTESTINAL Hx Gastrointestinal Disorders: Yes Hx Gastroesophageal Reflux: Yes - GENITOURINARY/GYNECOLOGICAL Hx Genitourinary Disorders: No Hx Sexually Transmitted Disorders: No - PSYCHIATRIC Hx Bipolar Disorder: Yes Hx Schizophrenia: Yes Hx Substance Use: No - SURGICAL HISTORY Hx Cholecystectomy: Yes - ANESTHESIA Hx Anesthesia: Yes Hx Anesthesia Reactions: No Hx Malignant Hyperthermia: No Meds Allergies/Adverse Reactions: Allergies Allergy/AdvReac Type Severity Reaction Status Date / Time tomato Allergy RASH Verified 08/01/17 12:22 - Medications Medications: Current Medications Acetaminophen (Tylenol 325mg Tab) 650 mg PO Q4 PRN PRN Reason: pain level 4-7 Al Hydrox/Mg Hydrox/Simethicone (Maalox Plus 30 Ml) 30 ml PO Q4 PRN PRN Reason: Dyspepsia Diphenhydramine HCl (Benadryl) 50 mg IM Q6 PRN PRN Reason: Extrapyramidal S/S Unable PO Diphenhydramine HCl (Benadryl) 50 mg PO Q6 PRN PRN Reason: Extrapyramidal Symptoms Diphenhydramine HCl (Benadryl) 50 mg PO HS PRN PRN Reason: Sleep Last Admin: 08/01/17 23:04 Dose: 50 mg Haloperidol (Haldol) 5 mg PO Q4 PRN PRN Reason: Agitation Haloperidol Lactate (Haldol) 5 mg IM Q4 PRN PRN Reason: Agitation, Unable to Take PO Levothyroxine Sodium (Synthroid) 88 mcg PO DAILY@0630 [facility] Last Admin: 08/02/17 07:05 Dose: 88 mcg [place] Carbonate ([place] Carbonate 300mg) 300 mg PO DAILY [facility] [place] Carbonate ([place] Carbonate 150mg) 450 mg PO HS [facility] Lorazepam (Ativan) 2 mg IM Q4 PRN PRN Reason: Anxiety/Agitation,Unable PO Lorazepam (Ativan) 2 mg PO Q4 PRN PRN Reason: Anxiety/Agitation Last Admin: 08/01/17 23:04 Dose: 2 mg Losartan Potassium (Cozaar) 50 mg PO DAILY [facility] Last Admin: 08/02/17 09:43 Dose: 50 mg Magnesium Hydroxide (Milk Of Magnesia) 30 ml PO HS PRN PRN Reason: Constipation Metformin HCl (Glucophage) 500 mg PO BID [facility] Last Admin: 08/02/17 09:43 Dose: 500 mg Zolpidem Tartrate (Ambien) 5 mg PO HS PRN PRN Reason: Insomnia Physical Exam - Constitutional Appears: No Acute Distress - Head Exam Head Exam: ATRAUMATIC - Eye Exam Eye Exam: absent: Scleral icterus - ENT Exam ENT Exam: Mucous Membranes Moist - Neck Exam Neck exam: Negative for: Meningismus - Respiratory Exam Respiratory Exam: absent: Rales, Rhonchi, Wheezes, Respiratory Distress - Cardiovascular Exam Cardiovascular Exam: REGULAR RHYTHM, +S1, +S2 - GI/Abdominal Exam GI & Abdominal Exam: Soft. absent: Tenderness - Rectal Exam Rectal Exam: Deferred - Extremities Exam Extremities exam: Negative for: calf tenderness, pedal edema - Neurological Exam Neurological exam: Alert, Oriented x3 - Psychiatric Exam Psychiatric exam: Normal Affect Results - Vital Signs Recent Vital Signs: Last Vital Signs Temp 97.1 F L 08/02/17 09:00 Pulse 62 08/02/17 09:00 Resp 18 08/02/17 09:00 BP 113/76 08/02/17 09:43 Pulse Ox 100 08/01/17 21:22 - Labs Result Diagrams: 08/01/17 15:32 08/01/17 15:32 Labs: Laboratory Results - last 24 hr 08/01/17 08/01/17 08/01/17 16:55 16:55 20:29 POC Glucose (mg/dL) 118 H Hemoglobin A1c Triglycerides Cholesterol LDL Cholesterol Direct HDL Cholesterol Thyroxine (T4) TSH 3rd Generation Urine Color Colorless Urine Clarity Clear Urine pH 6.0 Ur Specific [place] < 1.005 Urine Protein Negative Urine Glucose (UA) Neg Urine Ketones Negative Urine Blood Negative Urine Nitrate Negative Urine Bilirubin Negative Urine Urobilinogen 0.2-1.0 Ur Leukocyte Esterase Neg Urine RBC (Auto) < 1 Urine Microscopic WBC < 1 Urine Bacteria Rare Urine Opiates Screen Negative Urine Methadone Screen Negative Ur Barbiturates Screen Negative Ur Phencyclidine Scrn Negative Ur Amphetamines Screen Negative U Benzodiazepines Scrn Negative U Oth Cocaine Metabols Negative U Cannabinoids Screen Negative 08/02/17 08/02/17 08:36 08:36 POC Glucose (mg/dL) Hemoglobin A1c 5.8 Triglycerides 144 Cholesterol 155 LDL Cholesterol Direct 99 HDL Cholesterol 25 L Thyroxine (T4) 10.4 TSH 3rd Generation 2.27 Urine Color Urine Clarity Urine pH Ur Specific [place] Urine Protein Urine Glucose (UA) Urine Ketones Urine Blood Urine Nitrate Urine Bilirubin Urine Urobilinogen Ur Leukocyte Esterase Urine RBC (Auto) Urine Microscopic WBC Urine Bacteria Urine Opiates Screen Urine Methadone Screen Ur Barbiturates Screen Ur Phencyclidine Scrn Ur Amphetamines Screen U Benzodiazepines Scrn U Oth Cocaine Metabols U Cannabinoids Screen Assessment & Plan (1) Depression Status: Acute Comment: psyche is managing (2) DM II (diabetes mellitus, type II), controlled Status: Chronic Comment: BS controlled. Metformin 500mg PO BID. accuchek ACHS (3) Hypothyroid Status: Chronic Comment: TSH: 2.27. Levothyroxine 500mg PO BID (4) HTN (hypertension) Status: Chronic Comment: BP stable. Losartan 50mg PO daily
[2017-08-02] MEDS: Lithium Carbonate 150 MG CAP PO SCH (21:35)
[2017-08-03] MEDS: Levothyroxine 88 MCG TAB PO SCH (06:03)
--- NOTE | 2017-08-03 13:48 | PCM.PYCHPN ---
Psychiatric Progress Note - Psychiatric Progress Note Patient seen today, length of contact: pt evaluated discussed with team chart reviewed Patient Chief Complaint: I am very sad and depressed, life is so hard on me now Problems Identified/Issues Discussed: pt evaluated with treatment team, reported improved sleep and appetite however pt continues to be depressed edgy and irritable, thought form circumstantial with overproductive speech, discussed with pt gradual increase in dose of lithium with follow up on lithium level also aware of meeting arranged with PACT team pt denied any current suicidal or homicidal ideations denied perceptual disturbances, no reported side effects of medications Medical Problems: pt has intensive psychiatric history with multiple inpatient hospitalizations, currently linked to PACT DSM 5 Symptoms Update: bipolar disorder mixed severe Medication Change: No Medical Record Reviewed: Yes Mental Status Examination - Cognitive Function Orientation: Person, Place Attention: Poor Concentration: Poor Association: Loose Fund of Knowledge: Poor Decription of patient's judgement and insights: partial insight , poor judgment - Mood Mood: Depressed, Anxious - Affect Affect: Depressed Additional comments: labile , - Speech Speech: Loud Additional comments: over productive - Formal Thought Process Formal Thought Process: Loosening of associations, Circumstantial Psychotic Thoughts and Behaviors: pt denied perceptual disturbances, non elicited - Suicidal Ideation Suicidal Ideation: No - Homicidal Ideation Homicidal Ideation: No Goal/Treatment Plan - Goal/Treatment Plan Need for Continued Stay: Remain at risks for inpatient hospitalization, Severe depression anxiety, Discharge may exacerbated symptoms Progress Toward Problem(s) and Goals/Treatment Plan: pt labile , irritable depressed, pt currently on haldol decanoate 100mg im qmonth lithium increased to 300mg daily and 450mg qhs with plan to uptitrate after follow up on lithium level on 08/05/17 group and supportive therapy meeting with PACT arranged by social studies teacher on 08/04/17 Estimated Date of D/C: 08/07/17
[2017-08-03] MEDS: Lithium Carbonate 150 MG CAP PO SCH (21:08)
[2017-08-04] MEDS: Levothyroxine 88 MCG TAB PO SCH (05:51)
--- NOTE | 2017-08-04 08:28 | PCM.PYCHPN ---
Psychiatric Progress Note - Psychiatric Progress Note Patient seen today, length of contact: pt evaluated discussed with team chart reviewed Patient Chief Complaint: pt still feel depressed and easily irritible and still misses the mother and brother whose anniversary just passed .pt is doing better on lithium Medication Change: No Medical Record Reviewed: Yes Mental Status Examination - Cognitive Function Orientation: Person, Place Attention: Poor Concentration: Poor Association: Loose Fund of Knowledge: Poor - Mood Mood: Depressed, Anxious - Affect Affect: Depressed - Speech Speech: Loud - Formal Thought Process Formal Thought Process: Loosening of associations, Circumstantial - Suicidal Ideation Suicidal Ideation: No - Homicidal Ideation Homicidal Ideation: No Goal/Treatment Plan - Goal/Treatment Plan Need for Continued Stay: Remain at risks for inpatient hospitalization, Severe depression anxiety, Discharge may exacerbated symptoms Progress Toward Problem(s) and Goals/Treatment Plan: will continue to further stabilize the pt with titration of lithium and will check lithium level in am . Estimated Date of D/C: 08/07/17
[2017-08-04] MEDS: Lithium Carbonate 150 MG CAP PO SCH (21:14)
[2017-08-05] MEDS: Levothyroxine 88 MCG TAB PO SCH (06:12)
--- NOTE | 2017-08-05 14:30 | PCM.PYCHPN ---
Psychiatric Progress Note - Psychiatric Progress Note Patient seen today, length of contact: pt evaluated discussed with team chart reviewed Patient Chief Complaint: pt is feeling depressed and denies side effects to meds .pt still feel depressed and easily irritible and still misses the mother and brother whose anniversary just passed .pt is doing better on lithium Medication Change: No Medical Record Reviewed: Yes Mental Status Examination - Cognitive Function Orientation: Person, Place Attention: Poor Concentration: Poor Association: Loose Fund of Knowledge: Poor - Mood Mood: Depressed, Anxious - Affect Affect: Depressed - Speech Speech: Loud - Formal Thought Process Formal Thought Process: Loosening of associations, Circumstantial - Suicidal Ideation Suicidal Ideation: No - Homicidal Ideation Homicidal Ideation: No Goal/Treatment Plan - Goal/Treatment Plan Need for Continued Stay: Remain at risks for inpatient hospitalization, Severe depression anxiety, Discharge may exacerbated symptoms Progress Toward Problem(s) and Goals/Treatment Plan: will continue to further stabilize the pt with titration of lithium and will check lithium level in am . Estimated Date of D/C: 08/07/17
[2017-08-05] MEDS: Lithium Carbonate 150 MG CAP PO SCH (21:21)
[2017-08-06] MEDS: Levothyroxine 88 MCG TAB PO SCH (06:44)
--- NOTE | 2017-08-06 12:50 | PCM.PYCHPN ---
Psychiatric Progress Note - Psychiatric Progress Note Patient seen today, length of contact: pt evaluated discussed with team chart reviewed Patient Chief Complaint: I feel calmer because I slept better Problems Identified/Issues Discussed: pt evaluated , presenting with better mood, affect brightr and less anxious, pt is less labile, speech less pressured, thought form more goal directed pt reported improved sleep with positive impact on her mood, feeling less depressed, no reported side effects with the increase in lithium, lithium level noted to be 0.9, discussed with pt importance of maintaining fluid intake with current dose of lithium, pt reported episodes of anxiety when thinking about her ciurrent living situation and the financial difficulties ,meeting was arranged by social work associate with PACT team with addressing possible pt needs pt denied any current suicidal or homicidal ideations denied perceptual disturbances, CBT provided Medical Problems: pt has intensive psychiatric history with multiple inpatient hospitalizations, currently linked to PACT DSM 5 Symptoms Update: BIPOLAR I disorder MRE mixed severe Medication Change: No Medical Record Reviewed: Yes Mental Status Examination - Cognitive Function Orientation: Person, Place Attention: WNL Concentration: WNL Association: WNL Fund of Knowledge: Poor Decription of patient's judgement and insights: fair insight and judgment - Mood Mood: Anxious - Affect Affect: Constricted - Speech Speech: Appropriate - Formal Thought Process Formal Thought Process: Circumstantial - Suicidal Ideation Suicidal Ideation: No - Homicidal Ideation Homicidal Ideation: No Goal/Treatment Plan - Goal/Treatment Plan Need for Continued Stay: Remain at risks for inpatient hospitalization, Severe depression anxiety, Discharge may exacerbated symptoms Progress Toward Problem(s) and Goals/Treatment Plan: pt currently on haldol decanoate 100mg im qmonth lithium 300mg daily and 450mg qhs lithium level on 08/05/17 0.9 group and supportive therapy Estimated Date of D/C: 08/07/17
[2017-08-06 17:54] VITALS: PULSE 59; TEMP 97.1
[2017-08-06] MEDS: Lithium Carbonate 150 MG CAP PO SCH (21:33)
[2017-08-07] MEDS: Levothyroxine 88 MCG TAB PO SCH (06:28)
[2017-08-07 09:14] VITALS: BP 128/78
--- NOTE | 2017-08-07 17:17 | PCM.PYCHDC ---
Mental Status Examination - Mental Status Examination Orientation: Person, Place Memory: Intact Mood: Neutral Affect: Broad Speech: Appropriate Attention: WNL Concentration: WNL Association: WNL Fund of Knowledge: WNL Formal Thought Process: Circumstantial Description of patient's judgement and insight: fair insight and judgment Psychotic Thoughts and Behaviors: pt denied perceptual disturbances, non elicited Suicidal Ideation: No Current Homicidal Ideation?: No Discharge Summary - Discharge Note Reason for Hospitalization: pt requested help pt is 56 ys old female, previous diagnosis of schizoaffective disorder, pt compliant with medications , reported for past few weeks feeling increasingly depressed related that to the anniversary of of her mother and brother, pt also is having severe financial difficulties with possible eviction from her home pt reported low energy, anhedonia , inability to function, poor appetite with about 10lb weight loss the past month, poor concentration on day of evaluation pt started having suicidal ideations, came to ER seeking help On the unit pt presenting with labile affect, irritable, tearful angry and depressed,pt reporting passive suicidal ideations, stating this is not a way to live , denied any active plan or intent on the unit, pressured speech, and tangential thought process denied command hallucinations denied homicidal ideations, urine toxicology is negative Consultations:: List each consultation separately and include: 1. Reason for request. 2. Findings. 3. Follow-up Summary of Hospital Course include:: 1. Description of specific treatment plan utilized for patients during their course of treatmen. 2. Summarize the time- course for resolution of acute symptoms and/or regressed behaviors. 3. Describe issues identified and worked on during hospitalization. 4. Describe medication utilized. 5. Describe medical problems identified and treated. 6. Reassessment of suicide risk Summary of Hospital Course: pt on admission presented with depressed mood and affect, lithium was increased to 450mg qhs and 300mg daily, lithium level was 0.9 group CBT and supportive therapy provided social work specialist arranged meeting with PACT team pt gradually presented with mores stable mood and affect on discharge pt denied any current suicidal or homicidal ideations denied perceptual disturbances, no reported side effects of medications - Diagnosis (1) Depression Status: Acute - Final Diagnosis (DSM 5) Condition upon Discharge: STABLE Disposition: HOME/ ROUTINE Follow-up Treatment Plan: pt currently on haldol decanoate 100mg im qmonth lithium 300mg daily and 450mg qhs lithium level on 08/05/17 0.9 group and supportive therapy Prescriptions/Medication Reconciliation: [employer] Carbonate [[employer] Carbonate 150MG] 450 mg PO HS 30 Days #90 cap [employer] Carbonate [[employer] Carbonate 300MG] 300 mg PO DAILY 30 Days #30 cap - Antipsychotic Medications Pt discharged on 2 or more routine antipsychotic medications: No
== END 2017-08-07 12:34 | disposition home or self-care (01) | DRG 881 ==
LOC: H.ER 12:09 → H.ERHOLD 18:31 → H.PSYCH 21:21
PROVIDERS: ADMIT Psychiatry & Neurology Psychiatry; ATTEND Psychiatry & Neurology Psychiatry
PROC: GZHZZZZ Group Psychotherapy (ICD-10-PCS; principal; 2017-08-01)
PROC: GZ58ZZZ Individual Psychotherapy, Cognitive-Behavioral (ICD-10-PCS; 2017-08-01)
PROC: GZ56ZZZ Individual Psychotherapy, Supportive (ICD-10-PCS; 2017-08-01)
DX: F32.9 Major depressive disorder, single episode, unspecified (principal); E03.9 Hypothyroidism, unspecified; I10 Essential (primary) hypertension; E11.9 Type 2 diabetes mellitus without complications; E78.00 Pure hypercholesterolemia, unspecified; M19.90 Unspecified osteoarthritis, unspecified site

== ENCOUNTER 2017-08-20 12:30 | Inpatient (IN) | payer MEDICARE, MEDICAID ==
--- NOTE | 2017-08-20 12:46 | ED PDOC ---
HPI: Psych/Substance Abuse Time Seen by Provider: 08/20/17 12:42 Chief Complaint (Nursing): Psychiatric Evaluation Chief Complaint (Provider): crisis eval History Per: Patient Additional Complaint(s): 57 year old female presents for crisis evaluation. Mobile crisis came to patient's home today and recommended the patient come to ER. Patient has been increasingly paranoid and having flight of ideas. Patient also mentioned that she has not been receiving her medications and therefore has not been taking her medications. Upon arrival patient is acutely anxious and paranoid. Past Medical History Reviewed: Historical Data, Nursing Documentation, Vital Signs Vital Signs: Last Vital Signs Temp 98.5 F 08/20/17 12:36 Pulse 84 08/20/17 12:36 Resp 20 08/20/17 12:36 BP Pulse Ox 96 08/20/17 12:36 - Medical History PMH: Anxiety, Arthritis, Bipolar Disorder, Depression, Diabetes, HTN, Hypercholesterolemia, Hypothyroidism, Schizophrenia - Surgical History Surgical History: Cholecystectomy, Hernia Repair (umbilical hernia repair) - Family History Family History: States: No Known Family Hx - Living Arrangements Living Arrangements: With Family - Social History Current smoker - smoking cessation education provided: No Alcohol: None Drugs: Denies - Home Medications Home Medications: Ambulatory Orders Medication Instructions Recorded Benztropine [Cogentin] 1 mg PO Q12 08/01/17 Levothyroxine [Synthroid] 88 mcg PO DAILY 08/01/17 Losartan [Cozaar] 50 mg PO DAILY 08/01/17 metFORMIN [glucOPHAGE] 500 mg PO BID 08/01/17 [place] Carbonate [[place] 450 mg PO HS 30 Days #90 cap 08/07/17 Carbonate 150MG] [place] Carbonate [[place] 300 mg PO DAILY 30 Days #30 cap 08/07/17 Carbonate 300MG] Ammonium Lactate 12% [Lac-Hydrin 1 ea EXT PRN PRN 08/20/17 12%] [place]/Vit B12/Folic Acid/Vit B6 1 each PO DAILY 08/20/17 [Folic Acid-Vit B6-Vit B12 Tab] Famotidine [Pepcid] 20 mg PO DAILY 08/20/17 Lecithin 1,200 mg PO DAILY 08/20/17 Pregabalin [Lyrica] 75 mg PO DAILY 08/20/17 - Allergies Allergies/Adverse Reactions: Allergies Allergy/AdvReac Type Severity Reaction Status Date / Time tomato Allergy RASH Verified 08/20/17 12:36 Review of Systems ROS Statement: Except As Marked, All Systems Reviewed And Found Negative Psych: Positive for: Other (paranoia, anxious) Physical Exam - Reviewed Nursing Documentation Reviewed: Yes Vital Signs Reviewed: Yes - Physical Exam Appears: Positive for: Well, Non-toxic, No Acute Distress Skin: Positive for: Normal Color. Negative for: Rash Eye Exam: Positive for: Normal appearance Cardiovascular/Chest: Positive for: Regular Rate, Rhythm Respiratory: Positive for: Normal Breath Sounds. Negative for: Respiratory Distress Neurologic/Psych: Positive for: Alert, Mood/Affect (acutely anxious and paranoid ), Other (does not answer questions appropriately) - Laboratory Results Result Diagrams: 08/20/17 13:20 08/20/17 13:20 - ECG Interpretation Of ECG: NSR 72 bpm, no acute finding, reviewed by PA and ED attending O2 Sat by Pulse Oximetry: 96 Pulse Ox Interpretation: Normal - Other Rad CXR X-Ray: Interpreted by Me, Viewed By Me X-Ray Interpretation: no acute finding Medical Decision Making Medical Decision Makin57 year old EDP Plan: Crisis consult 1:1 bedside observation CBC CMP BAL UDS UA CXR EKG Medicated with ativan 2 mg IM and haldol 5 mg IM due to agitation and combativeness. As per crisis counselor and psychiatrist reimbursement liaison, Dr. Sanchez, patient does meet criteria for admission. Patient agrees and signed herself in. UTI noted, macrobid initial dose given in ED. Patient is medically stable for psychiatric admission. Disposition - Clinical Impression Clinical Impression: Schizo affective schizophrenia - Patient ED Disposition Is Patient to be Admitted: Yes - Disposition Disposition Time: 16:44 Condition: FAIR Results - Lab Results Lab Results: 08/20/17 08/20/17 08/20/17 13:35 13:35 13:20 WBC 9.0 RBC 4.03 Hgb 12.8 Hct 37.2 MCV 92.5 MCH 31.8 H MCHC 34.4 RDW 14.9 H Plt Count 262 MPV 7.3 Neut % (Auto) 62.4 Lymph % (Auto) 29.0 [place] % (Auto) 5.3 Eos % (Auto) 3.0 Baso % (Auto) 0.3 Neut # (Auto) 5.6 Lymph # (Auto) 2.6 [place] # (Auto) 0.5 Eos # (Auto) 0.3 Baso # (Auto) 0.0 Sodium Potassium Chloride Carbon Dioxide Anion Gap BUN Creatinine Est GFR ( Amer) Est GFR (Non-Af Amer) Random Glucose Calcium Total Bilirubin AST ALT Alkaline Phosphatase Total Protein Albumin Globulin Albumin/Globulin Ratio Urine Color Straw Urine Clarity Clear Urine pH 7.0 Ur Specific [place] 1.005 Urine Protein Negative Urine Glucose (UA) Neg Urine Ketones Negative Urine Blood Negative Urine Nitrate Negative Urine Bilirubin Negative Urine Urobilinogen 0.2-1.0 Ur Leukocyte Esterase Small Urine RBC (Auto) 1 Urine Microscopic WBC 2 Ur Squamous Epith Cells < 1 Urine Bacteria Rare Urine Opiates Screen Negative Urine Methadone Screen Negative Ur Barbiturates Screen Negative Ur Phencyclidine Scrn Negative Ur Amphetamines Screen Negative U Benzodiazepines Scrn Negative U Oth Cocaine Metabols Negative U Cannabinoids Screen Negative Alcohol, Quantitative 08/20/17 13:20 WBC RBC Hgb Hct MCV MCH MCHC RDW Plt Count MPV Neut % (Auto) Lymph % (Auto) [place] % (Auto) Eos % (Auto) Baso % (Auto) Neut # (Auto) Lymph # (Auto) [place] # (Auto) Eos # (Auto) Baso # (Auto) Sodium 134 Potassium 4.3 Chloride 101 Carbon Dioxide 20 L Anion Gap 17 BUN 15 Creatinine 0.6 L Est GFR ( Amer) > 60 Est GFR (Non-Af Amer) > 60 Random Glucose 90 Calcium 9.3 Total Bilirubin 1.0 AST 25 ALT 43 Alkaline Phosphatase 89 Total Protein 7.4 Albumin 4.0 Globulin 3.4 Albumin/Globulin Ratio 1.2 Urine Color Urine Clarity Urine pH Ur Specific [place] Urine Protein Urine Glucose (UA) Urine Ketones Urine Blood Urine Nitrate Urine Bilirubin Urine Urobilinogen Ur Leukocyte Esterase Urine RBC (Auto) Urine Microscopic WBC Ur Squamous Epith Cells Urine Bacteria Urine Opiates Screen Urine Methadone Screen Ur Barbiturates Screen Ur Phencyclidine Scrn Ur Amphetamines Screen U Benzodiazepines Scrn U Oth Cocaine Metabols U Cannabinoids Screen Alcohol, Quantitative < 10
[2017-08-20 13:28] LABS: BASO % 0.3 % (0.0-2.0); EOS # 0.3 K/uL (0.0-0.7); HEMOGLOBIN 12.8 g/dL (12.0-16.0); LYMPH # 2.6 K/uL (1.0-4.3); MEAN CELL VOLUME 92.5 fl (81.0-99.0); MEAN CORPUSCULAR HEMOGLOBIN 31.8 pg (27.0-31.0); MEAN CORPUSCULAR HGB CONC 34.4 g/dL (33.0-37.0); MEAN PLATELET VOLUME 7.3 fl (7.2-11.7); MONO # 0.5 K/uL (0.0-0.8); MONO % 5.3 % (0.0-10.0); NEUT # 5.6 K/uL (1.8-7.0); NEUT % 62.4 % (50.0-75.0); NRBC % 0.1 % (0.0-0.0); RBC 4.03 Mil/uL (3.80-5.20); RED CELL DISTRIBUTION WIDTH 14.9 % (11.5-14.5)
[2017-08-20 13:48] LABS: ALB/GLOB RATIO 1.2 (1.0-2.1); ALT/SGPT 43 U/L (9-52); AST/SGOT 25 U/L (14-36); BLOOD UREA NITROGEN 15 mg/dl (7-17); CALCIUM 9.3 mg/dL (8.4-10.2); GFR AFRICAN-AMERICAN > 60; GFR NON-AFRICAN AMERICAN > 60
[2017-08-20 14:02] LABS: BARBITURATES, UR NEGATIVE (NEGATIVE); BENZODIAZEPINES, UR NEGATIVE (NEGATIVE); OPIATES, UR NEGATIVE (NEGATIVE); PHENCYCLIDINE, UR NEGATIVE (NEGATIVE)
[2017-08-20 14:11] LABS: SQUAMOUS EPITHIAL < 1 /hpf (0-5); URINE BACTERIA RARE (<OCC); URINE BILIRUBIN NEGATIVE (NEGATIVE); URINE BLOOD NEGATIVE (NEGATIVE); URINE CLARITY CLEAR (Clear); URINE COLOR STRAW (YELLOW); URINE GLUCOSE (UA) NEG (Normal); URINE LEUKOCYTE ESTERASE SMALL Leu/uL (Negative); URINE PROTEIN NEGATIVE (NEGATIVE); URINE UROBILINOGEN 0.2-1.0 mg/dL (0.2-1.0)
--- NOTE | 2017-08-20 15:16 | RAD ---
HISTORY: Medical clearance COMPARISON: 08/01/2017 FINDINGS: LUNGS: No active pulmonary disease. PLEURA: No significant pleural effusion identified, no pneumothorax apparent. CARDIOVASCULAR: No radiographic findings to suggest acute or significant cardiovascular disease. OSSEOUS STRUCTURES: No significant abnormalities. VISUALIZED UPPER ABDOMEN: Normal. OTHER FINDINGS: None. IMPRESSION: No active disease. No significant interval change compared to the prior examination(s).
[2017-08-20 16:39] VITALS: O2SAT 96
[2017-08-20] MEDS ORDERED: DiphenhydrAMINE 50 mg/ml Inj IM PRN (17:40)
[2017-08-20] MEDS ORDERED: Magnesium Hydroxide Susp 30 ml UD PO PRN (17:40)
--- NOTE | 2017-08-20 18:28 | PCM.BM ---
<NolandJuan Pablo - Last Filed: 08/20/17 18:26> Treatment Plan Problems - Problems identified on initial assessmt Altered Thought Process Date Initiated: 08/20/17 Time Initiated: 18:27 Treatment assets and liabiliti Patient Assests: adapts well, cooperative, resourceful, self-reliant, ADL independent, physically healthy, good support system (limited supports but has loving/supportive relationship with son), negotiates basic needs, cognitively intact Patient Liabilities: financial problems - Milieu Protocol Maintain good personal hygiene: daily Encourage regular showers, daily Remind patient to perform daily oral care, daily Assist patient to perform ADL's Conduct patient checks and document Observation sheet: Q15 minutes Maintain personal safety: daily Educate patient to report safety concerns to staff Medication safety: Assess barriers to learning: daily, Assess readiness for medication education: daily Family Contact Family involvement: Family/SO is involved Family contact: Family has been contacted by patient <Shelley Dawn - Last Filed: 08/22/17 11:38> Treatment assets and liabiliti Patient Assests: adapts well, cooperative, resourceful, self-reliant, ADL independent, physically healthy, good support system, negotiates basic needs, cognitively intact Patient Liabilities: financial problems, other (inconsistently compliant) Family Contact Family involvement: Family/SO is involved Family contact: Family has been contacted by patient, Telephone contact initiated by staff Family contact name: Kristopher(son)([phone]) Family contacted how many times per week?: 2 Family contact comment: Chauffeur placed call to pts son to discuss precursors to pts hospitalization, pts progress and address family concerns. Chauffeur left voicemail with call back number and is awaiting response. - Outside Agency Agency 1 Care involvment: Following patient during stay, Information-sharing, Other Agency contact name: Josh FINNEGAN) Agency contact number: ([phone]) - Goals for Treatment Patient goals for treatment: Patient to continue stabilization on 3NP through medication management and group/supportive therapy. Patient to be encouraged to attend groups regularly to promote self-awareness, and improve insight, compliance, coping skills and self-esteem. Patient to be provided with referral for appropriate level of aftercare to reduce risk of future hospitalizations and ensure safety in the community. Discharge/Continuing Care - Education Needs Education Needs: Family Medication, Family Coping Skills, Family Placement options, Family Aftercare Safety Plan, Patient Medication, Patient Coping Skills , Patient Placement options, Patient Aftercare Safety Plan - Discharge Discharge Criteria: Tolerates medication w/o severe side effects, Free of paranoid thoughts, Free of agitation, Normal sleep pattern, Ability to care for self, Reduction of target symptoms (improvement in sxs of lois ; organization of thoughts) Discharge to:: Home, With Family, Other (PACT) - Treatment Team Participation Patient/Family/SO Statement: 08/22/17 11:44 Patient attended tx team and was able to engage in discussion regarding precursors to hospitalization and tx goals. Pt. presents as disorganized, tangential and with loosened associations. Pt. labile but responds well to redirection. Insight is limited. Coping skills/judgment impaired. Medication management discussed at length. Importance of hydration and being careful with high temperatures in the summer while on lithium explained. Pt. expressed understanding. Pt. refusing seroquel, stating that it has given her diabetes. Discussed with Family/SO: No Was Patient/Family/SO present at Treatment Team Meeting: Yes <Davion Landaverde - Last Filed: 08/22/17 14:37> - Diagnosis (1) Lois Status: Acute Interventions: 08/22/17 14:36 psychotherapy, pharmacoterapy
[2017-08-20 19:45] LABS: HDL CHOLESTEROL 25 MG/DL (30-70)
[2017-08-20] MEDS ORDERED: Ammonium Lactate 12% Cream (140 g) EXT PRN (19:52)
[2017-08-20 19:55] LABS: LDL CHOLESTEROL 99 mg/dL (0-129)
[2017-08-20] MEDS: Lithium Carbonate 150 MG CAP PO SCH (21:00)
[2017-08-20] MEDS: Insulin Regular 100 units/ml SC SCH (22:24)
[2017-08-21] MEDS: Levothyroxine 88 MCG TAB PO SCH (06:17)
[2017-08-21 06:27] LABS: T4 9.32 ug/dl (5.5-11.0)
[2017-08-21] MEDS ORDERED: LECITHIN 1200 MG PO SCH (09:00)
[2017-08-21] MEDS: Insulin Regular 100 units/ml SC SCH ×4 (09:01→21:17)
--- NOTE | 2017-08-21 11:25 | PCM.PSYCH ---
Initial Psychiatric Evaluation - Initial Psychiatric Evaluation Type of Admission: Voluntary Legal Status: Capacity Chief Complaint (in patient's own words): I only started dancing and singing and they called security Patient's Reaction to Hospitalization: pt agreed to get help History of Present Illness and Precipitating Events: pt with previous diagnosis of bipolar disorder, multiple inpatient hospitalizations, currently under the care of PACT TEAM visiting her three times a week , pt's custom home installer has been on vacation, with questionable compliance with medications during that time, on day of evaluation when manager case management visited the patient she was presenting with paranoid ideation towards her stating that she would be giving her the wrong injection, pt also was loud manic, singing and dancing she was having loose association, security was called and patient was brought to ER for evaluation On the unit patient is loud, intrusive , paranoid towards other patients, asking one patient to remove her manuel so she can identify her, speech is pressured with loose association,despite being followed by PACT team stated she was not taking her medications as they are too expensive, labile affect at one instance laughing inappropriately and then presenting as angry and irritable , needs frequent redirection pt denied any current suicidal or homicidal ideations denied command hallucinations Current Medications: Active Medications Generic Name Dose Route Start Last Admin Trade Name Freq PRN Reason Stop Dose Admin Acetaminophen 650 mg 08/20/17 17:40 Tylenol 325mg Tab PO Q4 PRN Pain, moderate (4-7) Al Hydrox/Mg Hydrox/Simethicone 30 ml 08/20/17 17:40 Maalox Plus 30 Ml PO Q4 PRN Dyspepsia Benztropine Mesylate 0.5 mg 08/20/17 21:00 08/21/17 09:01 Cogentin PO 0.5 mg Q12 OMAR Administration Diphenhydramine HCl 50 mg 08/20/17 17:40 Benadryl IM Q6 PRN Extrapyramidal S/S Unable PO Diphenhydramine HCl 50 mg 08/20/17 17:40 Benadryl PO Q6 PRN Extrapyramidal Symptoms Famotidine 20 mg 08/21/17 09:00 08/21/17 09:00 Pepcid PO 20 mg DAILY OMAR Administration Haloperidol 5 mg 08/20/17 17:40 Haldol PO Q4 PRN Agitation Haloperidol Lactate 5 mg 08/20/17 17:40 Haldol IM Q4 PRN Agitation, Unable to Take PO Home Med 1 each 08/21/17 09:00 Morales/Vit B12/Folic Acid/Vit B6 [Folic Acid-Vit B6-Vit B12 Tab] PO DAILY [facility] Home Med 1,200 mg 08/21/17 09:00 Lecithin [Lecithin] PO DAILY [facility] Insulin Human Regular 0 units 08/20/17 22:00 08/21/17 09:01 Humulin R SC Not Given ACHS [facility] Protocol Lactic Acid 1 ea 08/20/17 19:52 Lac-Hydrin 12% Cream (140 G) EXT PRN PRN Pain, Mild (1-3) Levothyroxine Sodium 88 mcg 08/21/17 06:30 08/21/17 06:17 Synthroid PO 88 mcg DAILY@0630 OMAR Administration Juliette Carbonate 300 mg 08/21/17 09:00 08/21/17 09:00 Juliette Carbonate 300mg PO 300 mg DAILY OMAR Administration Juliette Carbonate 450 mg 08/20/17 22:00 08/20/17 21:00 Juliette Carbonate 150mg PO 450 mg HS OMAR Administration Lorazepam 2 mg 08/20/17 17:40 Ativan IM Q4 PRN Anxiety/Agitation,Unable PO Lorazepam 2 mg 08/20/17 17:40 Ativan PO Q4 PRN Anxiety/Agitation Losartan Potassium 50 mg 08/21/17 09:00 08/21/17 09:01 Cozaar PO 50 mg DAILY OMAR Administration Magnesium Hydroxide 30 ml 08/20/17 17:40 Milk Of Magnesia PO HS PRN Constipation Metformin HCl 500 mg 08/21/17 09:00 08/21/17 09:00 Glucophage PO 500 mg BID OMAR Administration Nitrofurantoin Macrocrystals 100 mg 08/20/17 17:00 08/21/17 09:00 Macrobid PO 100 mg BID [facility] Administration Protocol Past Psychiatric History - Past Psychiatric History Explanation of prior treatment: multiple inpatient hospitalizations with partial compliance History of ETOH/Drug Use: denied History of Family Illness: son hx of schizoaffective disorder Pertinent Medical Hx (Current Medical&Sleep Prob, Allergies): Allergies Allergy/AdvReac Type Severity Reaction Status Date / Time tomato Allergy RASH Verified 08/20/17 12:36 Benztropine [Cogentin] 1 mg PO Q12 08/01/17 Levothyroxine [Synthroid] 88 mcg PO DAILY 08/01/17 Losartan [Cozaar] 50 mg PO DAILY 08/01/17 metFORMIN [glucOPHAGE] 500 mg PO BID 08/01/17 Juliette Carbonate [Juliette Carbonate 150MG] 450 mg PO HS 30 Days #90 cap Juliette Carbonate [Juliette Carbonate 300MG] 300 mg PO DAILY 30 Days #30 cap Ammonium Lactate 12% [Lac-Hydrin 12%] 1 ea EXT PRN PRN 08/20/17 Morales/Vit B12/Folic Acid/Vit B6 [Folic Acid-Vit B6-Vit B12 Tab] 1 each PO DAILY Famotidine [Pepcid] 20 mg PO DAILY 08/20/17 Lecithin 1,200 mg PO DAILY 08/20/17 Pregabalin [Lyrica] 75 mg PO DAILY 08/20/17 Mental Status Examination - Personal Presentation Personal Presentation: Looks older than stated age - Affect Additional comments: labile, manic, angry , irritable and at times euphoric - Motor Activity Motor Activity: Psychomotor Agitation - Reliability in Providing Information Reliability in Providing Information: Poor, due to alteration in thoughts, Poor , due to altered mood - Speech Speech: Tangential, Incoherent - Formal Thought Process Formal Thought Process: Delusions (pt denied command hallucinations), Paranoia - Hallucinations/Delusions Additional comments: pt denied command hallucinations - Obsessions/Compulsions Obsessions: No Compulsions: No - Cognitive Functions Orientation: Person, Place Sensorium: Alert Attention/Concentration: Easily distracted Abstract Thinking: [place] Judgement: Imparied, as evidence by: Poor judgement, Imparied, as evidence by: Lack of insight into illness - Risk Risk: Diminished functioning - Strength & Assets Inventory Strength & Assets Inventory: Life experience - Limitations Additional comments: financial stressors, long history of mental illness DSM 5 DX - DSM 5 DSM 5 Diagnosis: bipolar I disorder MRE manic severe with psychotic features - Recommended/Plan of Treatment Treatment Recommendations and Plan of Treatment: start lithium 300mg daily and 400mg qhs, follow up on lithium level and uptitrate accordingly haldol dec IM 08/22/17 seroquel 25mg qhs follow up on psychopharmacological effects and side effect profile supportive therapy
[2017-08-21] MEDS: Lithium Carbonate 150 MG CAP PO SCH (21:01)
[2017-08-22] MEDS: Levothyroxine 88 MCG TAB PO SCH (06:22)
[2017-08-22] MEDS: Insulin Regular 100 units/ml SC SCH (06:41)
[2017-08-22 07:13] LABS: HDL CHOLESTEROL 24 MG/DL (30-70)
[2017-08-22 07:23] LABS: LDL CHOLESTEROL 97 mg/dL (0-129)
--- NOTE | 2017-08-22 11:57 | PCM.PYCHPN ---
Psychiatric Progress Note - Psychiatric Progress Note Patient seen today, length of contact: pt evaluated discussed with team chart reviewed Patient Chief Complaint: I am so happy , I love Sunday and Sunday Problems Identified/Issues Discussed: pt on evaluation, extremely labile, loud with pressured speech, initially presenting with angry mood and affect, stating that people withdrawing blood were trying to hurt her, patient then started laughing inappropriately, stating this is her happy day of the week, continues to have loose association , thought process and speech tangential, not goal directed discussed with pt adding seroquel she refused, discussed increasing lithium according to lithium level to be obtained today, pt advised about importance of good hydration and avoiding the heat while on lithium pt needs frequent redirection and reassurance by staff, denied any current command hallucinations, denied suicidal or homicidal ideation Medical Problems: multiple inpatient hospitalizations with partial compliance DSM 5 Symptoms Update: bipolar I disorder MRE mixed severe with psychotic features Mental Status Examination - Cognitive Function Orientation: Person, Place Attention: Poor Concentration: Poor Association: Loose Decription of patient's judgement and insights: partial insight , poor judgment - Mood Mood: Euphoric Additional comments: labile - Affect Additional comments: labile - Speech Speech: Loud, Pressured - Formal Thought Process Formal Thought Process: Delusions (pt denied command hallucinations), Paranoia, Loosening of associations Psychotic Thoughts and Behaviors: pt paranoid towards staff - Suicidal Ideation Suicidal Ideation: No - Homicidal Ideation Homicidal Ideation: No Goal/Treatment Plan - Goal/Treatment Plan Need for Continued Stay: Severe depression anxiety, Discharge may exacerbated symptoms Progress Toward Problem(s) and Goals/Treatment Plan: start lithium 300mg daily and 400mg qhs, follow up on lithium level and uptitrate accordingly haldol dec IM last dose given 08/22/17 seroquel 25mg qhs follow up on psychopharmacological effects and side effect profile social science teacher arranging meeting with PACT on 08/23/17 supportive therapy
[2017-08-22] MEDS: Multivitamin With Minerals Tab PO SCH (17:44)
[2017-08-22] MEDS: Lithium Carbonate 150 MG CAP PO SCH (21:00)
[2017-08-23] MEDS: Levothyroxine 88 MCG TAB PO SCH (06:41)
[2017-08-23] MEDS: Lithium Carbonate 150 MG CAP PO SCH ×2 (09:06→21:16)
[2017-08-23] MEDS: Multivitamin With Minerals Tab PO SCH (09:06)
--- NOTE | 2017-08-23 13:39 | PCM.PYCHPN ---
Psychiatric Progress Note - Psychiatric Progress Note Patient seen today, length of contact: pt evaluated discussed with team chart reviewed Patient Chief Complaint: Hans upset they took my chocolate milk Problems Identified/Issues Discussed: pt on evaluation, continues to be labile, loud with pressured speech, thought process tangential with paranoid delusions toward staff needs frequent re direction , refusing medications other than lithium, discussed with patient adding klonopin 0.25mg and also increasing lithium with follow up on lihium level pt denied any current suicidal or homicidal ideation , denied perceptual disturbances Medical Problems: multiple inpatient hospitalizations with partial compliance DSM 5 Symptoms Update: bipolar I mixed severe with psychotic features Medication Change: Yes (start klonopin 0.25mg tid) Medical Record Reviewed: Yes Mental Status Examination - Cognitive Function Orientation: Person, Place Attention: Poor Concentration: Poor Association: Loose Decription of patient's judgement and insights: partial insight , poor judgment - Mood Mood: Euphoric - Speech Speech: Loud, Pressured - Formal Thought Process Formal Thought Process: Delusions (pt denied command hallucinations), Paranoia, Loosening of associations Psychotic Thoughts and Behaviors: pt paranoid towards staff - Suicidal Ideation Suicidal Ideation: No - Homicidal Ideation Homicidal Ideation: No Goal/Treatment Plan - Goal/Treatment Plan Need for Continued Stay: Severe depression anxiety, Discharge may exacerbated symptoms Progress Toward Problem(s) and Goals/Treatment Plan: increase lithium 450mg bid follow up on lithium level and uptitrate accordingly , start klonopin 0.25mg tid haldol dec IM last dose given 08/22/17 seroquel 25mg qhs follow up on psychopharmacological effects and side effect profile psychosocial rehabilitation counselor arranging meeting with PACT on 08/23/17 supportive therapy
[2017-08-24] MEDS: Levothyroxine 88 MCG TAB PO SCH (06:00)
[2017-08-24] MEDS: Multivitamin With Minerals Tab PO SCH (08:33)
[2017-08-24] MEDS: Lithium Carbonate 150 MG CAP PO SCH ×2 (08:34→21:16)
[2017-08-24 08:46] VITALS: RESP 18
--- NOTE | 2017-08-24 12:24 | CARD ---
APPROVED REPORT EKG Measurement Heart [id number] <Conclusion> Normal sinus rhythm Normal ECG
--- NOTE | 2017-08-24 12:42 | PCM.PYCHPN ---
Psychiatric Progress Note - Psychiatric Progress Note Patient seen today, length of contact: pt evaluated discussed with team chart reviewed Patient Chief Complaint: I want to go to work Problems Identified/Issues Discussed: pt on evaluation, cpresenting with irritable mood and affect reporting worried about her job and requesting to be discharged discussed with patient the need for further stabilization as she continues to have labile affect, speech less pressured but continues to be ove rproductive pt denied any current suicidal or homicidal ideation , denied perceptual disturbances Medical Problems: multiple inpatient hospitalizations with partial compliance DSM 5 Symptoms Update: bipolar I disorder mixed severe Medication Change: No Medical Record Reviewed: Yes Mental Status Examination - Cognitive Function Orientation: Person, Place Attention: Poor Concentration: Poor Association: Loose Fund of Knowledge: Poor Decription of patient's judgement and insights: partial insight , poor judgment - Mood Mood: Anxious - Affect Additional comments: labile - Speech Speech: Loud Additional comments: over productive - Formal Thought Process Formal Thought Process: Paranoia, Loosening of associations Psychotic Thoughts and Behaviors: pt less paranoid - Suicidal Ideation Suicidal Ideation: No - Homicidal Ideation Homicidal Ideation: No Goal/Treatment Plan - Goal/Treatment Plan Need for Continued Stay: Severe depression anxiety, Discharge may exacerbated symptoms Progress Toward Problem(s) and Goals/Treatment Plan: lithium 450mg bid , ;ithium level 0.9, follow up on lithium level on 08/27/17 , start klonopin 0.25mg tid prn for anxiety haldol dec IM last dose given 08/22/17 seroquel 25mg qhs follow up on psychopharmacological effects and side effect profile forensic social worker arranging meeting with PACT on 08/23/17 supportive therapy
[2017-08-24] MEDS: Alum-Mag Hydrox-Simethicone Susp (30 mL) PO PRN (21:46)
[2017-08-25] MEDS: Levothyroxine 88 MCG TAB PO SCH (06:32)
[2017-08-25] MEDS: Multivitamin With Minerals Tab PO SCH ×2 (08:35→08:36)
[2017-08-25] MEDS: Lithium Carbonate 150 MG CAP PO SCH ×2 (08:37→21:04)
--- NOTE | 2017-08-25 09:52 | PCM.PYCHPN ---
Psychiatric Progress Note - Psychiatric Progress Note Patient seen today, length of contact: pt evaluated discussed with team chart reviewed Patient Chief Complaint: pt has remained very agitated,labile and irrtible wanting to leave AMA and remains with poor insight and poor judgement and need further stabilization . Medication Change: No Medical Record Reviewed: Yes Mental Status Examination - Cognitive Function Orientation: Person, Place Attention: Poor Concentration: Poor Association: Loose Fund of Knowledge: Poor - Mood Mood: Anxious - Speech Speech: Loud - Formal Thought Process Formal Thought Process: Paranoia, Loosening of associations - Suicidal Ideation Suicidal Ideation: No - Homicidal Ideation Homicidal Ideation: No Goal/Treatment Plan - Goal/Treatment Plan Need for Continued Stay: Severe depression anxiety, Discharge may exacerbated symptoms Progress Toward Problem(s) and Goals/Treatment Plan: will continue to further stabilize the mood and agitation with meds . D/c plans as per dr cohen
[2017-08-26] MEDS: Levothyroxine 88 MCG TAB PO SCH (05:50)
[2017-08-26] MEDS: Multivitamin With Minerals Tab PO SCH (08:29)
[2017-08-26] MEDS: Lithium Carbonate 150 MG CAP PO SCH ×2 (08:53→21:07)
--- NOTE | 2017-08-26 17:03 | PCM.PYCHPN ---
Psychiatric Progress Note - Psychiatric Progress Note Patient seen today, length of contact: pt evaluated discussed with team chart reviewed Patient Chief Complaint: pt has remained very inappropriate and bizarre in thinking and very agitated, labile and irrtible wanting to leave AMA and remains with poor insight and poor judgement and need further stabilization . Medication Change: No Medical Record Reviewed: Yes Mental Status Examination - Cognitive Function Orientation: Person, Place Attention: Poor Concentration: Poor Association: Loose Fund of Knowledge: Poor - Mood Mood: Anxious - Speech Speech: Loud - Formal Thought Process Formal Thought Process: Paranoia, Loosening of associations - Suicidal Ideation Suicidal Ideation: No - Homicidal Ideation Homicidal Ideation: No Goal/Treatment Plan - Goal/Treatment Plan Need for Continued Stay: Severe depression anxiety, Discharge may exacerbated symptoms Progress Toward Problem(s) and Goals/Treatment Plan: will continue to further stabilize the mood and agitation with meds . D/c plans as per dr cohen
--- NOTE | 2017-08-26 20:51 | CON ---
DATE: CHIEF COMPLAINT: Fatigue. HISTORY OF PRESENT ILLNESS: This is a 57-year-old female who complains of increasing fatigue over the last month. She also complains of on and off numbness and tingling of her feet. She denies any chest pain, shortness of breath, or palpitations. PAST MEDICAL HISTORY: Diabetes with neuropathy, hypothyroidism, hypertension, gastritis, osteoarthritis, restless legs syndrome, bipolar disorder, proteinuria, and hypercholesterolemia. ALLERGIES: NO KNOWN DRUG ALLERGIES. MEDICATIONS: Losartan 50 mg daily, Crestor 10 mg daily, Levoxyl 88 mcg daily, Citracal plus D 600 mg/500 international units one tablet twice daily, omeprazole 20 mg daily hour before breakfast, metformin one tablet twice a day after p.m. meal, Levemir FlexTouch 10 units subcutaneously q.a.m., and Lyrica 75 mg twice daily. OBSTETRICAL HISTORY: G1, F1, P0, A0, L1. FAMILY HISTORY: Father with a history of diabetes. Mother secondary to colon cancer. The patient has 4 brothers and 1 sister who are healthy. SOCIAL HISTORY: The patient does not smoke cigarettes or consume alcohol. REVIEW OF SYSTEMS: Unremarkable except as mentioned above. PHYSICAL EXAMINATION: GENERAL: This is a 57-year-old pleasant and cooperative female. VITAL SIGNS: Blood pressure 132/80, pulse rate 64 beats per minute, respirations 16 respirations per minute, and temperature 98.4 Fahrenheit. SKIN: Warm and dry. HEENT: Atraumatic and normocephalic. Anicteric sclerae. Pupils equal, round, and reactive to light and accommodation. NECK: Supple. No jugular venous distention. No lymphadenopathy. LUNGS: Clear to auscultation. HEART: Regular, S1 and S2. No murmur. ABDOMEN: Positive bowel sounds, soft, and nontender. EXTREMITIES: No cyanosis, clubbing, or edema. IMPRESSION: 1. Diabetes with neuropathy. 2. Hypertension. 3. Hypercholesterolemia. 4. Hypothyroidism. 5. Gastritis. 6. Bipolar disorder. PLAN: CBC, complete metabolic panel as well as hemoglobin A1c will be ordered. The patient will continue medications as mentioned above. Fingersticks daily before breakfast have been ordered. The patient will continue with a 1600 ADA diet. TSH will also be ordered in the a.m. Delilah Chang MD [facility] # [id number]
[2017-08-27] MEDS: Levothyroxine 88 MCG TAB PO SCH (06:02)
[2017-08-27] MEDS: Lithium Carbonate 150 MG CAP PO SCH ×2 (09:05→21:27)
[2017-08-27] MEDS: Multivitamin With Minerals Tab PO SCH (09:06)
--- NOTE | 2017-08-27 12:04 | PCM.PYCHPN ---
Psychiatric Progress Note - Psychiatric Progress Note Patient seen today, length of contact: pt evaluated discussed with team chart reviewed Patient Chief Complaint: I do not want to see those people any more they are not doing the right thing for me Problems Identified/Issues Discussed: pt evaluated, speech less pressured, but continues to be over productive , pt presenting with paranoid delusions, reporting that PACT team are against her, not helping her , presenting with irritable affect but less labile, lithium level noted to be 0.9 , pt senied any current side effects, no diarrhea no dizziness and no observed tremors with the increase in lithium discussed with pt importance of compliance with medications pt denied any current suicidal or homicidal ideation Medical Problems: multiple inpatient hospitalizations with partial compliance DSM 5 Symptoms Update: bipolar I disorder MRE mixed severe with psychotic features Medication Change: No Medical Record Reviewed: Yes Mental Status Examination - Cognitive Function Orientation: Person, Place Attention: WNL Concentration: Poor Association: WNL Fund of Knowledge: Poor Decription of patient's judgement and insights: poor insight and judgment - Mood Mood: Anxious - Affect Additional comments: irritable - Speech Speech: Loud - Formal Thought Process Formal Thought Process: Paranoia, Circumstantial Psychotic Thoughts and Behaviors: paranoid delusions - Suicidal Ideation Suicidal Ideation: No - Homicidal Ideation Homicidal Ideation: No Goal/Treatment Plan - Goal/Treatment Plan Need for Continued Stay: Severe depression anxiety, Discharge may exacerbated symptoms Progress Toward Problem(s) and Goals/Treatment Plan: lwill change lithium to 900mg daily to ensure compliance as being monitored by PACT TEAM haldol dec IM last dose given 08/22/17, COGENTIN 0.5MG seroquel 25mg qhs follow up on psychopharmacological effects and side effect profile social work manager arranging meeting with PACT supportive therapy
[2017-08-27] MEDS: Alum-Mag Hydrox-Simethicone Susp (30 mL) PO PRN (18:02)
[2017-08-28] MEDS: Levothyroxine 88 MCG TAB PO SCH (06:37)
[2017-08-28] MEDS: Multivitamin With Minerals Tab PO SCH (08:40)
[2017-08-28] MEDS: Lithium Carbonate 150 MG CAP PO SCH (08:42)
[2017-08-28 09:17] VITALS: BP 120/56; PULSE 61; TEMP 97
== END 2017-08-28 14:43 | disposition home or self-care (01) | DRG 885 ==
LOC: H.ER 12:30 → H.ERHOLD 15:49 → H.PSYCH 17:32
PROVIDERS: ADMIT Psychiatry & Neurology Psychiatry; ATTEND Psychiatry & Neurology Psychiatry
PROC: GZHZZZZ Group Psychotherapy (ICD-10-PCS; principal; 2017-08-20)
PROC: GZ58ZZZ Individual Psychotherapy, Cognitive-Behavioral (ICD-10-PCS; 2017-08-20)
DX: F31.64 Bipolar disorder, current episode mixed, severe, with psychotic features (principal); E11.40 Type 2 diabetes mellitus with diabetic neuropathy, unspecified; F41.9 Anxiety disorder, unspecified; E03.9 Hypothyroidism, unspecified; I10 Essential (primary) hypertension; K29.70 Gastritis, unspecified, without bleeding; E78.00 Pure hypercholesterolemia, unspecified; G25.81 Restless legs syndrome; M19.90 Unspecified osteoarthritis, unspecified site; Z79.84 Long term (current) use of oral hypoglycemic drugs

== ENCOUNTER 2017-09-22 18:27 | Emergency (ER) | payer MEDICARE, OTHER ==
[2017-09-22 18:31] VITALS: BP 172/82; PULSE 69; RESP 20; O2SAT 99
--- NOTE | 2017-09-22 19:20 | ED PDOC ---
Lower Extremity Pain/Injury Time Seen by Provider: 09/22/17 18:41 Chief Complaint (Nursing): Lower Extremity Problem/Injury Chief Complaint (Provider): left leg pain History Per: Patient, EMS Additional Complaint(s): 57 y/o female presents with pain to left leg pain status post trip and fall yesterday. Patient has ecchymosis to left thigh region. She states she took Tylenol which did help the pain. She arrives via ambulance for further evaluation. Past Medical History Reviewed: Historical Data, Nursing Documentation, Vital Signs Vital Signs: Last Vital Signs Temp 98.3 F 09/22/17 18:29 Pulse 69 09/22/17 18:29 Resp 20 09/22/17 18:29 BP 172/82 H 09/22/17 18:29 Pulse Ox 99 09/22/17 18:29 - Medical History PMH: Anxiety, Arthritis, Bipolar Disorder, Depression, Diabetes, HTN, Hypercholesterolemia, Hypothyroidism, Schizophrenia (schizoaffective) - Surgical History Surgical History: Cholecystectomy, Hernia Repair (umbilical hernia repair) - Family History Family History: States: No Known Family Hx - Living Arrangements Living Arrangements: With Family - Social History Current smoker - smoking cessation education provided: No Alcohol: None Drugs: Denies - Home Medications Home Medications: Ambulatory Orders Medication Instructions Recorded Levothyroxine [Synthroid] 88 mcg PO DAILY 08/01/17 Losartan [Cozaar] 50 mg PO DAILY 08/01/17 metFORMIN [glucOPHAGE] 500 mg PO BID 08/01/17 Ammonium Lactate 12% [Lac-Hydrin 1 ea EXT PRN PRN 08/20/17 12% Cream (140 g)] Morales/Vit B12/Folic Acid/Vit B6 1 each PO DAILY 08/20/17 [Folic Acid-Vit B6-Vit B12 Tab] Famotidine [Pepcid] 20 mg PO DAILY 08/20/17 Lecithin 1,200 mg PO DAILY 08/20/17 Pregabalin [Lyrica] 75 mg PO DAILY 08/20/17 Benztropine [Cogentin] 0.5 mg PO Q12 30 Days #60 tab 08/27/17 [place] Carbonate [[place] 450 mg PO DAILY cap 08/27/17 Carbonate 150MG] [place] Carbonate [[place] 450 mg PO HS cap 08/27/17 Carbonate 150MG] Magnesium Hydroxide [Milk Of 30 ml PO HS PRN udc 08/27/17 Magnesia] Acetaminophen [Tylenol 325mg tab] 650 mg PO Q4 PRN #1 bottle 09/22/17 - Allergies Allergies/Adverse Reactions: Allergies Allergy/AdvReac Type Severity Reaction Status Date / Time tomato Allergy RASH Verified 09/22/17 18:29 Wells Criteria for PE - Wells Criteria for Pulmonary Embolism Clinical Signs and Symptoms of DVT: No P.E is #1 Diagnosis, or Equally Likely: No Heart Rate >100: No Immobilization at least 3 days;Surgery previous 4 weeks: No Previous, objectively diagnosed PE or DVT: No Hemoptysis: No Malignancy w/treatment within 6 months, or palliative: No Total Score: 0 Review of Systems ROS Statement: Except As Marked, All Systems Reviewed And Found Negative Musculoskeletal: Positive for: Other (left leg injury) Physical Exam - Reviewed Nursing Documentation Reviewed: Yes Vital Signs Reviewed: Yes - Physical Exam Appears: Positive for: Well, Non-toxic, No Acute Distress Skin: Positive for: Normal Color. Negative for: Rash Eye Exam: Positive for: Normal appearance Cardiovascular/Chest: Positive for: Regular Rate, Rhythm Respiratory: Positive for: Normal Breath Sounds. Negative for: Respiratory Distress Extremity: Positive for: Other (Contusion noted to left anterior thigh, full range of motion left knee with pain, nontender left hip region) Neurologic/Psych: Positive for: Alert, Oriented, Gait (steady) - ECG O2 Sat by Pulse Oximetry: 99 Pulse Ox Interpretation: Normal - Other Rad Left knee and femur x-ray X-Ray: Interpreted by Me, Viewed By Me X-Ray Interpretation: no fx, no dis Medical Decision Making Medical Decision Makin57 y/o F with left leg pain Plan: PO tylenol X-ry left femur and left knee Patient aware of x-ray results, all questions answered. Tylenol prescription provided. Patient was instructed to follow-up with primary doctor. Disposition - Clinical Impression Clinical Impression: Contusion of leg, Knee pain - Patient ED Disposition Is Patient to be Admitted: No Counseled Patient/Family Regarding: Studies Performed, Diagnosis, Need For Followup, Rx Given - Disposition Referrals: [facility] [Outside] Disposition: Routine/Home Disposition Time: 19:39 Condition: STABLE Additional Instructions: Ice, rest and elevate affected area. Take rx meds as directed as needed for pain. Follow up with primary care doctor. Prescriptions: Acetaminophen [Tylenol 325mg tab] 650 mg PO Q4 PRN #1 bottle PRN Reason: Pain, Moderate (4-7) Instructions: Contusion (DC), Knee Pain Forms: [facility] (Ukrainian)
[2017-09-22 20:05] VITALS: TEMP 97.8
--- NOTE | 2017-09-23 08:43 | RAD ---
PROCEDURE: Left Femur Radiographs. HISTORY: trauma COMPARISON: None. TECHNIQUE: AP and Lateral Radiographs of the left femur. FINDINGS: FEMUR: No acute fracture. SOFT TISSUES: Normal. OTHER FINDINGS: None. IMPRESSION: Unremarkable radiographs of the left femur.
--- NOTE | 2017-09-23 08:46 | RAD ---
PROCEDURE: Left Knee Radiographs. HISTORY: Pain. COMPARISON: None. FINDINGS: BONES: No acute fracture. JOINTS: Unremarkable. JOINT EFFUSION: None. OTHER FINDINGS: None. IMPRESSION: No demonstrated fracture or dislocation.
== END 2017-09-22 20:05 | disposition home or self-care (01) ==
LOC: H.ER 18:27
DX: S70.12XA Contusion of left thigh, initial encounter (principal); M25.569 Pain in unspecified knee; W01.0XXA Fall on same level from slipping, tripping and stumbling without subsequent striking against object, initial encounter; E11.9 Type 2 diabetes mellitus without complications; Z86.59 Personal history of other mental and behavioral disorders; I10 Essential (primary) hypertension; Z79.84 Long term (current) use of oral hypoglycemic drugs; E03.9 Hypothyroidism, unspecified; E78.00 Pure hypercholesterolemia, unspecified

== ENCOUNTER 2017-09-29 22:20 | Emergency (ER) | payer MEDICAID, MEDICARE ==
[2017-09-29 22:29] VITALS: O2SAT 99
--- NOTE | 2017-09-29 22:39 | ED PDOC ---
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 HERE TODAY WITH SON FOR EVALUATION OF LEFT ARM ANTECUBITAL PAIN NOTED TODAY AFTER HAVING BLOOD DRAWN YESTERDAY.) Past Medical History Reviewed: Historical Data, Nursing Documentation, Vital Signs Vital Signs: Last Vital Signs Temp 98.7 F 09/29/17 22:27 Pulse 52 L 09/29/17 22:27 Resp 16 09/29/17 22:27 BP 159/86 H 09/29/17 22:27 Pulse Ox 99 09/29/17 22:27 - Medical History PMH: Anxiety, Arthritis, Bipolar Disorder, Depression, Diabetes, HTN, Hypercholesterolemia, Hyperthyroidism, Hypothyroidism, Schizophrenia ( schizoaffective) Denies: Hepatitis, HIV, Chronic Kidney Disease, Seizures, Sexually Transmitted Disease - Surgical History Surgical History: Cholecystectomy, Hernia Repair (umbilical hernia repair) - Family History Family History: States: Unknown Family Hx - Immunization History Hx Tetanus Toxoid Vaccination: Yes Hx Influenza Vaccination: Yes Hx Pneumococcal Vaccination: Yes - Home Medications Home Medications: Ambulatory Orders Medication Instructions Recorded Levothyroxine [Synthroid] 88 mcg PO DAILY 08/01/17 Losartan [Cozaar] 50 mg PO DAILY 08/01/17 metFORMIN [glucOPHAGE] 500 mg PO BID 08/01/17 Ammonium Lactate 12% [Lac-Hydrin 1 ea EXT PRN PRN 08/20/17 12% Cream (140 g)] [place]ales/Vit B12/Folic Acid/Vit B6 1 each PO DAILY 08/20/17 [Folic Acid-Vit B6-Vit B12 Tab] Famotidine [Pepcid] 20 mg PO DAILY 08/20/17 Lecithin 1,200 mg PO DAILY 08/20/17 Pregabalin [Lyrica] 75 mg PO DAILY 08/20/17 Benztropine [Cogentin] 0.5 mg PO Q12 30 Days #60 tab 08/27/17 [place] Carbonate [[place] 450 mg PO DAILY cap 08/27/17 Carbonate 150MG] [place] Carbonate [[place] 450 mg PO HS cap 08/27/17 Carbonate 150MG] Magnesium Hydroxide [Milk Of 30 ml PO HS PRN udc 08/27/17 Magnesia] Acetaminophen [Tylenol 325mg tab] 650 mg PO Q4 PRN #1 bottle 09/22/17 - Allergies Allergies/Adverse Reactions: Allergies Allergy/AdvReac Type Severity Reaction Status Date / Time tomato Allergy RASH Verified 09/22/17 18:29 Review of Systems ROS Statement: Except As Marked, All Systems Reviewed And Found Negative Physical Exam - Reviewed Nursing Documentation Reviewed: Yes Vital Signs Reviewed: Yes - Physical Exam Appears: Positive for: Well, Non-toxic, No Acute Distress Head Exam: Positive for: ATRAUMATIC, NORMAL INSPECTION, NORMOCEPHALIC Skin: Positive for: Normal Color, Warm, DRY Eye Exam: Positive for: EOMI, Normal appearance, PERRL ENT: Positive for: Normal ENT Inspection Neck: Positive for: Normal, Painless ROM Cardiovascular/Chest: Positive for: Regular Rate, Rhythm Respiratory: Positive for: CNT, Normal Breath Sounds Gastrointestinal/Abdominal: Positive for: Normal Exam, Soft Back: Positive for: Normal Inspection Extremity: Positive for: Normal ROM, Tenderness (INDURATION NOTED LEFT ANTECUBITAL REGION.) Neurologic/Psych: Positive for: Alert, Oriented - ECG O2 Sat by Pulse Oximetry: 99 - Progress ED Course And Treament: duplex upper extremity: negative for deep or superficial thrombosis Disposition - Clinical Impression Clinical Impression: Arm pain, Contusion - Patient ED Disposition Is Patient to be Admitted: No - Disposition Disposition: Routine/Home Disposition Time: 00:00 Condition: STABLE Instructions: Contusion (DC) Forms: [employer] (Burmese)
[2017-09-30 00:10] VITALS: BP 130/78; PULSE 76; RESP 18; TEMP 98
--- NOTE | 2017-09-30 00:23 | US ---
EXAM: US Duplex Left Upper Extremity Veins EXAM DATE/TIME: 09/29/2017 10:35 PM CLINICAL HISTORY: 57 years old, female; left arm pain for 2 days Additional info: R/O superficial thrombophlebitis TECHNIQUE: Real-time duplex ultrasound scan of the left upper extremity veins integrating B-mode two-dimensional vascular structure, Doppler spectral analysis, color flow Doppler imaging and compression. COMPARISON: There are no prior studies for comparison. FINDINGS: Deep veins: Jugular, subclavian, axillary and brachialveins were examined. Superficial basilic and cephalic veins were also imaged. All accessible veins examined are compressible. There are no intraluminal filling defects. There is expected blood flow on Doppler imaging. There is change in waveform with augmentation. Impression: No deep venous thrombosis in the visualized vascular segments of the left upper extremity
== END 2017-09-30 00:10 | disposition home or self-care (01) ==
LOC: H.ER 22:20
DX: M79.602 Pain in left arm (principal); E11.9 Type 2 diabetes mellitus without complications; Z79.84 Long term (current) use of oral hypoglycemic drugs

== ENCOUNTER 2017-11-11 01:28 | Emergency (ER) | payer MEDICARE, OTHER ==
[2017-11-11 01:39] VITALS: RESP 16; TEMP 98.9; O2SAT 99
--- NOTE | 2017-11-11 05:06 | ED PDOC ---
Lower Extremity Pain/Injury Time Seen by Provider: 11/11/17 03:32 Chief Complaint (Nursing): Lower Extremity Problem/Injury Chief Complaint (Provider): Lower Extremity Problem/Injury History Per: Patient History/Exam Limitations: no limitations Onset/Duration Of Symptoms: Days (x 3) Current Symptoms Are (Timing): Still Present Additional Complaint(s): 57 year old female with a history of DM presents to the ED with left knee pain for the last 3 days. Patient tripped and fell, injuring her knee. She also complains of intermittent left foot pain. Otherwise: (-) numbness, (-)weakness, (-) other injury. PMD: Dr. Delilah Chang - Knee Description Of Injury: Fell Past Medical History Reviewed: Historical Data, Nursing Documentation, Vital Signs Vital Signs: Last Vital Signs Temp 98.9 F 11/11/17 01:36 Pulse 61 11/11/17 01:36 Resp 16 11/11/17 01:36 BP 199/67 H 11/11/17 01:36 Pulse Ox 99 11/11/17 01:36 - Medical History PMH: Anxiety, Arthritis, Bipolar Disorder, Depression, Diabetes, HTN, Hypercholesterolemia, Hyperthyroidism, Hypothyroidism, Schizophrenia ( schizoaffective) Denies: Hepatitis, HIV, Chronic Kidney Disease, Seizures, Sexually Transmitted Disease - Surgical History Surgical History: Cholecystectomy, Hernia Repair (umbilical hernia repair) - Family History Family History: States: Unknown Family Hx - Immunization History Hx Tetanus Toxoid Vaccination: Yes Hx Influenza Vaccination: Yes Hx Pneumococcal Vaccination: Yes - Home Medications Home Medications: Ambulatory Orders Medication Instructions Recorded Levothyroxine [Synthroid] 88 mcg PO DAILY 08/01/17 Losartan [Cozaar] 50 mg PO DAILY 08/01/17 metFORMIN [glucOPHAGE] 500 mg PO BID 08/01/17 Ammonium Lactate 12% [Lac-Hydrin 1 ea EXT PRN PRN 08/20/17 12% Cream (140 g)] [place]ales/Vit B12/Folic Acid/Vit B6 1 each PO DAILY 08/20/17 [Folic Acid-Vit B6-Vit B12 Tab] Famotidine [Pepcid] 20 mg PO DAILY 08/20/17 Lecithin 1,200 mg PO DAILY 08/20/17 Pregabalin [Lyrica] 75 mg PO DAILY 08/20/17 Benztropine [Cogentin] 0.5 mg PO Q12 30 Days #60 tab 08/27/17 [place] Carbonate [[place] 450 mg PO DAILY cap 08/27/17 Carbonate 150MG] [place] Carbonate [[place] 450 mg PO HS cap 08/27/17 Carbonate 150MG] Magnesium Hydroxide [Milk Of 30 ml PO HS PRN udc 08/27/17 Magnesia] Acetaminophen [Tylenol 325mg tab] 650 mg PO Q4 PRN #1 bottle 09/22/17 - Allergies Allergies/Adverse Reactions: Allergies Allergy/AdvReac Type Severity Reaction Status Date / Time tomato Allergy RASH Verified 09/22/17 18:29 Review of Systems ROS Statement: Except As Marked, All Systems Reviewed And Found Negative Musculoskeletal: Positive for: Leg Pain (left knee), Foot Pain (left) Physical Exam - Physical Exam Comments: GENERAL APPEARANCE: Patient is awake, alert, oriented x 3, in no acute distress. SKIN: Warm, dry; (-) cyanosis. LOWER EXTREMITY: Knee: (+) mild tenderness, (-) edema, (-) laxity, (+) FROM. Rest of the lower extremity is non-tender without deformity. CARDIOVASCULAR: (+) distal pulse, (+) distal sensation intact. - ECG O2 Sat by Pulse Oximetry: 99 (RA) Pulse Ox Interpretation: Normal Medical Decision Making Medical Decision Makin:32 Initial Plan: --Left knee x-ray --Tylenol 650 mg PO Repeat 179. Patient admits to h/o HTN. XR L knee : no fracture, no dislocation, as read by TONI. Patient advised that today's XR reading is preliminary and final radiology reading will be performed in 24 hours, the patient will be contacted for any discrepancies. X-ray results discussed with the patient in great detail. Patient advised that foot pain is likely due to DM neuropathy. Dx of knee contusion d/w the patient. Patient instructed to follow-up with orthopedic referral provided in 1-2 days without fail. Advised to f/u her bp with pmd. Advised to take otc tylenol prn for pain. Rest, ice and elevate the joint. Return to the emergency room at any time for any new or worsening symptoms. Patient states she fully agrees with and understands discharge instructions. States that she agrees with the plan and disposition. Verbalized and repeated discharge instructions and plan. I have given the patient opportunity to ask any additional questions. Scribe Attestation: Documented by Mary Smith, acting as a scribe for Estelle Crouch PA-C Provider Scribe Attestation: All medical record entries made by the Scribe were at my direction and personally dictated by me. I have reviewed the chart and agree that the record accurately reflects my personal performance of the history, physical exam, medical decision making, and the department course for this patient. I have also personally directed, reviewed, and agree with the discharge instructions and disposition. Disposition - Clinical Impression Clinical Impression: Knee contusion - Patient ED Disposition Is Patient to be Admitted: No Counseled Patient/Family Regarding: Studies Performed, Diagnosis, Need For Followup - Disposition Referrals: Kike Gonzalez III, MD [Staff Provider] - Disposition: Routine/Home Disposition Time: 05:00 Condition: STABLE Additional Instructions: Thank you for letting us take care of you today. You were treated for knee contusion. The emergency medical care you received today was directed towards the acute presenting symptoms. Rest, ice and elevate, take tylenol for pain. It may take several days for your symptoms to resolve. Return to the Emergency Department at any time if symptoms worsen, do not improve, or if any other problems arise. Please contact your doctor in 2 days for re-evaluation and follow up / or call one of the physicians/clinics you have been referred to that are listed on the Patient Visit Information form that is included in your discharge packet. Bring any paperwork you were given at discharge with you along with any medications to your follow up visit. Our treatment cannot replace ongoing medical care by a primary care provider (PCP) outside of the emergency department. Thank you for allowing the [facility] team to be part of your care today. If you had an X-Ray : A Radiologist will review the ED reading if any change in treatment is needed we will contact you. Instructions: Contusion (DC) Forms: [employer] (Montenegrin) - PA / CUSTOMS ENTRY WRITER / Resident Statement MD/DO has reviewed & agrees with the documentation as recorded.
--- NOTE | 2017-11-11 05:08 | ED PDOC ---
Lower Extremity Pain/Injury Time Seen by Provider: 11/11/17 03:32 Chief Complaint (Nursing): Lower Extremity Problem/Injury Past Medical History Vital Signs: Last Vital Signs Temp 98.9 F 11/11/17 01:36 Pulse 61 11/11/17 01:36 Resp 16 11/11/17 01:36 BP 199/67 H 11/11/17 01:36 Pulse Ox 99 11/11/17 01:36 - Medical History PMH: Anxiety, Arthritis, Bipolar Disorder, Depression, Diabetes, HTN, Hypercholesterolemia, Hyperthyroidism, Hypothyroidism, Schizophrenia ( schizoaffective) Denies: Hepatitis, HIV, Chronic Kidney Disease, Seizures, Sexually Transmitted Disease - Surgical History Surgical History: Cholecystectomy, Hernia Repair (umbilical hernia repair) - Family History Family History: States: Unknown Family Hx - Immunization History Hx Tetanus Toxoid Vaccination: Yes Hx Influenza Vaccination: Yes Hx Pneumococcal Vaccination: Yes - Home Medications Home Medications: Ambulatory Orders Medication Instructions Recorded Levothyroxine [Synthroid] 88 mcg PO DAILY 08/01/17 Losartan [Cozaar] 50 mg PO DAILY 08/01/17 metFORMIN [glucOPHAGE] 500 mg PO BID 08/01/17 Ammonium Lactate 12% [Lac-Hydrin 1 ea EXT PRN PRN 08/20/17 12% Cream (140 g)] [place]ales/Vit B12/Folic Acid/Vit B6 1 each PO DAILY 08/20/17 [Folic Acid-Vit B6-Vit B12 Tab] Famotidine [Pepcid] 20 mg PO DAILY 08/20/17 Lecithin 1,200 mg PO DAILY 08/20/17 Pregabalin [Lyrica] 75 mg PO DAILY 08/20/17 Benztropine [Cogentin] 0.5 mg PO Q12 30 Days #60 tab 08/27/17 [place] Carbonate [[place] 450 mg PO DAILY cap 08/27/17 Carbonate 150MG] [place] Carbonate [[place] 450 mg PO HS cap 08/27/17 Carbonate 150MG] Magnesium Hydroxide [Milk Of 30 ml PO HS PRN udc 08/27/17 Magnesia] Acetaminophen [Tylenol 325mg tab] 650 mg PO Q4 PRN #1 bottle 09/22/17 - Allergies Allergies/Adverse Reactions: Allergies Allergy/AdvReac Type Severity Reaction Status Date / Time tomato Allergy RASH Verified 09/22/17 18:29 - ECG O2 Sat by Pulse Oximetry: 99 Disposition - Clinical Impression Clinical Impression: Knee contusion - Patient ED Disposition Is Patient to be Admitted: No Counseled Patient/Family Regarding: Studies Performed, Diagnosis, Need For Followup - Disposition Referrals: Kike Gonzalez III, MD [Staff Provider] - Disposition: Routine/Home Disposition Time: 05:00 Condition: STABLE Additional Instructions: Thank you for letting us take care of you today. You were treated for knee contusion. The emergency medical care you received today was directed towards the acute presenting symptoms. Rest, ice and elevate, take tylenol for pain. It may take several days for your symptoms to resolve. Return to the Emergency Department at any time if symptoms worsen, do not improve, or if any other problems arise. Please contact your doctor in 2 days for re-evaluation and follow up / or call one of the physicians/clinics you have been referred to that are listed on the Patient Visit Information form that is included in your discharge packet. Bring any paperwork you were given at discharge with you along with any medications to your follow up visit. Our treatment cannot replace ongoing medical care by a primary care provider (PCP) outside of the emergency department. Thank you for allowing the [facility] team to be part of your care today. If you had an X-Ray : A Radiologist will review the ED reading if any change in treatment is needed we will contact you. Instructions: Contusion (DC) - PA / MINIBUS DRIVER / Resident Statement / has reviewed & agrees with the documentation as recorded.
[2017-11-11 05:19] VITALS: BP 179/89; PULSE 62
--- NOTE | 2017-11-11 09:47 | RAD ---
Date of service: 11/11/2017 PROCEDURE: Left Knee Radiographs. HISTORY: Pain. COMPARISON: None. FINDINGS: BONES: No acute fracture. JOINTS: Unremarkable. JOINT EFFUSION: None. OTHER FINDINGS: None. IMPRESSION: No demonstrated fracture or dislocation.
== END 2017-11-11 05:23 | disposition home or self-care (01) ==
LOC: H.ER 01:28
DX: S80.02XA Contusion of left knee, initial encounter (principal); W19.XXXA Unspecified fall, initial encounter; Y92.89 Other specified places as the place of occurrence of the external cause; E03.9 Hypothyroidism, unspecified; E05.90 Thyrotoxicosis, unspecified without thyrotoxic crisis or storm; E11.9 Type 2 diabetes mellitus without complications; E78.00 Pure hypercholesterolemia, unspecified; I10 Essential (primary) hypertension; Z79.84 Long term (current) use of oral hypoglycemic drugs

== ENCOUNTER 2017-11-17 01:55 | Emergency (ER) | payer MEDICARE, OTHER ==
[2017-11-17 02:08] VITALS: BP 165/81; PULSE 62; RESP 18; TEMP 98.6; O2SAT 99
--- NOTE | 2017-11-25 07:56 | ED PDOC ---
HPI: Psych/Substance Abuse Time Seen by Provider: 11/17/17 02:08 Chief Complaint (Nursing): Psychiatric Evaluation History Per: Patient, EMS History/Exam Limitations: no limitations Onset/Duration Of Symptoms: Days (1) Current Symptoms Are (Timing): Still Present Suicide/Self Injury Attempted (Context): None Modifying Factor(s): None Associated Symptoms: denies: Agitation, Depression, Suicidal Thoughts, Suicidal Plan Involuntary Hold By: None Additional Complaint(s): Patient presenting with EMS for mood swings. Patient denies any complains. Patient denies SI or HI. Past Medical History Reviewed: Historical Data, Nursing Documentation, Vital Signs Vital Signs: Last Vital Signs Temp 98.6 F 11/17/17 02:06 Pulse 62 11/17/17 02:06 Resp 18 11/17/17 02:06 BP 165/81 H 11/17/17 02:06 Pulse Ox 99 11/17/17 02:06 - Medical History PMH: Anxiety, Arthritis, Bipolar Disorder, Depression, Diabetes, HTN, Hypercholesterolemia, Hyperthyroidism, Hypothyroidism, Schizophrenia ( schizoaffective) Denies: Hepatitis, HIV, Chronic Kidney Disease, Seizures, Sexually Transmitted Disease - Surgical History Surgical History: Cholecystectomy, Hernia Repair (umbilical hernia repair) - Family History Family History: States: Unknown Family Hx - Immunization History Hx Tetanus Toxoid Vaccination: Yes Hx Influenza Vaccination: Yes Hx Pneumococcal Vaccination: Yes - Home Medications Home Medications: Ambulatory Orders Medication Instructions Recorded Levothyroxine [Synthroid] 88 mcg PO DAILY 08/01/17 Losartan [Cozaar] 50 mg PO DAILY 08/01/17 metFORMIN [glucOPHAGE] 500 mg PO BID 08/01/17 Morales/Vit B12/Folic Acid/Vit B6 1 each PO DAILY 08/20/17 [Folic Acid-Vit B6-Vit B12 Tab] Famotidine [Pepcid] 20 mg PO DAILY 08/20/17 Lecithin 1,200 mg PO DAILY 08/20/17 Pregabalin [Lyrica] 75 mg PO Q12 08/20/17 [place] Carbonate [[place] 450 mg PO HS cap 08/27/17 Carbonate 150MG] Insulin Detemir [Levemir] 10 unit SC DAILY 11/19/17 [place] Carbonate [[place] 300 mg PO DAILY 11/19/17 Carbonate 150MG] Rosuvastatin Calcium [Crestor] 10 mg PO DAILY 11/19/17 Acetaminophen [Tylenol 325mg tab] 650 mg PO Q6 PRN tab 11/22/17 Atorvastatin [Lipitor] 20 mg PO DAILY tab 11/22/17 LORazepam [Ativan] 0.5 mg PO Q6 PRN tab 11/22/17 [place] Carbonate [[place] 450 mg PO HS cap 11/22/17 Carbonate 150MG] [place] Carbonate [[place] 300 mg PO DAILY cap 11/22/17 Carbonate 300MG] Magnesium Hydroxide [Milk Of 30 ml PO HS PRN udc 11/22/17 Magnesia] traZODone [Desyrel] 25 mg PO HS PRN tab 11/22/17 - Allergies Allergies/Adverse Reactions: Allergies Allergy/AdvReac Type Severity Reaction Status Date / Time tomato Allergy RASH Verified 11/19/17 06:11 Review of Systems ROS Statement: Except As Marked, All Systems Reviewed And Found Negative Psych: Negative for: Anxiety, Depression, Psychosis, Suicidal ideation, Withdrawal Physical Exam - Reviewed Nursing Documentation Reviewed: Yes Vital Signs Reviewed: Yes - Physical Exam Appears: Positive for: Well, Non-toxic, No Acute Distress Head Exam: Positive for: ATRAUMATIC, NORMAL INSPECTION Skin: Positive for: Normal Color, Warm, Dry Eye Exam: Positive for: EOMI Cardiovascular/Chest: Positive for: Regular Rate, Rhythm Respiratory: Positive for: Respiratory Distress Extremity: Positive for: Normal ROM Neurologic/Psych: Positive for: Alert, Oriented, Gait (steady) - ECG O2 Sat by Pulse Oximetry: 99 Medical Decision Making Medical Decision Making: Impression Mood disorder Diff include Bipolar disorder No indications for psychiatric evaluation at this time. Disposition - Clinical Impression Clinical Impression: Mood disorder - Patient ED Disposition Is Patient to be Admitted: No Counseled Patient/Family Regarding: Studies Performed, Diagnosis, Need For Followup - Disposition Referrals: [facility] [Outside] Disposition: Routine/Home Disposition Time: 03:00 Condition: GOOD Additional Instructions: Follow up with your PCP in 2-3 days. Instructions: Bipolar Disorder (DC)
== END 2017-11-17 03:28 | disposition home or self-care (01) ==
LOC: H.ER 01:55
DX: F39 Unspecified mood [affective] disorder (principal)

== ENCOUNTER 2017-11-19 06:02 | Inpatient (IN) | payer MEDICARE, MEDICAID ==
--- NOTE | 2017-11-19 06:38 | ED PDOC ---
HPI: Psych/Substance Abuse Time Seen by Provider: 11/19/17 06:10 Chief Complaint (Nursing): Lower Extremity Problem/Injury Chief Complaint (Provider): psychiatric evaluation History Per: Patient History/Exam Limitations: no limitations Onset/Duration Of Symptoms: Days Current Symptoms Are (Timing): Still Present Additional Complaint(s): 57 year old female with a history of paranoid schizophrenia and bipolar disorder presents to the ED for psychiatric evaluation. Patient states she has delusion and psychosis. Also reports of left knee pain onset for a month due to a fall. Denies homicidal ideation and suicidal ideation. PMD: Dr. Jorgensen (Non [facility] Provider) Past Medical History Reviewed: Historical Data, Nursing Documentation, Vital Signs Vital Signs: Last Vital Signs Temp 98.8 F 11/19/17 06:11 Pulse 60 11/19/17 06:11 Resp 16 11/19/17 06:11 BP 150/79 11/19/17 06:11 Pulse Ox 99 11/19/17 06:11 - Medical History PMH: Anxiety, Arthritis, Bipolar Disorder, Depression, Diabetes, HTN, Hypercholesterolemia, Hyperthyroidism, Hypothyroidism, Schizophrenia ( schizoaffective) Denies: Hepatitis, HIV, Chronic Kidney Disease, Seizures, Sexually Transmitted Disease - Surgical History Surgical History: Cholecystectomy, Hernia Repair (umbilical hernia repair) - Family History Family History: States: Unknown Family Hx - Social History Current smoker - smoking cessation education provided: No Alcohol: None Drugs: Denies - Immunization History Hx Tetanus Toxoid Vaccination: Yes Hx Influenza Vaccination: Yes Hx Pneumococcal Vaccination: Yes - Home Medications Home Medications: Ambulatory Orders Medication Instructions Recorded Levothyroxine [Synthroid] 88 mcg PO DAILY 08/01/17 Losartan [Cozaar] 50 mg PO DAILY 08/01/17 metFORMIN [glucOPHAGE] 500 mg PO BID 08/01/17 [place]/Vit B12/Folic Acid/Vit B6 1 each PO DAILY 08/20/17 [Folic Acid-Vit B6-Vit B12 Tab] Famotidine [Pepcid] 20 mg PO DAILY 08/20/17 Lecithin 1,200 mg PO DAILY 08/20/17 Pregabalin [Lyrica] 75 mg PO Q12 08/20/17 [place] Carbonate [[place] 450 mg PO HS cap 08/27/17 Carbonate 150MG] Insulin Detemir [Levemir] 10 unit SC DAILY 11/19/17 [place] Carbonate [[place] 300 mg PO DAILY 11/19/17 Carbonate 150MG] Rosuvastatin Calcium [Crestor] 10 mg PO DAILY 11/19/17 - Allergies Allergies/Adverse Reactions: Allergies Allergy/AdvReac Type Severity Reaction Status Date / Time tomato Allergy RASH Verified 11/19/17 06:11 Review of Systems ROS Statement: Except As Marked, All Systems Reviewed And Found Negative Musculoskeletal: Positive for: Leg Pain (left knee ) Psych: Negative for: Suicidal ideation (homicidal ideation ) Physical Exam - Reviewed Nursing Documentation Reviewed: Yes Vital Signs Reviewed: Yes - Physical Exam Appears: Positive for: Non-toxic, No Acute Distress Head Exam: Positive for: ATRAUMATIC, NORMAL INSPECTION, NORMOCEPHALIC Skin: Positive for: Normal Color, Warm, Dry Eye Exam: Positive for: EOMI, Normal appearance, PERRL ENT: Positive for: Normal ENT Inspection Neck: Positive for: Normal, Painless ROM, Supple. Negative for: Decreased ROM Cardiovascular/Chest: Positive for: Regular Rate, Rhythm. Negative for: Murmur Respiratory: Positive for: Normal Breath Sounds. Negative for: Decreased Breath Sounds, Wheezing, Respiratory Distress Gastrointestinal/Abdominal: Positive for: Normal Exam, Bowel Sounds, Soft. Negative for: Tenderness, Guarding, Rebound Extremity: Positive for: Normal ROM. Negative for: Tenderness, Pedal Edema, Calf Tenderness Neurologic/Psych: Positive for: Alert, Oriented (x3), Other (laughing inappropriate) - Laboratory Results Result Diagrams: 11/19/17 07:00 11/19/17 07:00 - ECG O2 Sat by Pulse Oximetry: 99 (RA) Pulse Ox Interpretation: Normal Medical Decision Making Medical Decision Making: Time: 632 Initial Impression: psychiatric evaluation Initial Plan: --Crisis Evaluation as Ordered --Knee 3 Views LT [RAD] --Reevaluation Time: 699 Patient will be signed out Dr. Toth by med pending xray and psychiatric clearance (medical clearance for psych eval). Scribe Attestation: Documented by Fermín Grady, acting as a scribe for Ramiro Hernandez MD Provider Scribe Attestation: All medical record entries made by the Scribe were at my direction and personally dictated by me. I have reviewed the chart and agree that the record accurately reflects my personal performance of the history, physical exam, medical decision making, and the department course for this patient. I have also personally directed, reviewed, and agree with the discharge instructions and disposition. Disposition - Clinical Impression Clinical Impression: Bipolar disorder - Patient ED Disposition Is Patient to be Admitted: Transfer of Care - Disposition Disposition: Transfer of Care Disposition Time: 07:00 Condition: STABLE Patient Signed Over To: Emily Toth
[2017-11-19 07:08] LABS: BASO # 0.1 K/uL (0.0-0.2); BASO % 0.6 % (0.0-2.0); EOS # 0.3 K/uL (0.0-0.7); HEMOGLOBIN 12.7 g/dL (12.0-16.0); LYMPH # 2.3 K/uL (1.0-4.3); LYMPH % 24.7 % (20.0-40.0); MEAN CORPUSCULAR HEMOGLOBIN 32.2 pg (27.0-31.0); MEAN CORPUSCULAR HGB CONC 33.6 g/dL (33.0-37.0); MEAN PLATELET VOLUME 7.3 fl (7.2-11.7); MONO # 0.5 K/uL (0.0-0.8); MONO % 5.1 % (0.0-10.0); NEUT # 6.2 K/uL (1.8-7.0); NEUT % 66.6 % (50.0-75.0); RBC 3.94 Mil/uL (3.80-5.20); RED CELL DISTRIBUTION WIDTH 14.5 % (11.5-14.5); WHITE BLOOD COUNT 9.3 K/uL (4.8-10.8)
--- NOTE | 2017-11-19 07:14 | ED PDOC ---
- Laboratory Results Result Diagrams: 11/19/17 07:00 18 07:00 - ECG Interpretation Of ECG: Sinus zac @ 52, no ST-T changes. O2 Sat by Pulse Oximetry: 99 (RA) Pulse Ox Interpretation: Normal - Radiology X-Ray: Interpreted by Ia X-Ray Interpretation: No Acute Disease - Other Rad XR R knee X-Ray: Interpreted by Ia X-Ray Interpretation: No fx. Medical Decision Making Medical Decision Makin:00 --Care endorsed to me pending medical care, left knee x-ray and final disposition. ---- Scribe Attestation: Documented by Mary Smith, acting as a scribe for Emily Toth MD Provider Scribe Attestation: All medical record entries made by the Scribe were at my direction and personally dictated by me. I have reviewed the chart and agree that the record accurately reflects my personal performance of the history, physical exam, medical decision making, and the department course for this patient. I have also personally directed, reviewed, and agree with the discharge instructions and disposition. Disposition - Clinical Impression Clinical Impression: Bipolar disorder - POA Present On Arrival: None - Disposition Referrals: Delilah Chang MD [Primary Care Provider] - Disposition: Admitted as In-Patient Disposition Time: 09:36 Condition: STABLE Forms: [employer] (Amharic)
[2017-11-19 07:20] LABS: SQUAMOUS EPITHIAL 1 /hpf (0-5); URINE BILIRUBIN NEGATIVE (NEGATIVE); URINE BLOOD NEGATIVE (NEGATIVE); URINE CLARITY CLEAR (Clear); URINE COLOR YELLOW (YELLOW); URINE GLUCOSE (UA) NEG (Normal); URINE LEUKOCYTE ESTERASE MOD Leu/uL (Negative); URINE PROTEIN NEGATIVE (NEGATIVE); URINE UROBILINOGEN 0.2-1.0 mg/dL (0.2-1.0)
[2017-11-19 07:21] LABS: ACETAMINOPHEN < 10.0 ug/ml (10.0-30.0); BLOOD UREA NITROGEN 12 mg/dl (7-17); CALCIUM 9.8 mg/dL (8.4-10.2); GFR AFRICAN-AMERICAN > 60; GFR NON-AFRICAN AMERICAN > 60; SALICYLATE < 1.0 mg/dl
[2017-11-19 07:45] LABS: BARBITURATES, UR NEGATIVE (NEGATIVE); BENZODIAZEPINES, UR NEGATIVE (NEGATIVE); OPIATES, UR NEGATIVE (NEGATIVE); PHENCYCLIDINE, UR NEGATIVE (NEGATIVE)
--- NOTE | 2017-11-19 09:00 | CARD ---
APPROVED REPORT Date of service: 11/19/2017 EKG Measurement Heart [id number] <Conclusion> Sinus bradycardia Otherwise normal ECG
[2017-11-19] MEDS ORDERED: Alum-Mag Hydrox-Simethicone Susp (30 mL) PO PRN (12:19)
[2017-11-19] MEDS ORDERED: Bismuth Subsalicylate 262 mg/15 ml Sus (240 ml) PO PRN (12:19)
[2017-11-19] MEDS ORDERED: Magnesium Hydroxide Susp 30 ml UD PO PRN (12:19)
--- NOTE | 2017-11-19 12:53 | RAD ---
Date of service: 11/19/2017 HISTORY: Medical clearance COMPARISON: 08/20/2017 FINDINGS: LUNGS: No active pulmonary disease. PLEURA: No significant pleural effusion identified, no pneumothorax apparent. CARDIOVASCULAR: No radiographic findings to suggest acute or significant cardiovascular disease. OSSEOUS STRUCTURES: No significant abnormalities. VISUALIZED UPPER ABDOMEN: Normal. OTHER FINDINGS: None. IMPRESSION: No active disease. No significant interval change compared to the prior examination(s).
--- NOTE | 2017-11-19 12:58 | RAD ---
Date of service: 11/19/2017 PROCEDURE: Left Knee Radiographs. HISTORY: Pain. No history of recent/ related trauma provided COMPARISON: 11/11/2017 left knee. FINDINGS: BONES: Normal. No fracture. JOINTS: Normal. No osteoarthritis. JOINT EFFUSION: None. OTHER FINDINGS: None. IMPRESSION: No acute findings related to/accounting for the clinical presentation. No significant interval change compared to the prior examination(s).
--- NOTE | 2017-11-19 14:08 | PCM.PSYCH ---
Initial Psychiatric Evaluation - Initial Psychiatric Evaluation Type of Admission: Voluntary Legal Status: Capacity Chief Complaint (in patient's own words): I am fighting with my son all the time Patient's Reaction to Hospitalization: pt requested help History of Present Illness and Precipitating Events: pt is 57 ys old female with previous diagnosis of bipolar disorder, pt reportedly partially compliant with medications,pt started to experience labile mood and affect, became increasingly argumentative with her son , pt also noticed to be internally preoccupied , laughing in appropriately, brought to ER for evaluation, pt reported that she has been experiencing passive suicidal ideation , feeling unstable on her current medication, denied command hallucinations denied homicidal ideation on the unit presenting with labile affect, laughing inappropriately, loud and irritable Current Medications: Active Medications Generic Name Dose Route Start Last Admin Trade Name Freq PRN Reason Stop Dose Admin Acetaminophen 650 mg 11/19/17 12:19 Tylenol 325mg Tab PO Q6 PRN Pain, moderate (4-7) Al Hydrox/Mg Hydrox/Simethicone 30 ml 11/19/17 12:19 Maalox Plus 30 Ml PO Q4 PRN Dyspepsia Bismuth Subsalicylate 524 mg 11/19/17 12:19 Pepto-Bismol PO Q4 PRN Diarrhea [place] Carbonate 300 mg 11/20/17 12:25 [place] Carbonate 300mg PO DAILY OMAR [place] Carbonate 450 mg 11/19/17 22:00 [place] Carbonate 150mg PO HS OMAR Lorazepam 0.5 mg 11/19/17 12:19 Ativan PO 12/03/17 12:20 Q6 PRN Anixety/Agitation Magnesium Hydroxide 30 ml 11/19/17 12:19 Milk Of Magnesia PO HS PRN Constipation Trazodone HCl 25 mg 11/19/17 12:27 Desyrel PO HS PRN Insomnia Past Psychiatric History - Past Psychiatric History Explanation of prior treatment: multiple inpatient hospitalizations with history of partial compliance History of Family Illness: son / hx of schizoaffective disorder Pertinent Medical Hx (Current Medical&Sleep Prob, Allergies): Allergies Allergy/AdvReac Type Severity Reaction Status Date / Time tomato Allergy RASH Verified 11/19/17 06:11 Levothyroxine [Synthroid] 88 mcg PO DAILY 08/01/17 Losartan [Cozaar] 50 mg PO DAILY 08/01/17 metFORMIN [glucOPHAGE] 500 mg PO BID 08/01/17 [place]/Vit B12/Folic Acid/Vit B6 [Folic Acid-Vit B6-Vit B12 Tab] 1 each PO DAILY Famotidine [Pepcid] 20 mg PO DAILY 08/20/17 Lecithin 1,200 mg PO DAILY 08/20/17 Pregabalin [Lyrica] 75 mg PO Q12 08/20/17 [place] Carbonate [[place] Carbonate 150MG] 450 mg PO HS cap 08/27/17 Insulin Detemir [Levemir] 10 unit SC DAILY 11/19/17 [place] Carbonate [[place] Carbonate 150MG] 300 mg PO DAILY 11/19/17 Rosuvastatin Calcium [Crestor] 10 mg PO DAILY 11/19/17 Mental Status Examination - Personal Presentation Personal Presentation: Looks older than stated age - Affect Additional comments: labile - Motor Activity Motor Activity: Psychomotor Agitation - Reliability in Providing Information Reliability in Providing Information: Poor, due to alteration in thoughts, Poor , due to altered mood - Speech Speech: Tangential - Mood Mood: Anxious, Euphoric - Formal Thought Process Formal Thought Process: Loosening of associations, Flight of ideas, Circumstantial - Hallucinations/Delusions Additional comments: pt denied perceptual disturbances - Obsessions/Compulsions Obsessions: No Compulsions: No - Cognitive Functions Orientation: Person, Place, Situation Sensorium: Alert Judgement: Imparied, as evidence by: Poor judgement, Imparied, as evidence by: Lack of insight into illness - Strength & Assets Inventory Strength & Assets Inventory: Life experience - Limitations Additional comments: partial compliance DSM 5 DX - DSM 5 DSM 5 Diagnosis: bipolar I disorder mixed severe - Recommended/Plan of Treatment Treatment Recommendations and Plan of Treatment: re start lithium 300m,g daily and 450mg qhs follow up on lithium level CBT group and supportive therapy Prognosis: guarded
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
[2017-11-19 21:09] VITALS: O2SAT 99
[2017-11-19] MEDS: Lithium Carbonate 150 MG CAP PO SCH (21:22)
[2017-11-20] MEDS: Levothyroxine 88 MCG TAB PO SCH (09:02)
[2017-11-20 09:40] LABS: T4 12.7 ug/dl (5.5-11.0)
[2017-11-20 13:30] VITALS: RESP 18
--- NOTE | 2017-11-20 14:37 | PCM.PYCHPN ---
Psychiatric Progress Note - Psychiatric Progress Note Patient seen today, length of contact: pt evaluated discussed with team chart reviewed Patient Chief Complaint: I need to get back to work Problems Identified/Issues Discussed: pt evaluated, presenting with labile mood and affect, periods of irritability and agitation, alternating with periods of inappropriate laughing , at instances appear responding to internal stimuli, pt denied command hallucinations, continues to needs frequent redirection discussed with pt need to follow up on lithium level for gradual uptitration pt denied active suicidal ideation on the unit, denied command hallucinations Medical Problems: multiple inpatient hospitalizations with history of partial compliance DSM 5 Symptoms Update: bipolar i disorder mixed severe Medication Change: No Medical Record Reviewed: Yes Mental Status Examination - Cognitive Function Orientation: Person, Place, Situation Memory: Intact Attention: WNL Concentration: Poor Association: Loose Fund of Knowledge: Poor Decription of patient's judgement and insights: partial insight poor judgment - Mood Mood: Anxious, Euphoric - Affect Additional comments: labile - Speech Speech: Loud, Pressured - Formal Thought Process Formal Thought Process: Loosening of associations, Flight of ideas, Circumstantial Psychotic Thoughts and Behaviors: pt appears internally preoccupied , denied command hallucinations - Suicidal Ideation Suicidal Ideation: No - Homicidal Ideation Homicidal Ideation: No Goal/Treatment Plan - Goal/Treatment Plan Need for Continued Stay: Severe depression anxiety, Discharge may exacerbated symptoms Progress Toward Problem(s) and Goals/Treatment Plan: lithium 300m,g daily and 450mg qhs follow up on lithium level CBT group and supportive therapy physical therapy evaluation for knee pain
[2017-11-20] MEDS: Lithium Carbonate 150 MG CAP PO SCH (21:02)
[2017-11-21] MEDS: Levothyroxine 88 MCG TAB PO SCH (05:44)
--- NOTE | 2017-11-21 12:57 | PCM.PYCHPN ---
Psychiatric Progress Note - Psychiatric Progress Note Patient seen today, length of contact: pt evaluated discussed with team chart reviewed Patient Chief Complaint: I am feeling better today Problems Identified/Issues Discussed: pt evaluated with treatment team, reported mood better , affect less labile , speech more goal directed, no reported side effects of medications lithium level noted to be 0.7, no reported changes in sleep or appetite pt denied active suicidal ideation on the unit, denied command hallucinations Medical Problems: multiple inpatient hospitalizations with history of partial compliance DSM 5 Symptoms Update: bipolar I disorder mixed Medication Change: No Medical Record Reviewed: Yes Mental Status Examination - Cognitive Function Orientation: Person, Place, Situation Memory: Intact Attention: WNL Concentration: Poor Association: WNL Fund of Knowledge: Poor Decription of patient's judgement and insights: partial insight poor judgment - Mood Mood: Anxious - Affect Affect: Constricted - Speech Speech: Loud - Formal Thought Process Formal Thought Process: Circumstantial Psychotic Thoughts and Behaviors: pt denied any current perceptual disturbances, non elicited - Suicidal Ideation Suicidal Ideation: No - Homicidal Ideation Homicidal Ideation: No Goal/Treatment Plan - Goal/Treatment Plan Need for Continued Stay: Severe depression anxiety, Discharge may exacerbated symptoms Progress Toward Problem(s) and Goals/Treatment Plan: lithium 300m,g daily and 450mg qhs lithium level, 0.7 CBT group and supportive therapy physical therapy evaluation and treatment for knee pain
[2017-11-21] MEDS: Lithium Carbonate 150 MG CAP PO SCH (21:11)
[2017-11-22] MEDS: Levothyroxine 88 MCG TAB PO SCH (06:28)
[2017-11-22 09:10] VITALS: BP 117/66; PULSE 81
[2017-11-22 09:30] VITALS: TEMP 97.5
--- NOTE | 2017-11-22 11:06 | PCM.PYCHDC ---
Mental Status Examination - Mental Status Examination Orientation: Person, Place, Situation Memory: Intact Mood: Neutral Affect: Broad Speech: Appropriate Attention: WNL Concentration: WNL Association: WNL Fund of Knowledge: WNL Formal Thought Process: Circumstantial Description of patient's judgement and insight: partial insight poor judgment Psychotic Thoughts and Behaviors: pt denied any current perceptual disturbances, non elicited Suicidal Ideation: No Current Homicidal Ideation?: No Discharge Summary - Discharge Note Reason for Hospitalization: pt is 57 ys old female with previous diagnosis of bipolar disorder, pt reportedly partially compliant with medications,pt started to experience labile mood and affect, became increasingly argumentative with her son , pt also noticed to be internally preoccupied , laughing in appropriately, brought to ER for evaluation, pt reported that she has been experiencing passive suicidal ideation , feeling unstable on her current medication, denied command hallucinations denied homicidal ideation on the unit presenting with labile affect, laughing inappropriately, loud and irritable Consultations:: List each consultation separately and include: 1. Reason for request. 2. Findings. 3. Follow-up Summary of Hospital Course include:: 1. Description of specific treatment plan utilized for patients during their course of treatmen. 2. Summarize the time- course for resolution of acute symptoms and/or regressed behaviors. 3. Describe issues identified and worked on during hospitalization. 4. Describe medication utilized. 5. Describe medical problems identified and treated. 6. Reassessment of suicide risk Summary of Hospital Course: pt on admission presented with irritable mood , labile affect pt was restarted on medications including lithium CBT group and supportive therapy was provided physical therapy consult initiated as pt complained of knee pain, pt was compliant with medications, lithium level noted to be 0.7, no reported side effects PACT team contacted by social service technician and updated about treatment plan pt on discharge presented with stable mental status denied any current suicidal or homicidal ideation, denied perceptual disturbances pt will be followed up by PACT team - Diagnosis (1) Depressed Current Visit: Yes Status: Acute - Final Diagnosis (DSM 5) Condition upon Discharge: STABLE DSM 5: bipolar I disorder mixed severe Disposition: HOME/ ROUTINE Follow-up Treatment Plan: PACT team - Smoking Cessation Smoking Cessation Medication prescribed: No - Antipsychotic Medications Pt discharged on 2 or more routine antipsychotic medications: No
== END 2017-11-22 11:40 | disposition home or self-care (01) | DRG 885 ==
LOC: H.ER 06:02 → H.ERHOLD 09:34 → H.PSYCH 11:28
PROVIDERS: ADMIT Psychiatry & Neurology Psychiatry; ATTEND Psychiatry & Neurology Psychiatry
PROC: GZHZZZZ Group Psychotherapy (ICD-10-PCS; principal; 2017-11-19)
PROC: GZ58ZZZ Individual Psychotherapy, Cognitive-Behavioral (ICD-10-PCS; 2017-11-19)
PROC: GZ56ZZZ Individual Psychotherapy, Supportive (ICD-10-PCS; 2017-11-19)
DX: F31.63 Bipolar disorder, current episode mixed, severe, without psychotic features (principal); R45.851 Suicidal ideations; M25.562 Pain in left knee; E03.9 Hypothyroidism, unspecified; E11.9 Type 2 diabetes mellitus without complications; E78.00 Pure hypercholesterolemia, unspecified; I10 Essential (primary) hypertension; M19.90 Unspecified osteoarthritis, unspecified site; Z91.018 Allergy to other foods

== ENCOUNTER 2017-11-26 01:55 | Emergency (ER) | payer MEDICARE, OTHER ==
[2017-11-26 02:10] VITALS: BP 171/71; PULSE 65; RESP 16; TEMP 98.3; O2SAT 99
--- NOTE | 2017-11-26 02:55 | ED PDOC ---
HPI: Psych/Substance Abuse Time Seen by Provider: 11/26/17 01:58 Chief Complaint (Nursing): Lower Extremity Problem/Injury Chief Complaint (Provider): "My feet are bleeding." History Per: Patient Additional Complaint(s): 57 year old female with a history of paranoid schizophrenia and bipolar disorder presents to the ED stating that her feet are bleeding. Pt ambulating with steady gait, no bleding noted. Patient states she has delusion and psychosis. Denies homicidal ideation and suicidal ideation. PMD: Dr. Jorgensen (Non [facility] Provider) Past Medical History Reviewed: Historical Data, Nursing Documentation, Vital Signs Vital Signs: Last Vital Signs Temp 98.3 F 11/26/17 02:06 Pulse 65 11/26/17 02:06 Resp 16 11/26/17 02:06 BP 171/71 H 11/26/17 02:06 Pulse Ox 99 11/26/17 02:06 - Medical History PMH: Anxiety, Arthritis, Bipolar Disorder, Depression, Diabetes, HTN, Hypercholesterolemia, Hyperthyroidism, Hypothyroidism, Schizophrenia ( schizoaffective) Denies: Hepatitis, HIV, Chronic Kidney Disease, Seizures, Sexually Transmitted Disease - Surgical History Surgical History: Cholecystectomy, Hernia Repair (umbilical hernia repair) - Family History Family History: States: Unknown Family Hx - Immunization History Hx Tetanus Toxoid Vaccination: Yes Hx Influenza Vaccination: Yes Hx Pneumococcal Vaccination: Yes - Home Medications Home Medications: Ambulatory Orders Medication Instructions Recorded Levothyroxine [Synthroid] 88 mcg PO DAILY 08/01/17 Losartan [Cozaar] 50 mg PO DAILY 08/01/17 metFORMIN [glucOPHAGE] 500 mg PO BID 08/01/17 Morales/Vit B12/Folic Acid/Vit B6 1 each PO DAILY 08/20/17 [Folic Acid-Vit B6-Vit B12 Tab] Famotidine [Pepcid] 20 mg PO DAILY 08/20/17 Lecithin 1,200 mg PO DAILY 08/20/17 Pregabalin [Lyrica] 75 mg PO Q12 08/20/17 [place] Carbonate [[place] 450 mg PO HS cap 08/27/17 Carbonate 150MG] Insulin Detemir [Levemir] 10 unit SC DAILY 11/19/17 [place] Carbonate [[place] 300 mg PO DAILY 11/19/17 Carbonate 150MG] Rosuvastatin Calcium [Crestor] 10 mg PO DAILY 08/06/18 Acetaminophen [Tylenol 325mg tab] 650 mg PO Q6 PRN tab 11/22/17 Atorvastatin [Lipitor] 20 mg PO DAILY tab 11/22/17 LORazepam [Ativan] 0.5 mg PO Q6 PRN tab 11/22/17 [place] Carbonate [[place] 450 mg PO HS cap 11/22/17 Carbonate 150MG] [place] Carbonate [[place] 300 mg PO DAILY cap 11/22/17 Carbonate 300MG] Magnesium Hydroxide [Milk Of 30 ml PO HS PRN udc 11/22/17 Magnesia] traZODone [Desyrel] 25 mg PO HS PRN tab 11/22/17 - Allergies Allergies/Adverse Reactions: Allergies Allergy/AdvReac Type Severity Reaction Status Date / Time tomato Allergy RASH Verified 11/19/17 06:11 Review of Systems ROS Statement: Except As Marked, All Systems Reviewed And Found Negative Physical Exam - Reviewed Nursing Documentation Reviewed: Yes Vital Signs Reviewed: Yes - Physical Exam Appears: Positive for: Well, Non-toxic, No Acute Distress Head Exam: Positive for: ATRAUMATIC, NORMAL INSPECTION, NORMOCEPHALIC Skin: Positive for: Normal Color, Warm, DRY Eye Exam: Positive for: EOMI, Normal appearance, PERRL ENT: Positive for: Normal ENT Inspection Neck: Positive for: Normal, Painless ROM Cardiovascular/Chest: Positive for: Regular Rate, Rhythm Respiratory: Positive for: CNT, Normal Breath Sounds Gastrointestinal/Abdominal: Positive for: Normal Exam, Soft Back: Positive for: Normal Inspection Extremity: Positive for: Normal ROM Neurologic/Psych: Positive for: Alert, Oriented - ECG O2 Sat by Pulse Oximetry: 99 Medical Decision Making Medical Decision Making: Crisis made aware of evaluation, see notes Disposition - Clinical Impression Clinical Impression: Schizoaffective disorder - Patient ED Disposition Is Patient to be Admitted: No - Disposition Disposition: Routine/Home Disposition Time: 04:44 Condition: STABLE Instructions: Schizoaffective Disorder (DC) Forms: [employer] (Venezuelan)
== END 2017-11-26 04:42 | disposition home or self-care (01) ==
LOC: H.ER 01:55
DX: F25.9 Schizoaffective disorder, unspecified (principal)

== ENCOUNTER 2017-11-28 07:10 | Emergency (ER) | payer MEDICARE, OTHER ==
[2017-11-28 07:33] VITALS: RESP 19
--- NOTE | 2017-11-28 07:53 | ED PDOC ---
HPI: Chest Pain Time Seen by Provider: 11/28/17 07:24 Chief Complaint (Nursing): Chest Pain Chief Complaint (Provider): Chest Pain History Per: Patient History/Exam Limitations: no limitations Onset/Duration Of Symptoms: Hrs Current Symptoms Are (Timing): Still Present Quality: "Pain" Additional Complaint(s): 57 year old female with a past medical history of diabetes, thyroid disease and high blood pressure presents to the ED for an evaluation of chest pain onset today. Patient states she hit her chest against object developing pain. She also has an erick wrap around her left leg for which she came to the ED according to her previous records. Patient denies shortness of breath, abdominal pain, nausea, vomiting, diarrhea or cough. PMD: Dr. Chang Past Medical History Reviewed: Historical Data, Nursing Documentation, Vital Signs Vital Signs: Last Vital Signs Temp 99.1 F 11/28/17 07:25 Pulse 67 11/28/17 07:55 Resp 19 11/28/17 07:25 BP 157/77 H 11/28/17 07:25 Pulse Ox 99 11/28/17 07:55 - Medical History PMH: Anxiety, Arthritis, Bipolar Disorder, Depression, Diabetes, HTN, Hypercholesterolemia, Hyperthyroidism, Hypothyroidism, Schizophrenia ( schizoaffective) Denies: Hepatitis, HIV, Chronic Kidney Disease, Seizures, Sexually Transmitted Disease - Surgical History Surgical History: Cholecystectomy, Hernia Repair (umbilical hernia repair) - Family History Family History: States: Unknown Family Hx - Immunization History Hx Tetanus Toxoid Vaccination: Yes Hx Influenza Vaccination: Yes Hx Pneumococcal Vaccination: Yes - Home Medications Home Medications: Ambulatory Orders Medication Instructions Recorded Levothyroxine [Synthroid] 88 mcg PO DAILY 08/01/17 Losartan [Cozaar] 50 mg PO DAILY 08/01/17 metFORMIN [glucOPHAGE] 500 mg PO BID 08/01/17 Morales/Vit B12/Folic Acid/Vit B6 1 each PO DAILY 08/20/17 [Folic Acid-Vit B6-Vit B12 Tab] Famotidine [Pepcid] 20 mg PO DAILY 08/20/17 Lecithin 1,200 mg PO DAILY 08/20/17 Pregabalin [Lyrica] 75 mg PO Q12 08/20/17 [place] Carbonate [Gate 450 mg PO HS cap 08/27/17 Carbonate 150MG] Insulin Detemir [Levemir] 10 unit SC DAILY 11/19/17 Gate Carbonate [Gate 300 mg PO DAILY 11/19/17 Carbonate 150MG] Rosuvastatin Calcium [Crestor] 10 mg PO DAILY 11/19/17 Acetaminophen [Tylenol 325mg tab] 650 mg PO Q6 PRN tab 11/22/17 Atorvastatin [Lipitor] 20 mg PO DAILY tab 11/22/17 LORazepam [Ativan] 0.5 mg PO Q6 PRN tab 11/22/17 Gate Carbonate [Gate 450 mg PO HS cap 11/22/17 Carbonate 150MG] Gate Carbonate [Gate 300 mg PO DAILY cap 11/22/17 Carbonate 300MG] Magnesium Hydroxide [Milk Of 30 ml PO HS PRN udc 11/22/17 Magnesia] traZODone [Desyrel] 25 mg PO HS PRN tab 11/22/17 - Allergies Allergies/Adverse Reactions: Allergies Allergy/AdvReac Type Severity Reaction Status Date / Time tomato Allergy RASH Verified 11/28/17 07:33 Review of Systems ROS Statement: Except As Marked, All Systems Reviewed And Found Negative Constitutional: Negative for: Fever Cardiovascular: Positive for: Chest Pain Respiratory: Negative for: Cough, Shortness of Breath Gastrointestinal: Negative for: Nausea, Vomiting, Abdominal Pain, Diarrhea Physical Exam - Reviewed Nursing Documentation Reviewed: Yes Vital Signs Reviewed: Yes - Physical Exam Appears: Positive for: Well, Non-toxic, No Acute Distress Head Exam: Positive for: ATRAUMATIC, NORMAL INSPECTION, NORMOCEPHALIC Skin: Positive for: Normal Color, Warm, Dry Eye Exam: Positive for: EOMI, Normal appearance, PERRL ENT: Positive for: Normal ENT Inspection Neck: Positive for: Normal, Painless ROM, Supple. Negative for: Decreased ROM Cardiovascular/Chest: Positive for: Regular Rate, Rhythm. Negative for: Murmur Respiratory: Positive for: Normal Breath Sounds. Negative for: Decreased Breath Sounds, Wheezing, Respiratory Distress Gastrointestinal/Abdominal: Positive for: Normal Exam, Bowel Sounds, Soft. Negative for: Tenderness, Guarding, Rebound Back: Positive for: Normal Inspection Extremity: Positive for: Normal ROM. Negative for: Tenderness, Pedal Edema, Deformity Neurologic/Psych: Positive for: Alert, Oriented (x3). Negative for: Motor/ Sensory Deficits - ECG ECG: Positive for: Interpreted By Me, Viewed By Me ECG Rhythm: Positive for: Normal QRS, Normal ST Segment, Sinus Rhythm Rate: 67 O2 Sat by Pulse Oximetry: 99 - Radiology X-Ray: Viewed By Me, Read By Radiologist X-Ray Interpretation: No Acute Disease - Progress Re-evaluation Time: 08:30 Condition: Improved Medical Decision Making Medical Decision Making: Time: 743 Initial Impression: chest pain due to traumatic injury, atypical Initial Plan: --Chest Two Views (PA/LAT) --Glucose, Blood, POC --Reevaluation EKG: Normal Sinus Rhythm, Normal QRS, No Acute Changes, Rate: 67 bpm Scribe Attestation: Documented by Fermín Grady, acting as a scribe for Sophie Bowman MD Provider Scribe Attestation: All medical record entries made by the Scribe were at my direction and personally dictated by me. I have reviewed the chart and agree that the record accurately reflects my personal performance of the history, physical exam, medical decision making, and the department course for this patient. I have also personally directed, reviewed, and agree with the discharge instructions and disposition. Disposition - Clinical Impression Clinical Impression: Chest wall pain - Patient ED Disposition Is Patient to be Admitted: No Doctor Will See Patient In The: Office Counseled Patient/Family Regarding: Diagnosis, Need For Followup - Disposition Referrals: Delilah Chang MD [Staff Provider] - Disposition: Routine/Home Disposition Time: 08:45 Condition: STABLE Additional Instructions: Please take Tylenol over the counter - 2 tablets every 6 hours as needed for pain. Instructions: Chest Pain That Is Not Caused by the Heart (DC) Forms: [employer] (Latvian) Print Language: MALIAN - POA Present On Arrival: Falls Or Trauma
[2017-11-28 09:20] VITALS: BP 150/81; PULSE 70; TEMP 98.9; O2SAT 98
--- NOTE | 2017-11-28 11:04 | RAD ---
Date of service: 11/28/2017 HISTORY: blunt injury to chest COMPARISON: 11/19/2017 TECHNIQUE: Chest PA and lateral FINDINGS: LUNGS: No active pulmonary disease. PLEURA: No significant pleural effusion identified. No pneumothorax apparent. CARDIOVASCULAR: Normal. OSSEOUS STRUCTURES: Thoracic spondylosis and bilateral shoulder arthrosis -similar VISUALIZED UPPER ABDOMEN: Right upper quadrant post cholecystectomy clips -similar OTHER FINDINGS: None. IMPRESSION: No interval active disease.
== END 2017-11-28 09:22 | disposition home or self-care (01) ==
LOC: H.ER 07:10
DX: R07.89 Other chest pain (principal); E03.9 Hypothyroidism, unspecified; E05.90 Thyrotoxicosis, unspecified without thyrotoxic crisis or storm; E11.9 Type 2 diabetes mellitus without complications; E78.00 Pure hypercholesterolemia, unspecified; I10 Essential (primary) hypertension; Z79.4 Long term (current) use of insulin; F31.9 Bipolar disorder, unspecified

== ENCOUNTER 2017-11-29 05:39 | Emergency (ER) | payer MEDICARE, OTHER ==
[2017-11-29 05:51] VITALS: BP 162/82; PULSE 72; RESP 16; TEMP 97.8; O2SAT 96
--- NOTE | 2017-11-29 05:57 | ED PDOC ---
HPI: Psych/Substance Abuse ED Caveat: Acuity of Condition History Per: Patient History/Exam Limitations: no limitations Onset/Duration Of Symptoms: Hrs Current Symptoms Are (Timing): Still Present Additional Complaint(s): 57 ye57 year old female with a history of paranoid schizophrenia and bipolar disorder presents to the EDclaiming that she did not take her sleeping medications because she "did not have milk at home". Patient is also perseverating over not having "the chocolate that the pentecostal gives [her]". Patient currently denying suicidal or homicidal ideation. Past Medical History Reviewed: Historical Data, Nursing Documentation Vital Signs: Last Vital Signs Temp 97.8 F 11/29/17 05:46 Pulse 72 11/29/17 05:46 Resp 16 11/29/17 05:46 BP 162/82 H 11/29/17 05:46 Pulse Ox 96 11/29/17 05:46 - Medical History PMH: Anxiety, Arthritis, Bipolar Disorder, Depression, Diabetes, HTN, Hypercholesterolemia, Hyperthyroidism, Hypothyroidism, Schizophrenia ( schizoaffective) Denies: Hepatitis, HIV, Chronic Kidney Disease, Seizures, Sexually Transmitted Disease - Surgical History Surgical History: Cholecystectomy, Hernia Repair (umbilical hernia repair) - Family History Family History: States: Unknown Family Hx - Immunization History Hx Tetanus Toxoid Vaccination: Yes Hx Influenza Vaccination: Yes Hx Pneumococcal Vaccination: Yes - Home Medications Home Medications: Ambulatory Orders Medication Instructions Recorded Levothyroxine [Synthroid] 88 mcg PO DAILY 08/01/17 Losartan [Cozaar] 50 mg PO DAILY 08/01/17 metFORMIN [glucOPHAGE] 500 mg PO BID 08/01/17 Morales/Vit B12/Folic Acid/Vit B6 1 each PO DAILY 08/20/17 [Folic Acid-Vit B6-Vit B12 Tab] Famotidine [Pepcid] 20 mg PO DAILY 08/20/17 Lecithin 1,200 mg PO DAILY 08/20/17 Pregabalin [Lyrica] 75 mg PO Q12 08/20/17 [place] Carbonate [[place] 450 mg PO HS cap 08/27/17 Carbonate 150MG] Insulin Detemir [Levemir] 10 unit SC DAILY 11/19/17 [place] Carbonate [[place] 300 mg PO DAILY 11/19/17 Carbonate 150MG] Rosuvastatin Calcium [Crestor] 10 mg PO DAILY 11/19/17 Acetaminophen [Tylenol 325mg tab] 650 mg PO Q6 PRN tab 11/22/17 Atorvastatin [Lipitor] 20 mg PO DAILY tab 11/22/17 LORazepam [Ativan] 0.5 mg PO Q6 PRN tab 11/22/17 [place] Carbonate [[place] 450 mg PO HS cap 11/22/17 Carbonate 150MG] [place] Carbonate [[place] 300 mg PO DAILY cap 11/22/17 Carbonate 300MG] Magnesium Hydroxide [Milk Of 30 ml PO HS PRN udc 11/22/17 Magnesia] traZODone [Desyrel] 25 mg PO HS PRN tab 11/22/17 - Allergies Allergies/Adverse Reactions: Allergies Allergy/AdvReac Type Severity Reaction Status Date / Time tomato Allergy RASH Verified 11/28/17 07:33 Review of Systems ROS Statement: Except As Marked, All Systems Reviewed And Found Negative Psych: Negative for: Suicidal ideation Physical Exam - Reviewed Nursing Documentation Reviewed: Yes Vital Signs Reviewed: Yes - Physical Exam Appears: Positive for: Well, Non-toxic, No Acute Distress Head Exam: Positive for: ATRAUMATIC, NORMAL INSPECTION, NORMOCEPHALIC Skin: Positive for: Normal Color, Warm, DRY Eye Exam: Positive for: EOMI, Normal appearance, PERRL ENT: Positive for: Normal ENT Inspection Neck: Positive for: Normal, Painless ROM Cardiovascular/Chest: Positive for: Regular Rate, Rhythm Respiratory: Positive for: CNT, Normal Breath Sounds Gastrointestinal/Abdominal: Positive for: Normal Exam, Soft Back: Positive for: Normal Inspection Extremity: Positive for: Normal ROM Neurologic/Psych: Positive for: Alert, stunner animal II-XII, Oriented (A&O x 3), Mood/ Affect (Odd behavior). Negative for: Motor/Sensory Deficits - ECG O2 Sat by Pulse Oximetry: 96 Pulse Ox Interpretation: Normal Medical Decision Making Medical Decision Making: Patient evaluated by link trainer maintenance worker Saida. Patient does not meet admission criteria at this time. Although patient's behavior is odd, she is not a danger to herself or others. Patient stable for discharge and outpatient followup. Disposition - Clinical Impression Clinical Impression: Schizoaffective disorder, Bipolar disorder - Patient ED Disposition Is Patient to be Admitted: No - Disposition Referrals: [facility] [Outside] Disposition: Routine/Home Disposition Time: 06:03 Condition: STABLE Instructions: Bipolar Disorder, Schizoaffective Disorder Print Language: GUYANESE
== END 2017-11-29 06:20 | disposition home or self-care (01) ==
LOC: H.ER 05:39
DX: F25.9 Schizoaffective disorder, unspecified (principal); F31.9 Bipolar disorder, unspecified; E11.9 Type 2 diabetes mellitus without complications; Z79.4 Long term (current) use of insulin

== ENCOUNTER 2017-11-29 08:39 | Inpatient (IN) | payer MEDICARE, MEDICAID ==
[2017-11-29 08:56] VITALS: O2SAT 99
--- NOTE | 2017-11-29 10:17 | ED PDOC ---
HPI: Psych/Substance Abuse Time Seen by Provider: 11/29/17 09:07 Chief Complaint (Nursing): Psychiatric Evaluation Chief Complaint (Provider): Bizarre behavior History Per: Patient History/Exam Limitations: no limitations Additional Complaint(s): Pt brought back to ED from main lobby for bizarre behavior. Pt discharged from ED earlier today. Denies suicidal/homicidal ideation. Past Medical History Reviewed: Nursing Documentation, Vital Signs Vital Signs: Last Vital Signs Temp 98.7 F 11/29/17 08:54 Pulse 63 11/29/17 08:54 Resp 16 11/29/17 08:54 BP 179/72 H 11/29/17 08:54 Pulse Ox 99 11/29/17 08:54 - Medical History PMH: Anxiety, Arthritis, Bipolar Disorder, Depression, Diabetes, HTN, Hypercholesterolemia, Hyperthyroidism, Hypothyroidism, Schizophrenia ( schizoaffective) Denies: Hepatitis, HIV, Chronic Kidney Disease, Seizures, Sexually Transmitted Disease - Surgical History Surgical History: Cholecystectomy, Hernia Repair (umbilical hernia repair) - Family History Family History: States: Unknown Family Hx - Immunization History Hx Tetanus Toxoid Vaccination: Yes Hx Influenza Vaccination: Yes Hx Pneumococcal Vaccination: Yes - Home Medications Home Medications: Ambulatory Orders Medication Instructions Recorded Levothyroxine [Synthroid] 88 mcg PO DAILY 08/01/17 Losartan [Cozaar] 50 mg PO DAILY 08/01/17 metFORMIN [glucOPHAGE] 500 mg PO BID 08/01/17 Morales/Vit B12/Folic Acid/Vit B6 1 each PO DAILY 08/20/17 [Folic Acid-Vit B6-Vit B12 Tab] Famotidine [Pepcid] 20 mg PO DAILY 08/20/17 Lecithin 1,200 mg PO DAILY 08/20/17 Pregabalin [Lyrica] 75 mg PO Q12 08/20/17 Insulin Detemir [Levemir] 10 unit SC DAILY 11/19/17 Rosuvastatin Calcium [Crestor] 10 mg PO DAILY 11/19/17 Acetaminophen [Tylenol 325mg tab] 650 mg PO Q6 PRN tab 11/22/17 Atorvastatin [Lipitor] 20 mg PO DAILY tab 11/22/17 [place] Carbonate [[place] 450 mg PO HS cap 11/22/17 Carbonate 150MG] [place] Carbonate [[place] 300 mg PO DAILY cap 11/22/17 Carbonate 300MG] Magnesium Hydroxide [Milk Of 30 ml PO HS PRN udc 11/22/17 Magnesia] traZODone [Desyrel] 25 mg PO HS PRN tab 11/22/17 LORazepam [Ativan] 0.5 mg PO Q12 PRN 11/29/17 - Allergies Allergies/Adverse Reactions: Allergies Allergy/AdvReac Type Severity Reaction Status Date / Time tomato Allergy RASH Verified 11/28/17 07:33 Review of Systems ROS Statement: Except As Marked, All Systems Reviewed And Found Negative Physical Exam - Reviewed Nursing Documentation Reviewed: Yes Vital Signs Reviewed: Yes - Physical Exam Appears: Positive for: Well, No Acute Distress Head Exam: Positive for: ATRAUMATIC, NORMAL INSPECTION Skin: Positive for: Normal Color, Warm, Dry Cardiovascular/Chest: Positive for: Regular Rate, Rhythm Respiratory: Positive for: Normal Breath Sounds Neurologic/Psych: Positive for: Alert, chemical etching processor II-XII, Oriented. Negative for: Facial Droop - Laboratory Results Result Diagrams: 11/29/17 10:08 11/29/17 10:08 - ECG Interpretation Of ECG: Sinus zac @ 56. O2 Sat by Pulse Oximetry: 99 Pulse Ox Interpretation: Normal - Radiology X-Ray: Interpreted by [place] X-Ray Interpretation: No Acute Disease Medical Decision Making Medical Decision Makin yo female with bizarre behavior. - labs - EKG - CXR - Crisis evaluation - medical clearance MEDICAL CLEARANCE: Pt medically cleared for psychiatric admission. Disposition - Clinical Impression Clinical Impression: Schizoaffective disorder, bipolar type - Patient ED Disposition Is Patient to be Admitted: Yes - Disposition Disposition Time: 10:48 Condition: STABLE Forms: [employer] (Nicaraguan) - Pt Status Changed To: Hospital Disposition Of: Inpatient - Admit Certification Admit to Inpatient:: After my assessment, the patient will require hospitalization for at least two midnights. This is because of the severity of symptoms shown, intensity of services needed, and/or the medical risk in this patient being treated as an outpatient. - POA Present On Arrival: None
[2017-11-29 10:29] LABS: BASO % 0.5 % (0.0-2.0); EOS # 0.2 K/uL (0.0-0.7); EOS % 2.4 % (0.0-4.0); HEMOGLOBIN 12.7 g/dL (12.0-16.0); LYMPH # 1.9 K/uL (1.0-4.3); MEAN CORPUSCULAR HEMOGLOBIN 32.2 pg (27.0-31.0); MEAN CORPUSCULAR HGB CONC 34.3 g/dL (33.0-37.0); MEAN PLATELET VOLUME 7.5 fl (7.2-11.7); MONO # 0.5 K/uL (0.0-0.8); MONO % 5.2 % (0.0-10.0); NEUT # 6.1 K/uL (1.8-7.0); NEUT % 69.9 % (50.0-75.0); RBC 3.95 Mil/uL (3.80-5.20); RED CELL DISTRIBUTION WIDTH 14.2 % (11.5-14.5); WHITE BLOOD COUNT 8.7 K/uL (4.8-10.8)
[2017-11-29 10:39] LABS: ALB/GLOB RATIO 1.4 (1.0-2.1); ALBUMIN 4.1 g/dL (3.5-5.0); ALT/SGPT 42 U/L (9-52); AST/SGOT 40 U/L (14-36); BLOOD UREA NITROGEN 10 mg/dl (7-17); CALCIUM 9.6 mg/dL (8.4-10.2); GFR AFRICAN-AMERICAN > 60; GFR NON-AFRICAN AMERICAN > 60
[2017-11-29] MEDS ORDERED: Potassium Chloride 20 mEq ER Tab PO STA (10:44)
[2017-11-29] MEDS ORDERED: Alum-Mag Hydrox-Simethicone Susp (30 mL) PO PRN (11:06)
[2017-11-29] MEDS ORDERED: Bismuth Subsalicylate 262 mg/15 ml Sus (240 ml) PO PRN (11:06)
[2017-11-29] MEDS ORDERED: Magnesium Hydroxide Susp 30 ml UD PO PRN (11:06)
--- NOTE | 2017-11-29 11:24 | PCM.PSYCH ---
Initial Psychiatric Evaluation - Initial Psychiatric Evaluation Type of Admission: Voluntary Legal Status: Capacity Chief Complaint (in patient's own words): "I'm so upset." Patient's Reaction to Hospitalization: HPI: 57 yo female w/ h/o Schizoaffective DO vs Bipolar DO w/ psychotic features , presents acutely manic, disorganized, labile w/ poor insight/judgment, possibly in the setting of non-compliance or partial compliance w/ medications. She reports not sleeping for 5 days and was tearful when discussing how she ran out of milk w/ disorganized speech. She denies acute AH/VH/SI/HI. In the ER she also stated: Pt reported that she prefers to do Pole dancing than allow anybody to destroyed the "[employer] Pt stated, "[employer]" and the Politicians are capitalist who only want to take our money. PMx: DM, HTN, Hypothyroidism ALL: Tomato PPHx: Multiple past psychiatric admissions, most recent to [facility] 11/19/17-11/22/17. + PACT team Current Medications: Active Medications Generic Name Dose Route Start Last Admin Trade Name Freq PRN Reason Stop Dose Admin Acetaminophen 650 mg 11/29/17 11:06 Tylenol 325mg Tab PO Q4 PRN Pain, moderate (4-7) Al Hydrox/Mg Hydrox/Simethicone 30 ml 11/29/17 11:06 Maalox Plus 30 Ml PO Q4 PRN Dyspepsia Bismuth Subsalicylate 524 mg 11/29/17 11:06 Pepto-Bismol PO Q4 PRN Diarrhea [place] Carbonate 300 mg 11/30/17 09:00 [place] Carbonate 300mg PO DAILY OMAR [place] Carbonate 600 mg 11/29/17 22:00 [place] Carbonate 300mg PO HS OMAR Lorazepam 0.5 mg 11/29/17 11:06 Ativan PO 12/13/17 11:07 HS PRN Insomnia Lorazepam 0.5 mg 11/29/17 11:06 Ativan PO 12/13/17 11:07 Q6 PRN Anixety/Agitation Magnesium Hydroxide 30 ml 11/29/17 11:06 Milk Of Magnesia PO HS PRN Constipation Past Psychiatric History - Past Psychiatric History Previous Treatment History: Inpatient Pertinent Medical Hx (Current Medical&Sleep Prob, Allergies): Allergies Allergy/AdvReac Type Severity Reaction Status Date / Time tomato Allergy RASH Verified 11/28/17 07:33 Levothyroxine [Synthroid] 88 mcg PO DAILY 08/01/17 Losartan [Cozaar] 50 mg PO DAILY 08/01/17 metFORMIN [glucOPHAGE] 500 mg PO BID 08/01/17 [place]/Vit B12/Folic Acid/Vit B6 [Folic Acid-Vit B6-Vit B12 Tab] 1 each PO DAILY Famotidine [Pepcid] 20 mg PO DAILY 08/20/17 Lecithin 1,200 mg PO DAILY 08/20/17 Pregabalin [Lyrica] 75 mg PO Q12 08/20/17 Insulin Detemir [Levemir] 10 unit SC DAILY 11/19/17 Rosuvastatin Calcium [Crestor] 10 mg PO DAILY 11/19/17 Acetaminophen [Tylenol 325mg tab] 650 mg PO Q6 PRN tab 11/22/17 Atorvastatin [Lipitor] 20 mg PO DAILY tab 11/22/17 [place] Carbonate [[place] Carbonate 150MG] 450 mg PO HS cap 11/22/17 [place] Carbonate [[place] Carbonate 300MG] 300 mg PO DAILY cap 11/22/17 Magnesium Hydroxide [Milk Of Magnesia] 30 ml PO HS PRN udc 11/22/17 traZODone [Desyrel] 25 mg PO HS PRN tab 11/22/17 LORazepam [Ativan] 0.5 mg PO Q12 PRN 11/29/17 Review of Systems - Psychiatric Psychiatric: As Per HPI, Abnormal Sleep Pattern, Behavioral Changes, Change in Appetite, Difficulty Concentrating, Irritability, Mood Swings Mental Status Examination - Personal Presentation Personal Presentation: Looks stated age - Affect Affect: Other (Labile) - Motor Activity Motor Activity: Calm - Reliability in Providing Information Reliability in Providing Information: Poor, due to alteration in thoughts - Speech Speech: Disorganized - Mood Mood: Depressed - Formal Thought Process Formal Thought Process: Loosening of associations, Flight of ideas - Hallucinations/Delusions Additional comments: Denies AH/VH/paranoia/delusions - Obsessions/Compulsions Obsessions: No Compulsions: No - Cognitive Functions Orientation: Person, Place, Situation, Time Sensorium: Alert Attention/Concentration: Easily distracted Estimate of Intelligence: Average Judgement: Imparied, as evidence by: Poor judgement Memory: Recent impaired, as evidence by: Inability to recall events of the day - Risk Risk: Diminished functioning - Strength & Assets Inventory Strength & Assets Inventory: Cooperative DSM 5 DX - DSM 5 DSM 5 Diagnosis: Schizoaffective Disorder, Bipolar type vs Bipolar Disorder w/ Psychotic Features - Recommended/Plan of Treatment Treatment Recommendations and Plan of Treatment: Schizoaffective Disorder, Bipolar type vs Bipolar Disorder w/ Psychotic Features -Admit to psychiatry unit -Individual and group therapy -Restart [place] -Medicine consult -Obtain collateral history from PACT team -Disposition planning Projected ELOS: 5-8 days Discharge Plan and Discharge Criteria: Discharge when patient is psychiatrically stable - Smoking Cessation Smoking Cessation Initiated: No Reason for not providing: Not indicated
--- NOTE | 2017-11-29 11:44 | RAD ---
Date of service: 11/29/2017 HISTORY: Medical clearance COMPARISON: November 28, 2017. study performed 08:01. FINDINGS: LUNGS: No active pulmonary disease. PLEURA: No significant pleural effusion identified, no pneumothorax apparent. CARDIOVASCULAR: No radiographic findings to suggest acute or significant cardiovascular disease. OSSEOUS STRUCTURES: No significant abnormalities. VISUALIZED UPPER ABDOMEN: Normal. OTHER FINDINGS: None. IMPRESSION: No active disease. No significant interval change compared to the prior examination(s).
[2017-11-29 12:17] VITALS: BMI 21.9
--- NOTE | 2017-11-29 14:06 | PCM.BM ---
<Barby Crowedward Avilez - Last Filed: 11/29/17 14:04> Treatment Plan Problems - Problems identified on initial assessmt Problem 1 Date Initiated: 11/29/17 Time Initiated: 14:04 Assessment reference: HP, NA Status: Active Problem 2 Date Initiated: 11/29/17 Time Initiated: 14:06 Assessment reference: HP, NA Status: Active Treatment assets and liabiliti Patient Assests: adapts well, cooperative, resourceful, self-reliant, ADL independent, physically healthy, good support system, negotiates basic needs, cognitively intact Patient Liabilities: dietary restrictions, medical problems - Milieu Protocol Maintain good personal hygiene: daily Encourage regular showers, daily Remind patient to perform daily oral care, daily Assist patient to perform ADL's Conduct patient checks and document Observation sheet: Q15 minutes Maintain personal safety: every shift Educate patient to report safety concerns to staff, every shift Monitor environment for contraband/sharps Medication safety: Monitor for expected outcome, potential side effects: every shift, Assess barriers to learning: every shift, Assess readiness for medication education: every shift Milieu Narrative: Schizoaffective Disorder, Bipolar type vs Bipolar Disorder w/ Psychotic Features -Admit to psychiatry unit -Individual and group therapy -Restart [place] -Medicine consult -Obtain collateral history from PACT team -Disposition planning Discharge/Continuing Care - Treatment Team Participation Patient/Family/SO Statement: Schizoaffective Disorder, Bipolar type vs Bipolar Disorder w/ Psychotic Features -Admit to psychiatry unit -Individual and group therapy -Restart [place] -Medicine consult -Obtain collateral history from PACT team -Disposition planning <Emily Sanchez - Last Filed: 11/30/17 07:30> - Diagnosis (1) Schizoaffective disorder, bipolar type Status: Acute Interventions: Medication management, Individual and group therapy, Psychoeducation 11/30/17 07:30 <Zaki Madden - Last Filed: 11/30/17 18:26> Family Contact Family involvement: Family/SO is involved Family contact: Patient declines to allow family contact at present Family contact name: Kristopher Mota - Son [phone] Family contacted how many times per week?: 0 - Outside Agency Agency 1 Care involvment: Following patient during stay, Information-sharing [facility]ta RN - Goals for Treatment Patient goals for treatment: Pt is discharged focused and would like to leave the hospital. She is redirectable to stay at this time. Discharge/Continuing Care - Education Needs Education Needs: Patient Medication, Patient Diagnosis/Disease Process, Patient Coping Skills, Patient Community resources, Patient Aftercare Safety Plan - Discharge Discharge Criteria: Tolerates medication w/o severe side effects, Free of agitation, Normal sleep pattern, Ability to care for self, Reduction of target symptoms Discharge to:: Home, With Family - Additional Comments 11/30/17 18:24 Pt was seen in treatment team today and reported that she was feeling "meditative." Pt reported that she was working on controlling her mind and is focused on her knee and leg pain and corns. Pt reported she was from [place] twice when she was asked what country she was from. Pt then went on a tangent about [place]. Pt continued to speak in both [place] and [place] and often without any logical progression. - Treatment Team Participation Discussed with Family/SO: No Was Patient/Family/SO present at Treatment Team Meeting: Yes
--- NOTE | 2017-11-29 18:54 | CARD ---
APPROVED REPORT Date of service: 11/29/2017 <Conclusion> Sinus bradycardia Minimal voltage criteria for LVH, may be normal variant Borderline ECG
[2017-11-29 23:02] LABS: SQUAMOUS EPITHIAL < 1 /hpf (0-5); URINE BACTERIA RARE (<OCC); URINE BILIRUBIN NEGATIVE (NEGATIVE); URINE BLOOD NEGATIVE (NEGATIVE); URINE CLARITY CLEAR (Clear); URINE COLOR STRAW (YELLOW); URINE GLUCOSE (UA) NEG (Normal); URINE LEUKOCYTE ESTERASE MOD Leu/uL (Negative); URINE PROTEIN NEGATIVE (NEGATIVE); URINE UROBILINOGEN 0.2-1.0 mg/dL (0.2-1.0)
[2017-11-29 23:54] LABS: BARBITURATES, UR NEGATIVE (NEGATIVE); BENZODIAZEPINES, UR NEGATIVE (NEGATIVE); OPIATES, UR NEGATIVE (NEGATIVE); PHENCYCLIDINE, UR NEGATIVE (NEGATIVE)
[2017-11-30] MEDS: Levothyroxine 88 MCG TAB PO SCH (05:46)
--- NOTE | 2017-11-30 07:33 | PCM.PYCHPN ---
Psychiatric Progress Note - Psychiatric Progress Note Patient seen today, length of contact: Patient evaluated, case discussed w/ team , chart reviewed Patient Chief Complaint: "I'm so upset." Problems Identified/Issues Discussed: Patient continues to be manic, w/ disorganized speech and thought process. She continues to be labile, inappropriately happy at times and sings spontaneously. She denies acute AH/VH/SI/HI. +Poor sleep. Patient requires frequent redirection from staff. Medication Change: No Medical Record Reviewed: Yes Consults ordered or reviewed: Medicine consult Mental Status Examination - Cognitive Function Orientation: Person, Place, Situation, Time Memory: Impaired Attention: Poor Concentration: Poor Association: Loose Decription of patient's judgement and insights: Poor I/J - Mood Mood: Euphoric - Affect Affect: Other (Labile) - Speech Speech: Pressured - Formal Thought Process Formal Thought Process: Loosening of associations, Flight of ideas Psychotic Thoughts and Behaviors: Denies acute AH/VH but is observed talking to herself and seems internally preoccupied - Suicidal Ideation Suicidal Ideation: No - Homicidal Ideation Homicidal Ideation: No Goal/Treatment Plan - Goal/Treatment Plan Need for Continued Stay: Remain at risks for inpatient hospitalization, Discharge may exacerbated symptoms Progress Toward Problem(s) and Goals/Treatment Plan: Schizoaffective Disorder, Bipolar type vs Bipolar Disorder w/ Psychotic Features -Individual and group therapy -Continue [place] -Medicine consult -Obtain collateral history from PACT team -Disposition planning Estimated Date of D/C: 12/05/17
[2017-11-30] MEDS ORDERED: Multivitamin With Minerals Tab PO SCH (09:00)
[2017-11-30 09:31] LABS: HEMOGLOBIN 13.7 g/dL (12.0-16.0); MEAN CELL VOLUME 94.9 fl (81.0-99.0); MEAN CORPUSCULAR HEMOGLOBIN 32.1 pg (27.0-31.0); MEAN CORPUSCULAR HGB CONC 33.8 g/dL (33.0-37.0); RBC 4.27 Mil/uL (3.80-5.20); RED CELL DISTRIBUTION WIDTH 14.3 % (11.5-14.5); WHITE BLOOD COUNT 10.3 K/uL (4.8-10.8)
[2017-11-30 09:55] LABS: ALB/GLOB RATIO 1.3 (1.0-2.1); ALBUMIN 4.5 g/dL (3.5-5.0); ALT/SGPT 44 U/L (9-52); AST/SGOT 31 U/L (14-36); BLOOD UREA NITROGEN 10 mg/dl (7-17); CALCIUM 9.8 mg/dL (8.4-10.2); GFR AFRICAN-AMERICAN > 60; GFR NON-AFRICAN AMERICAN > 60; HDL CHOLESTEROL 36 MG/DL (30-70)
[2017-11-30 10:11] LABS: T4 12.7 ug/dl (5.5-11.0)
[2017-11-30 10:18] LABS: LDL CHOLESTEROL 67 mg/dL (0-129)
[2017-11-30 16:53] LABS: FOLATE 18.4 ng/mL
[2017-11-30 20:41] VITALS: RESP 18
[2017-12-01] MEDS: Levothyroxine 88 MCG TAB PO SCH (05:52)
[2017-12-01 06:09] VITALS: BP 143/80; PULSE 57; TEMP 98.1
--- NOTE | 2017-12-01 07:59 | PCM.PYCHDC ---
Mental Status Examination - Mental Status Examination Orientation: Person, Place, Situation, Time Memory: Impaired Mood: Euphoric Affect: Other (Labile) Speech: Loud, Pressured Attention: Poor Concentration: Poor Association: Loose Fund of Knowledge: Poor Formal Thought Process: Loosening of associations, Flight of ideas Description of patient's judgement and insight: Poor I/J Psychotic Thoughts and Behaviors: Denies acute AH/VH but is observed talking to herself and seems internally preoccupied Suicidal Ideation: No Current Homicidal Ideation?: No Discharge Summary - Discharge Note Reason for Hospitalization: HPI: 57 yo female w/ h/o Schizoaffective DO vs Bipolar DO w/ psychotic features , presents acutely manic, disorganized, labile w/ poor insight/judgment, possibly in the setting of non-compliance or partial compliance w/ medications. She reports not sleeping for 5 days and was tearful when discussing how she ran out of milk w/ disorganized speech. She denies acute AH/VH/SI/HI. In the ER she also stated: Pt reported that she prefers to do Pole dancing than allow anybody to destroyed the "[employer] Pt stated, "[employer]" and the Politicians are capitalist who only want to take our money. PMx: DM, HTN, Hypothyroidism ALL: Tomato PPHx: Multiple past psychiatric admissions, most recent to [facility] 11/19/17-11/22/17. + PACT team Laboratory Data: Abnormal Lab Results 11/30/17 11/30/17 11/30/17 09:19 09:19 09:19 WBC 10.3 RBC 4.27 Hgb 13.7 Hct 40.5 MCV 94.9 MCH 32.1 H MCHC 33.8 RDW 14.3 Plt Count 297 Sodium 138 Potassium 3.9 Chloride 105 Carbon Dioxide 23 Anion Gap 14 BUN 10 Creatinine 0.5 L Est GFR ( Amer) > 60 Est GFR (Non-Af Amer) > 60 Random Glucose 123 H Hemoglobin A1c Calcium 9.8 Total Bilirubin 1.8 H AST 31 ALT 44 Alkaline Phosphatase 94 Total Protein 7.8 Albumin 4.5 Globulin 3.4 Albumin/Globulin Ratio 1.3 Triglycerides 96 Cholesterol 126 LDL Cholesterol Direct 67 HDL Cholesterol 36 Vitamin B12 < 159 L Folate 18.4 Thyroxine (T4) 12.7 H TSH 3rd Generation 3.33 [place] 0.6 RPR 11/30/17 11/30/17 09:19 10:07 WBC RBC Hgb Hct MCV MCH MCHC RDW Plt Count Sodium Potassium Chloride Carbon Dioxide Anion Gap BUN Creatinine Est GFR ( Amer) Est GFR (Non-Af Amer) Random Glucose Hemoglobin A1c 5.4 Calcium Total Bilirubin AST ALT Alkaline Phosphatase Total Protein Albumin Globulin Albumin/Globulin Ratio Triglycerides Cholesterol LDL Cholesterol Direct HDL Cholesterol Vitamin B12 Folate Thyroxine (T4) TSH 3rd Generation [place] RPR Nonreactive Consultations:: List each consultation separately and include: 1. Reason for request. 2. Findings. 3. Follow-up Consultations: Medicine consult Summary of Hospital Course include:: 1. Description of specific treatment plan utilized for patients during their course of treatmen. 2. Summarize the time- course for resolution of acute symptoms and/or regressed behaviors. 3. Describe issues identified and worked on during hospitalization. 4. Describe medication utilized. 5. Describe medical problems identified and treated. 6. Reassessment of suicide risk Summary of Hospital Course: Patient was admitted to the psychiatry unit. Individual and group therapy were provided. Patient was restarted on [place] 300 mg PO AM/ 600 mg PO HS. She is manic, disorganized, euphoric, w/ poor insight/judgement. She submitted a 48 hr letter requesting to be discharged, was screened by [facility], accepted for involuntary psychiatric admission and transferred. - Diagnosis (1) Schizoaffective disorder, bipolar type Current Visit: Yes Status: Acute - Final Diagnosis (DSM 5) Condition upon Discharge: STABLE DSM 5: Schizoaffective Disorder Disposition: Trans to Other Acute Care Hosp Follow-up Treatment Plan: Schizoaffective Disorder, Bipolar type -Transfer to [facility] for involuntary psychiatric admission - Smoking Cessation Smoking Cessation Medication prescribed: No Reason for not providing: Not indicated - Antipsychotic Medications Pt discharged on 2 or more routine antipsychotic medications: No
--- NOTE | 2017-12-03 07:41 | CON ---
Copied To: Delilah Chang MD Attending MD: Delilah Chang MD DATE: CHIEF COMPLAINT: Left knee pain. HISTORY OF PRESENT ILLNESS: This is a 57-year-old female who was admitted to [facility] following psychiatric evaluation at the ER due to bizarre behavior noted in the main lobby of the hospital. The patient denied any suicidal or homicidal ideation. The patient had complained of left knee pain on ambulation which started after a fall on the pavement at [address] [facility] and [facility] on 09/23/2017. The patient had been taking Tylenol for pain relief. An x-ray of the left knee on 11/06/2017 revealed joint space narrowing with degenerative joint changes. There was demineralization of the bones noted. There was no evidence of fracture or dislocation. The patient was ordered a knee sleeve and physical therapy. The patient also complained of increasing fatigue approximately one month prior to admission. She also complains of on and off numbness and tingling of her feet. She denies any chest pain or shortness of breath or palpitations. PAST MEDICAL HISTORY: Diabetes with neuropathy, hypothyroidism, hypertension, gastritis, osteoarthritis of the left knee, restless leg syndrome, bipolar disorder, schizoaffective disorder, proteinuria, and hypercholesterolemia. MEDICATIONS: Levothyroxine 88 mcg daily on empty stomach; losartan 50 mg daily; metformin 500 mg twice daily; Citracal plus vitamin D 600 mg/500 international units one tablet twice daily; Pepcid 20 mg twice daily as needed; Lecithin 1200 mg daily; Lyrica 75 mg every 12 hours; Levemir 10 units subcu daily; Crestor 10 mg daily; Tylenol 325 mg tablet, two tablets every 6 hours p.r.n. pain; trazodone 25 mg at bedtime as needed; lithium 450 mg at every night at bedtime; lithium carbonate 300 mg daily. OBSTETRICAL HISTORY: G1, F1, P0, A0, L1. FAMILY HISTORY: Father with a history of diabetes. Mother secondary to colon cancer. The patient has 4 brothers and 1 sister who are healthy. SOCIAL HISTORY: The patient does not smoke cigarettes or consume alcohol. REVIEW OF SYSTEMS: Unremarkable except as mentioned above. PHYSICAL EXAMINATION: GENERAL: This is a 57-year-old pleasant and cooperative female. VITAL SIGNS: Blood pressure 148/78 mmHg, respirations 16 respirations per minute, pulse 63 beats per minute, pulse ox 99% on room air, and temperature 98.7 degrees Fahrenheit. SKIN: Warm and dry. HEENT: Atraumatic and normocephalic. Anicteric sclerae. Pupils equal, round, and reactive to light and accommodation. NECK: Supple. No jugular venous distention. No lymphadenopathy. Full range of motion. LUNGS: Clear to auscultation. HEART: Regular S1, S2. A 1/6 systolic ejection murmur. ABDOMEN: Positive bowel sounds, soft, and nontender. EXTREMITIES: No cyanosis, clubbing, or edema. LABORATORY DATA: Labs on 11/29/2017, white cell count is 8.7, hemoglobin 12.7, hematocrit 37.2, platelets 322. Sodium 137, potassium 3.5, chloride 105, CO2 of 25, BUN 10, creatinine 0.6, blood glucose 157. Chest x-ray done on 11/29/2017 showed no active pulmonary disease with no finding suggestive of acute or significant cardiovascular disease. EKG done on 11/29/2017 shows sinus bradycardia, minimal voltage criteria for LVH; may be normal variant. IMPRESSION: 1. Osteoarthritis of the left knee. 2. Diabetes with neuropathy. 3. Hypertension. 4. Hypercholesterolemia. 5. Hypothyroidism. 6. Gastritis. 7. Bipolar disorder. 8. Schizoaffective disorder. PLAN: The patient has been admitted to 3- [facility]. CBC and comprehensive metabolic panel has been ordered for the a.m. as well as urinalysis, culture and sensitivity. The patient will continue Tylenol 650 mg every 6 hours p.r.n. pain. The patient will continue physical therapy upon discharge from the hospital. Fasting finger-sticks every morning have been ordered. Labs done at the office on 09/28/2017 revealed hemoglobin A1c is 5.6% indicating controlled diabetes. Labs also indicated on 09/28/2017, total cholesterol is 149, triglycerides were 167 mg/dL, HDL cholesterol was 38 mg/dL, and LDL was 78 mg/dL. The patient will continue with Crestor 10 mg daily. The patient's TSH on 09/28/2017 was 3.310. The patient will continue levothyroxine 88 mcg daily. The patient also had vitamin D deficiency indicated by a vitamin D 25-hydroxy at 16.7 ng/mL. The patient will continue on Citracal plus D 600/500 international units twice daily. The patient will follow up at my office following discharge from the hospital to recheck her blood pressure and adjust her medications accordingly. Delilah Chang MD
== END 2017-12-01 07:45 | DRG 885 ==
LOC: H.ER 08:39 → H.ERHOLD 10:47 → H.STEP 11:50
PROVIDERS: ADMIT Psychiatry & Neurology Psychiatry; ATTEND Psychiatry & Neurology Psychiatry
PROC: GZHZZZZ Group Psychotherapy (ICD-10-PCS; principal; 2017-11-29)
DX: F25.0 Schizoaffective disorder, bipolar type (principal); E03.9 Hypothyroidism, unspecified; I10 Essential (primary) hypertension; E78.00 Pure hypercholesterolemia, unspecified; G25.81 Restless legs syndrome; E11.40 Type 2 diabetes mellitus with diabetic neuropathy, unspecified; M17.12 Unilateral primary osteoarthritis, left knee; K29.70 Gastritis, unspecified, without bleeding; M19.90 Unspecified osteoarthritis, unspecified site; E55.9 Vitamin D deficiency, unspecified; Z91.018 Allergy to other foods

== ENCOUNTER 2018-07-12 13:17 | Emergency (ER) | payer MEDICARE, OTHER ==
[2018-07-12 13:17] VITALS: BMI 21.9
[2018-07-12 13:31] VITALS: RESP 18; O2SAT 99
[2018-07-12 15:32] LABS: BASO % 0.4 % (0.0-2.0); EOS # 0.1 K/uL (0.0-0.7); EOS % 0.8 % (0.0-4.0); HEMOGLOBIN 14.4 g/dL (12.0-16.0); LYMPH # 1.6 K/uL (1.0-4.3); LYMPH % 23.5 % (20.0-40.0); MEAN CELL VOLUME 89.2 fl (81.0-99.0); MEAN CORPUSCULAR HEMOGLOBIN 30.4 pg (27.0-31.0); MEAN CORPUSCULAR HGB CONC 34.1 g/dL (33.0-37.0); MEAN PLATELET VOLUME 8.2 fl (7.2-11.7); MONO # 0.6 K/uL (0.0-0.8); NEUT # 4.6 K/uL (1.8-7.0); NEUT % 67.3 % (50.0-75.0); NRBC % 0.1 % (0.0-0.0); RBC 4.73 Mil/uL (3.80-5.20); WHITE BLOOD COUNT 6.9 K/uL (4.8-10.8)
[2018-07-12 15:43] LABS: ALB/GLOB RATIO 1.2 (1.0-2.1); ALBUMIN 4.7 g/dL (3.5-5.0); ALT/SGPT 32 U/L (9-52); AST/SGOT 36 U/L (14-36); BLOOD UREA NITROGEN 15 mg/dl (7-17); CALCIUM 10.3 mg/dL (8.4-10.2); GFR NON-AFRICAN AMERICAN > 60
--- NOTE | 2018-07-12 15:57 | RAD ---
Date of service: 07/12/2018 HISTORY: Psychiatry evaluation COMPARISON: 11/29/2017. TECHNIQUE: Chest PA and lateral FINDINGS: LINES AND TUBES: None. LUNG AND PLEURA: The lungs are well inflated and clear. No pleural effusion or pneumothorax. HEART AND MEDIASTINUM: The heart is not enlarged. There are aortic atherosclerotic calcifications present. The hilar and mediastinal contours are within normal limits. SKELETAL STRUCTURES: The bony structures are within normal limits for the patient's age. VISUALIZED UPPER ABDOMEN: Normal. OTHER FINDINGS: None. IMPRESSION: No active pulmonary disease.
--- NOTE | 2018-07-12 16:23 | ED PDOC ---
HPI: Psych/Substance Abuse Time Seen by Provider: 07/12/18 14:20 Chief Complaint (Nursing): Psychiatric Evaluation Chief Complaint (Provider): CRISIS EVAL History Per: Patient, EMS History/Exam Limitations: other ([facility] ) Onset/Duration Of Symptoms: Unknown Current Symptoms Are (Timing): Still Present Suicide/Self Injury Attempted (Context): None Modifying Factor(s): None Severity: Severe Associated Symptoms: Anxiety, Paranoia Involuntary Hold By: Emergency Physician Additional History Per: Patient, EMS Additional Complaint(s): 58 Y/O FEMALE WITH PAST MEDICAL HX OF SCHIZOPHRENIA AND BIPOLAR DISORDER, B ROUGHT IN BY EMS FOR [facility] AND FLIGHT OF IDEAS. PT IS RELIGIOUSLY PREOCCUPIED STATING "THEY WANT TO DESTROY THE SLAUGHTER" "THEY CANT KILL HIM BECAUSE THEN BOOKER WILL BE BORN." PT STATES SHE HAS NO SI BUT HEARING VOICES TELLING HER, HER NAME. Past Medical History Vital Signs: Last Vital Signs Temp 99.1 F 07/12/18 13:29 Pulse 133 H 07/12/18 13:29 Resp 18 07/12/18 13:29 BP 107/72 07/12/18 13:29 Pulse Ox 99 07/12/18 13:29 - Medical History PMH: Anxiety, Arthritis, Bipolar Disorder, Depression, Diabetes, Hypercholesterolemia, Hyperthyroidism, Hypothyroidism, Schizophrenia (schizoaffective) Denies: Hepatitis, HIV, HTN, Chronic Kidney Disease, Seizures, Sexually Transmitted Disease - Surgical History Surgical History: Cholecystectomy, Hernia Repair (umbilical hernia repair) - Family History Family History: States: Unknown Family Hx - Living Arrangements Living Arrangements: Other (UNKNOWN) - Social History Alcohol: Other (UNKNOWN) Drugs: Other (UNKNOWN) - Immunization History Hx Tetanus Toxoid Vaccination: Yes Hx Influenza Vaccination: Yes Hx Pneumococcal Vaccination: Yes - Home Medications Home Medications: Ambulatory Orders Medication Instructions Recorded Benztropine [Cogentin] 1 mg PO BID #30 tab 05/16/17 Haloperidol Decanoate [Haldol 100 mg IM Q30D #1 amp 05/16/17 Decanoate] Levothyroxine [Synthroid] 88 mcg PO 0600 #7 tab 05/16/17 [place] Carbonate [[place] 300 mg PO AMHS #30 cap 05/16/17 Carbonate 300MG] Losartan [Cozaar] 50 mg PO DAILY #7 tab 05/16/17 OLANZapine [Zyprexa Zydis] 5 mg PO HS #14 odt 05/16/17 metFORMIN [glucOPHAGE] 500 mg PO BID #15 tab 05/16/17 Levothyroxine [Synthroid] 88 mcg PO DAILY 08/01/17 Losartan [Cozaar] 50 mg PO DAILY 08/01/17 metFORMIN [glucOPHAGE] 500 mg PO BID 08/01/17 Famotidine [Pepcid] 20 mg PO DAILY 08/20/17 Pregabalin [Lyrica] 75 mg PO Q12 08/20/17 Atorvastatin [Lipitor] 20 mg PO DAILY tab 11/22/17 traZODone [Desyrel] 25 mg PO HS PRN tab 11/22/17 [place] Carbonate [[place] 300 mg PO DAILY cap 12/01/17 Carbonate 300MG] [place] Carbonate [[place] 600 mg PO HS cap 12/01/17 Carbonate 300MG] Multimineral/Multivitamin 1 tab PO DAILY tab 12/01/17 [Therapeutic-M Tab] traZODone [Desyrel] 50 mg PO HS PRN tab 12/01/17 - Allergies Allergies/Adverse Reactions: Allergies Allergy/AdvReac Type Severity Reaction Status Date / Time tomato Allergy RASH Verified 01/18/18 08:06 Review of Systems Review Of Systems: ROS cannot be obtained secondary to pt's inabilty to answer questions. Physical Exam - Reviewed Nursing Documentation Reviewed: Yes Vital Signs Reviewed: Yes - Physical Exam Appears: Positive for: Well, No Acute Distress Head Exam: Positive for: ATRAUMATIC, NORMAL INSPECTION, NORMOCEPHALIC Skin: Positive for: Normal Color, Warm, DRY Eye Exam: Positive for: Normal appearance ENT: Positive for: Normal ENT Inspection Neck: Positive for: Normal, Painless ROM Cardiovascular/Chest: Positive for: Tachycardia (104 ON ECG ) Respiratory: Positive for: CNT, Normal Breath Sounds Gastrointestinal/Abdominal: Positive for: Normal Exam, Soft, Tenderness (NEG ) Back: Positive for: Normal Inspection Extremity: Positive for: Normal ROM Neurological/Psych: Positive for: Awake, Alert, Normal Tone, Mood/Affect (PARANOID, ANXIOUS, FLIGHT OF IDEAS, DIFFICULTY REORIENTING AND CONCENTRATION ) - Laboratory Results Result Diagrams: 07/12/18 15:07 07/12/18 15:07 Lab Results: Total Bilirubin 1.0 mg/dl (0.2-1.3) 07/12/18 15:07 AST 36 U/L (14-36) 07/12/18 15:07 ALT 32 U/L (9-52) 07/12/18 15:07 Alkaline Phosphatase 116 U/L (38-126) 07/12/18 15:07 Total Protein 8.8 G/DL (6.3-8.2) H 07/12/18 15:07 Albumin 4.7 g/dL (3.5-5.0) 07/12/18 15:07 Globulin 4.1 gm/dL (2.2-3.9) H 07/12/18 15:07 Albumin/Globulin Ratio 1.2 (1.0-2.1) 07/12/18 15:07 - ECG ECG Rhythm: Positive for: Sinus Tachycardia Interpretation Of ECG: SIGNED BY DR. NOGUERA Rate: 104 O2 Sat by Pulse Oximetry: 99 Pulse Ox Interpretation: Normal - Radiology X-Ray: Viewed By Me, Read By Radiologist X-Ray Interpretation: No Acute Disease - Progress ED Course And Treament: CBC CMP UA URINE DRUG SCREEN EKG CXR 1:1 OBS SAFETY CRISIS EVAL 1848: PT CONTINUED ON 1:1 OBS, WAITING FOR URINE SPECIMEN TO CLEAR PT MEDICALLY FOR POSS INVOLUNTARY ADMISSION TO PSYCH, RN INSTRUCTED TO HYDRATE PT. NO FURTHER TREATMENT AT THIS TIME. ' 20:00 PT HANDED OFF TO JULIETTE MURRY PA-C. PENDING ALCOHOL LEVEL FOR CRISIS SCREENING Disposition - Clinical Impression Clinical Impression: Schizo affective schizophrenia, Encounter for medical clearance for patient hold - Disposition Disposition: Transfer of Care Disposition Time: 20:00 Condition: FAIR Patient Signed Over To: Juliette White Handoff Comments: ALCOHOL LEVEL PENDING - POA Present On Arrival: None
[2018-07-12 19:40] LABS: URINE BILIRUBIN NEGATIVE (NEGATIVE); URINE BLOOD NEGATIVE (NEGATIVE); URINE CLARITY SLIGHTY-CLOUDY (Clear); URINE COLOR YELLOW (YELLOW); URINE GLUCOSE (UA) NEG (NEGATIVE); URINE LEUKOCYTE ESTERASE TRACE Leu/uL (Negative); URINE PROTEIN 30 mg/dL (NEGATIVE); URINE UROBILINOGEN 0.2-1.0 mg/dL (0.2-1.0)
[2018-07-12 20:01] LABS: BARBITURATES, UR NEGATIVE (NEGATIVE); BENZODIAZEPINES, UR NEGATIVE (NEGATIVE); OPIATES, UR NEGATIVE (NEGATIVE); PHENCYCLIDINE, UR NEGATIVE (NEGATIVE)
[2018-07-12 20:12] VITALS: PULSE 104
--- NOTE | 2018-07-12 21:13 | ED PDOC ---
- Laboratory Results Result Diagrams: 07/12/18 15:07 07/12/18 15:07 Lab Results: Total Bilirubin 1.0 mg/dl (0.2-1.3) 07/12/18 15:07 AST 36 U/L (14-36) 07/12/18 15:07 ALT 32 U/L (9-52) 07/12/18 15:07 Alkaline Phosphatase 116 U/L (38-126) 07/12/18 15:07 Total Protein 8.8 G/DL (6.3-8.2) H 07/12/18 15:07 Albumin 4.7 g/dL (3.5-5.0) 07/12/18 15:07 Globulin 4.1 gm/dL (2.2-3.9) H 07/12/18 15:07 Albumin/Globulin Ratio 1.2 (1.0-2.1) 07/12/18 15:07 Urine Color Yellow (YELLOW) 07/12/18 19:31 Urine Clarity Slighty-cloudy (Clear) 07/12/18 19: Urine pH 6.0 (5.0-8.0) 07/12/18 19:31 Ur Specific Zeigler 1.016 (1.003-1.030) 07/12/18 19:31 Urine Protein 30 mg/dL (NEGATIVE) 07/12/18 19:31 Urine Glucose (UA) Neg mg/dL (NEGATIVE) 07/12/18 19:31 Urine Ketones Trace mg/dL (NEGATIVE) 07/12/18 19:31 Urine Blood Negative (NEGATIVE) 07/12/18 19: Urine Nitrate Negative (NEGATIVE) 07/12/18 19: Urine Bilirubin Negative (NEGATIVE) 07/12/18 19:31 Urine Urobilinogen 0.2-1.0 mg/dL (0.2-1.0) 07/12/18 19:31 Ur Leukocyte Esterase Trace Rakesh/uL (Negative) 07/12/18 19:31 Urine RBC (Auto) 3 /hpf (0-3) 07/12/18 19:31 Urine Microscopic WBC 5 /hpf (0-5) 07/12/18 19:31 - ECG O2 Sat by Pulse Oximetry: 99 - Progress ED Course And Treament: Case endorsed to sba underwriter from Inés FITZGERALD pending [facility] eval 21:25 Notified by creamery worker that patient was evaluated and accepted by [facility] pending available bed 23:00 Patient awake, resting comfortably 00:30 Patient awake, resting comfortably 1:30 Bed available at [facility]. Arrangements made for transfer Disposition - Clinical Impression Clinical Impression: Schizoaffective disorder, bipolar type - POA Present On Arrival: None - Disposition Disposition: Other Institution ([facility]) Disposition Time: 01:43 Condition: STABLE Forms: Sensorist (Gu[place]ian)
[2018-07-13 01:19] VITALS: BP 118/76; TEMP 99.4
--- NOTE | 2018-07-13 19:08 | CARD ---
APPROVED REPORT Date of service: 07/12/2018 EKG Measurement Heart [id number] <Conclusion> Sinus tachycardia Possible inferior infarct, age undetermined Abnormal Electrocardiogram
== END 2018-07-13 02:44 | disposition short-term general hospital (02) ==
LOC: H.ER 13:17
DX: F25.0 Schizoaffective disorder, bipolar type (principal); E03.9 Hypothyroidism, unspecified; E11.9 Type 2 diabetes mellitus without complications; E78.00 Pure hypercholesterolemia, unspecified; F41.9 Anxiety disorder, unspecified; Z79.84 Long term (current) use of oral hypoglycemic drugs
CPT/HCPCS: 71046; 80053; 81003; 85025; 93005; 99283; G0480